=== PATIENT | female | born 1935 | race Two or more races ===

== ENCOUNTER 2016-08-13 14:51 | Inpatient (IN) | payer MEDICARE, MEDICAID ==
[~2016-08-13] VITALS: Ht 152.4 cm; Wt 45.4 kg
--- NOTE | 2016-08-13 14:35 | Emergency Room Report ---
History of Present Illness General Chief Complaint: General Complaint Source: Patient, EMS Present Illness HPI The patient is brought in for failure to thrive. She is from a SNF situation. Apparently she's not been eating. She complains about a mild headache. Diffuse in the top of her head. Chronic and constant (she denies pain to RN). She's not had a medication that she knows of for this. She denies any fevers, chills, cough, nausea, vomiting, diarrhea, dysuria or joint pain. She does have a history of schizophrenia and therefore the history is questionable. H/O non-thrombocytopenic purpura, chronic renal disease Allergies: Coded Allergies: No Known Allergies (Unverified , 08/13/16) Patient History Past Medical History: see triage record Social History: Denies: smoking Social History Narrative SNF Now: No Reviewed Nursing Documentation: PMH: Agreed, PSxH: Agreed Review of Systems All Other Systems: limited Physical Exam Vital Signs Date Time Temp Pulse Resp B/P Pulse Ox O2 Delivery O2 Flow Rate FiO2 08/13/16 14:26 98.1 78 16 100/60 98 Room Air Sp02 EP Interpretation: reviewed, normal General Appearance: no apparent distress, non-toxic, other - delusoinal, Chronically Ill Head: normocephalic Eyes: bilateral eye PERRL, bilateral eye normal inspection ENT: dry mucus membranes Neck: supple Respiratory: lungs clear, normal breath sounds Cardiovascular #1: bradycardia Cardiovascular #2: 2+ radial (R) Gastrointestinal: normal inspection, normal bowel sounds, non tender, no mass, non-distended Musculoskeletal: back normal, normal range of motion Neurologic: alert, motor strength/tone normal, DTRs symmetric, sensory intact, cerebellar normal, speech normal - pressured, oriented - X1 Psychiatric: no suicidal/homicidal ideation, other - delusoinal, confabulates and responds to internal stimuli Skin: normal inspection, warm/dry Medical Decision Making Diagnostic Impression: Primary Impression: Failure to thrive Qualified Codes: R62.7 - Adult failure to thrive Additional Impressions: Bradycardia Renal insufficiency Schizophrenia Qualified Codes: F20.9 - Schizophrenia, unspecified ER Course The patient presents not eating from a nursing home facility. She has a history of schizophrenia. Differential includes occult infection, to thrive, exacerbation of schizophrenia amongst others. Evaluation be undertaken with labs, EKG, chest x-ray and urinalysis. Patient will be given gentle IV hydration. The patient EKG shows bradycardia. The patient tolerating this well and is quite loquacious. TSH will be obtained. Labs remarkable for renal insufficiency. Patient ate here. Patient escalating here. Somewhat delusional. Ativan ordered. Improved with ativan an resting. Patient still needs observation. Admit telemetry Dr. Jain. Laboratory Tests Test 08/13/16 14:59 White Blood Count 6.3 K/UL (4.8-10.8) Red Blood Count 4.17 M/UL (4.20-5.40) L Hemoglobin 11.8 G/DL (12.0-16.0) L Hematocrit 37.8 % (37.0-47.0) Mean Corpuscular Volume 91 FL (80-99) Mean Corpuscular Hemoglobin 28.3 PG (27.0-31.0) Mean Corpuscular Hemoglobin Concent 31.2 G/DL (32.0-36.0) L Red Cell Distribution Width 13.5 % (11.6-14.8) Platelet Count 271 K/UL (150-450) Mean Platelet Volume 8.5 FL (6.5-10.1) Neutrophils (%) (Auto) 67.6 % (45.0-75.0) Lymphocytes (%) (Auto) 22.2 % (20.0-45.0) Monocytes (%) (Auto) 5.9 % (1.0-10.0) Eosinophils (%) (Auto) 3.6 % (0.0-3.0) H Basophils (%) (Auto) 0.7 % (0.0-2.0) Prothrombin Time 10.5 SEC (9.30-11.50) Prothrombin Time INR 1.0 (0.9-1.1) PTT 24 SEC (23-33) Sodium Level 141 mEQ/L (135-145) Potassium Level 3.7 mEQ/L (3.4-4.9) Chloride Level 95 mEQ/L (98-107) L Carbon Dioxide Level 31 mEQ/L (20-30) H Anion Gap 15 (5-15) Blood Urea Nitrogen 47 mg/dL (7-23) H Creatinine 2.7 mg/dL (0.5-0.9) H Estimate Glomerular Filtration Rate mL/min (>60) Glucose Level 80 mg/dL (74-106) Calcium Level 8.7 mg/dL (8.6-10.2) Total Bilirubin 0.2 mg/dL (0.0-1.2) Aspartate Amino Transferase (AST) 19 U/L (5-40) Alanine Aminotransferase (ALT) 5 U/L (3-33) Alkaline Phosphatase 82 U/L (35-104) Total Creatine Kinase 33 U/L (26-140) Troponin I < 0.30 ng/mL (<=0.30) Pro-B-Type Natriuretic Peptide 923 pg/mL (0-450) H Total Protein 6.7 g/dL (6.6-8.7) Albumin 3.6 g/dL (3.5-5.2) Globulin 3.1 g/dL Albumin/Globulin Ratio 1.1 (1.0-2.7) Lipase 93 U/L (< 60) H Thyroid Stimulating Hormone (TSH) 3.550 uIU/mL (0.300-4.500) EKG Diagnostic Results Rate: bradycardiac Rhythm: NSR ST Segments: no acute changes Rhythm Strip Diag. Results EP Interpretation: yes Rhythm: no PVC's, no ectopy Chest X-Ray Diagnostic Results EP Interpretation: Yes Findings: no consolidation, no effusion, no pneumothorax, no acute cardiopulmonary disease Number of Views: 1 Last Vital Signs Date Time Temp Pulse Resp B/P Pulse Ox O2 Delivery O2 Flow Rate FiO2 08/14/16 04:00 97.2 55 18 141/74 98 Room Air Status: improved Disposition: ADMITTED INPATIENT Condition: Serious Prudencio Delgado M.D. Aug 13, 2016 14:35
[~2016-08-13 14:51] MED LIST: ACETAMINOP160 MG/54 ORAL; AMLODIPINE BESY10 MG ORAL; ARICEPT10 MG ORAL; CATAPRES0.1 MG ORAL; DOCUSATE SODIU100 MG ORAL; METOPROLOL TART50 M1 ORAL; MILK OF MA2400 MG/10 ORAL; MULTIVITAMINS1 EAC2 ORAL; TYLENOL650 MG/20. ORAL
[2016-08-13 14:52] VITALS: BP 112/92
[2016-08-13 15:11] LABS: BASOPHILS % (AUTO) 0.7 % (0.0-2.0); EOSINOPHILS % (AUTO) 3.6 % (0.0-3.0); LYMPHOCYTES % (AUTO) 22.2 % (20.0-45.0); MEAN CORPUSCULAR HEMOGLOBIN 28.3 PG (27.0-31.0); MEAN CORPUSCULAR HGB CONC 31.2 G/DL (32.0-36.0); MEAN CORPUSCULAR VOLUME 91 FL (80-99); MEAN PLATELET VOLUME 8.5 FL (6.5-10.1); MONOCYTES % (AUTO) 5.9 % (1.0-10.0); NEUTROPHILS % (AUTO) 67.6 % (45.0-75.0); PLATELET COUNT 271 K/UL (150-450); RED BLOOD COUNT 4.17 M/UL (4.20-5.40); RED CELL DISTRIBUTION WIDTH 13.5 % (11.6-14.8); WHITE BLOOD COUNT 6.3 K/UL (4.8-10.8)
[2016-08-13 15:22] LABS: PROTHROMBIN TIME 10.5 SEC (9.30-11.50)
[2016-08-13 15:27] LABS: TROPONIN I < 0.30 ng/mL (<=0.30)
[2016-08-13 15:28] LABS: ALANINE AMINOTRANSFERASE 5 U/L (3-33); ASPARTATE AMINO TRANSFERASE 19 U/L (5-40); CALCIUM 8.7 mg/dL (8.6-10.2); CHLORIDE 95 mEQ/L (98-107); CREATININE 2.7 mg/dL (0.5-0.9); LIPASE 93 U/L (< 60); POTASSIUM 3.7 mEQ/L (3.4-4.9); SODIUM 141 mEQ/L (135-145)
[2016-08-13 15:42] LABS: ALBUMIN/GLOBULIN RATIO 1.1 (1.0-2.7); ANION GAP 15 (5-15); CARBON DIOXIDE 31 mEQ/L (20-30); HEMOLYSIS 10; TOTAL PROTEIN 6.7 g/dL (6.6-8.7)
--- NOTE | 2016-08-13 16:27 | Diagnostic Imaging Report ---
Indication: Chest pain Technique: Single portable AP view of the chest. Findings: Comparison: None. Aortic arch mildly calcified. The bones and extra pulmonary soft tissues, remainder of the cardiomediastinal silhouette, pulmonary vasculature and parenchyma, and pleural surfaces are unremarkable. IMPRESSION: Otosclerosis Otherwise negative portable AP chest.
[2016-08-13 16:44] VITALS: BP 116/82
[2016-08-13] MEDS ORDERED: Mylanta II UD 30ml ORAL PRN (17:45)
[2016-08-13] MEDS ORDERED: Morphine Sulfate 2mg/ml Inj IVP PRN (17:45)
[2016-08-13] MEDS ORDERED: Zolpidem 5mg tab ORAL PRN (17:45)
[2016-08-13] MEDS ORDERED: LORazepam Inj 2mg/ml 1ml IV PRN (17:45)
[2016-08-13] MEDS ORDERED: Miralax 17gm pkt ORAL PRN (17:45)
[2016-08-13] MEDS ORDERED: LORazepam Inj 2mg/ml 1ml IV ONE (18:15)
[2016-08-13] MEDS ORDERED: LORazepam 1mg tab ORAL ONE (18:15)
[2016-08-13 18:48] VITALS: BP 114/79
[2016-08-13] MEDS: Metoprolol 50mg tab ORAL SCH (21:00)
[2016-08-13 21:34] VITALS: BP 125/63
[2016-08-13 23:20] VITALS: BP 126/68
[2016-08-13] MEDS: Heparin 5000 units/ml inj SUBQ SCH (23:30)
[2016-08-14] VITALS (7 sets, daily range): BP systolic 98–160; BP diastolic 55–85
[2016-08-14] MEDS: Heparin 5000 units/ml inj SUBQ SCH ×2 (09:00→20:54)
[2016-08-14] MEDS: Metoprolol 50mg tab ORAL SCH ×2 (09:37→20:54)
[2016-08-14] MEDS: Donepezil 10mg tab ORAL SCH (09:37)
[2016-08-14 10:00] LABS: BASOPHILS % (AUTO) 0.6 % (0.0-2.0); EOSINOPHILS % (AUTO) 2.4 % (0.0-3.0); LYMPHOCYTES % (AUTO) 23.6 % (20.0-45.0); MEAN CORPUSCULAR HEMOGLOBIN 28.7 PG (27.0-31.0); MEAN CORPUSCULAR HGB CONC 31.6 G/DL (32.0-36.0); MEAN CORPUSCULAR VOLUME 91 FL (80-99); MEAN PLATELET VOLUME 7.9 FL (6.5-10.1); MONOCYTES % (AUTO) 5.8 % (1.0-10.0); NEUTROPHILS % (AUTO) 67.6 % (45.0-75.0); PLATELET COUNT 243 K/UL (150-450); RED BLOOD COUNT 4.77 M/UL (4.20-5.40); RED CELL DISTRIBUTION WIDTH 13.4 % (11.6-14.8); WHITE BLOOD COUNT 4.4 K/UL (4.8-10.8)
--- NOTE | 2016-08-14 10:08 | History and Physical Report ---
DATE OF ADMISSION: 08/13/2016 TIME SEEN: At 7 a.m. ATTENDING PHYSICIAN: Jong Jain D.O. CONSULTANTS: 1. Jong Jain D.O. 2. Milad Gavin M.D. 3. Paramjit Avery M.D. 4. Lolita Rey M.D. CHIEF COMPLAINT: Failure to thrive, weakness, and confusion. BRIEF HISTORY: This is a 80-year-old female from [facility] presented with above-mentioned diagnoses admitted to medical floor for further treatment and plan. The patient is bedside, confused, not talking much. REVIEW OF SYSTEMS: Unavailable. PAST MEDICAL HISTORY: Include failure to thrive, , severe bradycardia, hypertension, and schizophrenia. PAST SURGICAL HISTORY: None. MEDICATIONS: Include Norvasc, Aricept, Lopressor, Tylenol, Morphine, MiraLAX, Zofran, Ativan, Ambien, Mylanta, and Dextrose. ALLERGIES: Denies. SOCIAL HISTORY: No smoking. No alcohol. No intravenous drug abuse. FAMILY HISTORY: Noncontributory. PHYSICAL EXAMINATION: GENERAL: Calm in bed, oriented x4, in no acute distress. VITAL SIGNS: Showed a temperature 97, pulse 55, respirations 18, and blood pressure 141/74. CARDIOVASCULAR: No murmur. LUNGS: Poor air exchange. ABDOMEN: Bowel sounds positive. Nontender and nondistended. EXTREMITIES: No cyanosis, clubbing, or edema. NEUROLOGIC: The patient moves all extremities with slightly weak. LABORATORY DATA: Labs at this time show hemoglobin 11.8, otherwise CBC is normal. BMP shows chloride 95, bicarbonate 31, BUN and creatinine 47 and 2.7, BNP is 923 and INR is 11.0. PTT is 24. ASSESSMENT: 1. Failure to thrive. 2. Anemia. 3. . 4. Severe bradycardia. 5. Hypertension. 6. Schizophrenia. PLAN: Continue premedications. OT/PT and dietary evaluation, CBC and BNP with Dr. Avery, Dr. Gavin, Dr. Knight, Dr. Laughlin, and Dr. Gamboa to consult. Jong Jain D.O. DR: SU JOB#: [id number] CC:
[2016-08-14 10:15] LABS: ALANINE AMINOTRANSFERASE 6 U/L (3-33); AMYLASE 45 U/L (10-110); ANION GAP 13 (5-15); ASPARTATE AMINO TRANSFERASE 19 U/L (5-40); CARBON DIOXIDE 32 mEQ/L (20-30); CHLORIDE 99 mEQ/L (98-107); CHOLESTEROL 176 mg/dL (< 200); CHOLESTEROL/HDL RATIO 3.1 (3.3-4.4); CREATININE 1.6 mg/dL (0.5-0.9); HEMOLYSIS 7; LDL CHOLESTEROL (CALC.) 82 mg/dL (60-99); LIPASE 82 U/L (< 60); SODIUM 144 mEQ/L (135-145); TOTAL PROTEIN 7.1 g/dL (6.6-8.7)
--- NOTE | 2016-08-14 10:48 | Consultation ---
History of Present Illness General Date patient seen: Aug 14, 2016 Time patient seen: 10:00 Chief Complaint: General Complaint Referring physician: dr Jain Reason for Consultation: medical management Present Illness HPI 80 y/old female with hx of schizophrenia brought to ED from SNF for evaluation for failure to thrive. patient was not eating. She complained of mild diffuse constant headache in ED She denied any fevers, chills, cough, nausea, vomiting, diarrhea, dysuria, flank pain or joint pain. patient is not quite a reliable in providing info giving her history of schizophrenia Workup in ED revealed evidence of renal insufficiency -47/2.7 troponin negative ECG SB slightly elevated lipase -93 CXR no acute cardiopulmonary changes patient was admitted for further management Allergies: Coded Allergies: No Known Allergies (Unverified , 08/13/16) Medication History Scheduled Amlodipine Besylate* (Amlodipine Besylate*), 10 MG ORAL DAILY, (Reported) Clonidine Hcl* (Catapres*), 0.1 MG ORAL EVERY 4 HOURS, (Reported) Docusate Sodium* (Docusate Sodium*), 100 MG ORAL TWICE A DAY, (Reported) Donepezil Hcl* (Aricept*), 10 MG ORAL DAILY, (Reported) Magnesium Hydroxide* (Milk Of Magnesia*), 30 ML ORAL DAILY, (Reported) Metoprolol Tartrate* (Metoprolol Tartrate*), 50 MG ORAL EVERY 12 HOURS, ( Reported) Multivitamins* (Multivitamins*), 1 TAB ORAL DAILY, (Reported) Scheduled PRN Acetaminophen (Acetaminophen), 650 MG ORAL Q6H PRN for Prn Headache/Temp > 101, (Reported) Acetaminophen* (Acetaminophen*), 320 MG ORAL Q6H PRN for Mild Pain/Temp > 100.5, (Reported) Patient History Healthcare decision maker SHAHBAZ ARDON Resuscitation status Full Code Advanced Directive on File No Past Medical/Surgical History Past Medical/Surgical History: (1) HTN (hypertension) (2) Encephalopathy (3) Renal insufficiency (4) Schizophrenia Review of Systems Constitutional: Reports: weakness Eye: Reports: no symptoms ENT: Reports: no symptoms Respiratory: Reports: no symptoms Cardiovascular: Reports: no symptoms Gastrointestinal: Reports: no symptoms Genitourinary: Reports: see HPI Musculoskeletal: Reports: no symptoms Skin: Reports: no symptoms Psychiatric: Reports: other - schizophrenia Neurological: Reports: other - encephalopathy Endocrine: Reports: no symptoms Hematologic/Lymphatic: Reports: no symptoms ROS Narrative patient is not reliable in providing history giving her diagnosis of schizophrenia, limited ROS Physical Exam General Appearance: no apparent distress, alert, cachetic, other - slightly agitated, awake, alert, resposnive, no eye contact Lines, tubes and drains: peripheral HEENT: normocephalic, atraumatic, anicteric, mucous membranes moist Neck: non-tender, supple Respiratory/Chest: lungs clear, normal breath sounds, no respiratory distress, no accessory muscle use Cardiovascular/Chest: normal rate - occ nicanor in 50 th, regular rhythm, no JVD Abdomen: normal bowel sounds, non tender, soft, no organomegaly Extremities: normal range of motion, non-tender, normal inspection, no calf tenderness, normal capillary refill, non-pitting Neurologic: no motor/sensory deficits, alert, responsive Musculoskeletal: normal muscle bulk Last 24 Hour Vital Signs Date Time Temp Pulse Resp B/P Pulse Ox O2 Delivery O2 Flow Rate FiO2 08/14/16 09:38 73 133/70 08/14/16 09:37 73 133/70 08/14/16 04:00 97.2 55 18 141/74 98 Room Air 08/14/16 01:46 97.2 60 16 160/85 99 Room Air 08/14/16 01:30 68 16 128/70 100 Room Air 08/14/16 01:30 68 16 128/70 100 Room Air 08/13/16 23:20 65 17 126/68 100 Room Air 08/13/16 21:34 98.0 59 18 125/63 100 Room Air 08/13/16 21:00 65 126/68 08/13/16 18:48 98.0 62 15 114/79 100 Room Air 08/13/16 16:44 98.0 64 16 116/82 100 Room Air 08/13/16 14:52 98.0 63 16 112/92 97 Room Air 08/13/16 14:26 98.1 78 16 100/60 98 Room Air Intake and Output 08/13/16 08/14/16 19:00 07:00 Intake Total 0 ml 960 ml Balance 0 ml 960 ml Intake Oral 0 ml 360 ml IV Total 600 ml # Voids 1 Laboratory Tests Test 08/13/16 14:59 08/14/16 08:08 08/14/16 08:40 White Blood Count 6.3 K/UL (4.8-10.8) 4.4 K/UL (4.8-10.8) L Red Blood Count 4.17 M/UL (4.20-5.40) L 4.77 M/UL (4.20-5.40) Hemoglobin 11.8 G/DL (12.0-16.0) L 13.7 G/DL (12.0-16.0) Hematocrit 37.8 % (37.0-47.0) 43.2 % (37.0-47.0) Mean Corpuscular Volume 91 FL (80-99) 91 FL (80-99) Mean Corpuscular Hemoglobin 28.3 PG (27.0-31.0) 28.7 PG (27.0-31.0) Mean Corpuscular Hemoglobin Concent 31.2 G/DL (32.0-36.0) L 31.6 G/DL (32.0-36.0) L Red Cell Distribution Width 13.5 % (11.6-14.8) 13.4 % (11.6-14.8) Platelet Count 271 K/UL (150-450) 243 K/UL (150-450) Mean Platelet Volume 8.5 FL (6.5-10.1) 7.9 FL (6.5-10.1) Neutrophils (%) (Auto) 67.6 % (45.0-75.0) 67.6 % (45.0-75.0) Lymphocytes (%) (Auto) 22.2 % (20.0-45.0) 23.6 % (20.0-45.0) Monocytes (%) (Auto) 5.9 % (1.0-10.0) 5.8 % (1.0-10.0) Eosinophils (%) (Auto) 3.6 % (0.0-3.0) H 2.4 % (0.0-3.0) Basophils (%) (Auto) 0.7 % (0.0-2.0) 0.6 % (0.0-2.0) Prothrombin Time 10.5 SEC (9.30-11.50) Prothromb Time International Ratio 1.0 (0.9-1.1) Activated Partial Thromboplast Time 24 SEC (23-33) Sodium Level 141 mEQ/L (135-145) 144 mEQ/L (135-145) Potassium Level 3.7 mEQ/L (3.4-4.9) 3.0 mEQ/L (3.4-4.9) L Chloride Level 95 mEQ/L (98-107) L 99 mEQ/L (98-107) Carbon Dioxide Level 31 mEQ/L (20-30) H 32 mEQ/L (20-30) H Anion Gap 15 (5-15) 13 (5-15) Blood Urea Nitrogen 47 mg/dL (7-23) H 35 mg/dL (7-23) H Creatinine 2.7 mg/dL (0.5-0.9) H 1.6 mg/dL (0.5-0.9) H Estimat Glomerular Filtration Rate mL/min (>60) mL/min (>60) Glucose Level 80 mg/dL (74-106) 113 mg/dL (74-106) H Calcium Level 8.7 mg/dL (8.6-10.2) 9.0 mg/dL (8.6-10.2) Total Bilirubin 0.2 mg/dL (0.0-1.2) 0.2 mg/dL (0.0-1.2) Aspartate Amino Transf (AST/SGOT) 19 U/L (5-40) 19 U/L (5-40) Alanine Aminotransferase (ALT/SGPT) 5 U/L (3-33) 6 U/L (3-33) Alkaline Phosphatase 82 U/L (35-104) 85 U/L (35-104) Total Creatine Kinase 33 U/L (26-140) Troponin I < 0.30 ng/mL (<=0.30) Pro-B-Type Natriuretic Peptide 923 pg/mL (0-450) H Total Protein 6.7 g/dL (6.6-8.7) 7.1 g/dL (6.6-8.7) Albumin 3.6 g/dL (3.5-5.2) 3.6 g/dL (3.5-5.2) Globulin 3.1 g/dL 3.5 g/dL Albumin/Globulin Ratio 1.1 (1.0-2.7) 1.0 (1.0-2.7) Lipase 93 U/L (< 60) H 82 U/L (< 60) H Thyroid Stimulating Hormone (TSH) 3.550 uIU/mL (0.300-4.500) Urine Color Pending Urine Appearance Pending Urine pH Pending Urine Specific [place] Pending Urine Protein Pending Urine Glucose (UA) Pending Urine Ketones Pending Urine Occult Blood Pending Urine Nitrite Pending Urine Bilirubin Pending Urine Urobilinogen Pending Urine Leukocyte Esterase Pending Urine RBC Pending Urine WBC Pending Urine Squamous Epithelial Cells Pending Urine Bacteria Pending Urine Eosinophils Pending Urine Osmolality Pending Urine Random Sodium Pending Urine Random Chloride Pending Urine Potassium Timed Pending Plasma/Serum Osmolality Pending Cortisol Pending Hemoglobin A1c Pending Triglycerides Level 192 mg/dL (< 150) H Cholesterol Level 176 mg/dL (< 200) LDL Cholesterol 82 mg/dL (60-99) HDL Cholesterol 56 mg/dL (> 60) Cholesterol/HDL Ratio 3.1 (3.3-4.4) L Amylase Level 45 U/L (10-110) Height (Feet): 5 Height (Inches): 0.00 Weight (Pounds): 100 Medications Current Medications Medications (Trade) Dose Ordered Sig/Brenda Route PRN Reason Start Time Stop Time Status Last Admin Dose Admin Acetaminophen (Tylenol) 650 mg Q4H PRN ORAL T>100.5 08/13/16 17:45 09/12/16 17:44 Al Hydroxide/Mg Hydroxide (Mylanta II) 30 ml Q6H PRN ORAL dyspepsia 08/13/16 17:45 09/12/16 17:44 Amlodipine Besylate (Norvasc) 10 mg DAILY ORAL 08/14/16 09:00 09/13/16 08:59 08/14/16 09:38 Dextrose (Dextrose 50%) STAT PRN IV Hypoglycemia 08/13/16 17:45 09/12/16 17:44 Donepezil HCl (Aricept) 10 mg DAILY ORAL 08/14/16 09:00 09/13/16 08:59 08/14/16 09:37 Heparin Sodium (Porcine) (Heparin 5000 units/ml) 5,000 units EVERY 12 HOURS SUBQ 08/13/16 21:00 09/12/16 20:59 08/14/16 09:00 Lorazepam (Ativan 2mg/ml 1ml) 0.5 mg Q4H PRN IV For Anxiety 08/13/16 17:45 08/20/16 17:44 Metoprolol Tartrate (Lopressor) 50 mg EVERY 12 HOURS ORAL 08/13/16 21:00 09/12/16 20:59 08/14/16 09:37 Morphine Sulfate (Morphine Sulfate) 1 mg Q4H PRN IVP Severe Pain (Pain Scale 7-10) 08/13/16 17:45 08/20/16 17:44 Ondansetron HCl (Zofran) 4 mg Q6H PRN IVP Nausea & Vomiting 08/13/16 17:45 09/12/16 17:44 Polyethylene Glycol (Miralax) 17 gm HSPRN PRN ORAL Constipation 08/13/16 17:45 09/12/16 17:44 Sodium Chloride (Sodium Chloride 1000ml bag) 1,000 ml @ 150 mls/hr Q6H40M IV 08/13/16 14:30 09/12/16 14:29 08/14/16 09:45 Zolpidem Tartrate (Ambien) 5 mg HSPRN PRN ORAL Insomnia 08/13/16 17:45 09/12/16 17:44 Assessment/Plan Assessment/Plan ASSESSMENT ATN/ARF likely due to dehydration , possible on chronic RI dehydration HTN hypokalemia chronic encephalopathy possible protein calorie malnutrition failure to thrive elevated lipase PLAN OF CARE MS floor IVF, monitor renal parameters, improving renal US avoid nephrotoxic decrease rate to 125 replace K, cehck K and Mg in am BP management with BB and CCB, occasional nicanor likely due to BB PT/OT Dietary eval check prealbumin HH, TSH ,stable check UA LFT stable , lipase trending down, amylase WNL, no abdominal complaints DVT, GI prophylaxis bowel regimen case discussed and evaluated by supervising physician Stefan Gordon)Mandy NP Aug 14, 2016 10:48
[2016-08-14 11:02] LABS: APPEARANCE,URINE CLEAR; KETONES,URINE NEGATIVE (NEGATIVE); NITRITE,URINE NEGATIVE (NEGATIVE); PH,URINE 6 (4.5-8.0); PROTEIN,URINE 2+ (NEGATIVE); UROBILINOGEN,URINE NORMAL MG/DL (0.0-1.0)
[2016-08-14 11:03] LABS: LEUKOCYTE ESTERASE ,URINE 1+ (NEGATIVE); RBC,URINE 0-2 /HPF (0 - 2); SQUAMOUS EPITHELIAL CELL,UR FEW /LPF (NONE/OCC)
[2016-08-14 11:04] LABS: BACTERIA,URINE FEW /HPF
[2016-08-14] MEDS ORDERED: LORazepam 1mg tab ORAL PRN (13:15)
[2016-08-14] MEDS: RisperiDONE 0.25mg tab ORAL SCH ×2 (17:38→17:43)
[2016-08-15] VITALS: BP 188/69
--- NOTE | 2016-08-15 02:58 | Consultation ---
DATE OF CONSULTATION: 08/14/2016 NEPHROLOGY CONSULTATION REFERRING PHYSICIAN: Jong Jain D.O. REASON FOR CONSULTATION: Hypokalemia, acute renal failure, and failure to thrive. HISTORY OF PRESENT ILLNESS: The patient is an 80-year-old female with past medical history significant for history of schizophrenia, hypertension, and malnutrition, who [facility] for an evaluation of decreased oral intake and failure to thrive. Unfortunately, the patient is at this point is confused and unable to provide meaningful history for me. Upon admission in the ER, the patient was found to be hypotensive and also found to have an acute renal failure. Her potassium was also noticed to be low. The patient consequently was admitted in the hospital with diagnosis of acute renal failure, hypokalemia, and failure to thrive. I was called for management of renal disease and electrolyte imbalance. PAST MEDICAL HISTORY: Includin. Hypertension. 2. Dementia. 3. Schizophrenia. 4. History of acute and chronic kidney disease. Baseline creatinine is unknown. MEDICATIONS: Home medications are includin. Amlodipine 10 mg p.o. daily. 2. Catapres 0.1 mg p.r.n. blood pressure more than 160. 3. Colace 100 mg p.o. b.i.d. 4. Aricept 10 mg p.o. daily. 5. Magnesium oxide 30 mg p.o. daily. 6. Metoprolol 50 mg p.o. daily. 7. Ambien one tablet p.o. daily. FAMILY HISTORY: Noncontributory. ALLERGIES: No known drug allergies. REVIEW OF SYSTEMS: Limited since the patient is not able to provide any appropriate answers to my questions but generally she denies any fever, or chills. Weakness was reported. Pulmonary: There was no shortness of breath, cough, or sputum. Cardiovascular: No chest pain or palpitation. Gastrointestinal: There was decreased oral intake. Genitourinary: Denies any dysuria, frequency, or hematuria. Musculoskeletal: No weakness or numbness. PHYSICAL EXAMINATION: VITAL SIGNS: Blood pressure 130/70, pulse rate of 73, respiratory rate of 18, and temperature of 98 degrees. HEAD AND NECK: No JVP. No LAD. Bitemporal wasting. Extraocular movement intact. Pupils are reactive to light and accommodation. LUNGS: Decreased breathing sound on the both sides. CARDIAC: Regular rate and rhythm. S1 and S2. No murmur or rub. ABDOMEN: Soft, nontender, and nondistended. EXTREMITIES: Trace edema. No clubbing. No cyanosis. LABORATORY AND DIAGNOSTIC DATA: The patient has sodium 144, potassium 399, chloride 32, BUN of 35, creatinine of 1.6, glucose of 113, and calcium of 9. ALT of 19, AST of 6, and alkaline phosphorus of 85. The albumin of 3.6, triglycerides of 192, cholesterol of 176, LDL of 82, and HDL of 56. TSH is within normal limits. Urine revealed specific gravity of 1015 pH, protein 2+, leukocyte esterase 1+, no WBC, and no RBC. CBC revealed WBC count of 4, hemoglobin of 13, hematocrit of 43, and platelet count of 243,000. ASSESSMENT: 1. Acute renal failure. 2. Hypokalemia. 3. Failure to thrive. 4. Dehydration. PLAN: Plan for the patient is to start the patient on IV fluid if the patient agrees with IV. Apparently this morning, the patient pulled her IV line. Replace the potassium. Check ultrasound of the kidney to evaluate the kidney size. Check the random urine, protein, creatinine ratio to calculate the proteinuria. Check the urine, sodium, and creatinine to calculate fractional excretion of sodium. Replace the electrolytes as needed. Avoid any NSAIDs and nephrotoxic. At the end, I would like to thank, Dr. Jong Jain, for allowing me to participate in the care of this patient. Luanne Gastelum M.D. DR: SERAFIN JOB#: [id number] CC:
[2016-08-15 04:00] VITALS: BP 161/63
--- NOTE | 2016-08-15 07:03 | General Progress Note ---
Assessment/Plan Problem List: (1) Bradycardia ICD Codes: R00.1 - Bradycardia, unspecified SNOMED: 22584753 (2) Renal insufficiency ICD Codes: N28.9 - Disorder of kidney and ureter, unspecified SNOMED: 322123139 (3) Encephalopathy ICD Codes: G93.40 - Encephalopathy, unspecified SNOMED: 44167621, 220173410 (4) HTN (hypertension) ICD Codes: I10 - Essential (primary) hypertension SNOMED: 83153595 (5) Schizophrenia ICD Codes: F20.9 - Schizophrenia, unspecified SNOMED: 60413780 Qualifiers: Qualified Codes: F20.9 - Schizophrenia, unspecified Status: stable, progressing Assessment/Plan ot pt diet cardio neph psyc f/u cbc bmp am Subjective Constitutional: Reports: weakness Allergies: Coded Allergies: No Known Allergies (Unverified , 08/13/16) All Systems: reviewed and negative except above Subjective sleepy calm Objective Last 24 Hour Vital Signs Date Time Temp Pulse Resp B/P Pulse Ox O2 Delivery O2 Flow Rate FiO2 08/15/16 04:00 98.2 55 20 161/63 96 08/15/16 00:00 97.7 59 18 188/69 100 Room Air 08/14/16 20:54 58 144/82 08/14/16 20:00 97.7 58 20 144/82 97 Room Air 08/14/16 16:00 96.3 73 19 135/70 100 Room Air 08/14/16 12:00 97.8 98 18 98/55 97 Room Air 08/14/16 12:00 97.8 98 18 101/56 97 Room Air 08/14/16 09:38 73 133/70 08/14/16 09:37 73 133/70 08/14/16 08:00 97.3 73 18 133/70 100 Room Air Intake and Output 08/14/16 08/15/16 19:00 07:00 Intake Total 240 ml 600 ml Output Total 50 ml Balance 240 ml 550 ml Intake Oral 240 ml 600 ml Output Urine Total 50 ml # Voids 2 # Bowel Movements 1 1 Laboratory Tests 08/14/16 08:08: Urine Color Pale yellow, Urine Appearance Clear, Urine pH 6, Urine Specific [place] 1.015, Urine Protein 2+H, Urine Glucose (UA) Negative, Urine Ketones Negative, Urine Occult Blood Negative, Urine Nitrite Negative, Urine Bilirubin Negative, Urine Urobilinogen Normal, Urine Leukocyte Esterase 1+H, Urine RBC 0-2 , Urine WBC 2-4, Urine Squamous Epithelial Cells Few, Urine Bacteria Few, Urine Eosinophils None seen, Urine Osmolality [Pending], Urine Random Sodium 110, Urine Random Chloride 86, Urine Potassium Timed 12, Plasma/Serum Osmolality [ Pending], Prealbumin [Pending], Cortisol [Pending] 08/14/16 08:40: White Blood Count 4.4L, Red Blood Count 4.77, Hemoglobin 13.7, Hematocrit 43.2, Mean Corpuscular Volume 91, Mean Corpuscular Hemoglobin 28.7, Mean Corpuscular Hemoglobin Concent 31.6L, Red Cell Distribution Width 13.4, Platelet Count 243, Mean Platelet Volume 7.9, Neutrophils (%) (Auto) 67.6, Lymphocytes (%) (Auto) 23.6, Monocytes (%) (Auto) 5.8, Eosinophils (%) (Auto) 2.4, Basophils (%) (Auto ) 0.6, Sodium Level 144, Potassium Level 3.0L, Chloride Level 99, Carbon Dioxide Level 32H, Anion Gap 13, Blood Urea Nitrogen 35H, Creatinine 1.6H, Estimat Glomerular Filtration Rate , Glucose Level 113H, Hemoglobin A1c 6.0, Calcium Level 9.0, Total Bilirubin 0.2, Aspartate Amino Transf (AST/SGOT) 19, Alanine Aminotransferase (ALT/SGPT) 6, Alkaline Phosphatase 85, Total Protein 7.1, Albumin 3.6, Globulin 3.5, Albumin/Globulin Ratio 1.0, Triglycerides Level 192H, Cholesterol Level 176, LDL Cholesterol 82, HDL Cholesterol 56, Cholesterol /HDL Ratio 3.1L, Amylase Level 45, Lipase 82H Height (Feet): 5 Height (Inches): 0.00 Weight (Pounds): 100 General Appearance: lethargic EENT: normal ENT inspection Neck: normal alignment Cardiovascular: normal peripheral pulses, normal rate, regular rhythm Respiratory/Chest: chest wall non-tender, lungs clear, normal breath sounds Abdomen: normal bowel sounds, non tender, soft Extremities: normal inspection Edema: no edema noted Arm (L), no edema noted Arm (R), no edema noted Leg (L), no edema noted Leg (R), no edema noted Pedal (L), no edema noted Pedal (R), no edema noted Generalized Neurologic: motor weakness Skin: normal pigmentation, warm/dry RAIZA PATINO Aug 15, 2016 07:03
[2016-08-15 08:08] LABS: CORTISOL LC 14.1 ug/dL (.)
[2016-08-15] MEDS: Metoprolol 50mg tab ORAL SCH ×2 (08:25→21:17)
[2016-08-15] MEDS: Donepezil 10mg tab ORAL SCH (08:25)
[2016-08-15] MEDS: RisperiDONE 0.25mg tab ORAL SCH ×2 (08:25→19:01)
[2016-08-15] MEDS: Heparin 5000 units/ml inj SUBQ SCH ×2 (08:35→21:18)
[2016-08-15 08:36] VITALS: BP 118/67
[2016-08-15 10:31] LABS: BASOPHILS % (AUTO) 0.6 % (0.0-2.0); EOSINOPHILS % (AUTO) 1.8 % (0.0-3.0); LYMPHOCYTES % (AUTO) 21.5 % (20.0-45.0); MEAN CORPUSCULAR HEMOGLOBIN 28.1 PG (27.0-31.0); MEAN CORPUSCULAR HGB CONC 31.1 G/DL (32.0-36.0); MEAN CORPUSCULAR VOLUME 90 FL (80-99); MEAN PLATELET VOLUME 8.6 FL (6.5-10.1); MONOCYTES % (AUTO) 5.3 % (1.0-10.0); NEUTROPHILS % (AUTO) 70.8 % (45.0-75.0); PLATELET COUNT 216 K/UL (150-450); RED CELL DISTRIBUTION WIDTH 13.5 % (11.6-14.8)
[2016-08-15 10:44] LABS: ANION GAP 14 (5-15); CALCIUM 8.5 mg/dL (8.6-10.2); CARBON DIOXIDE 24 mEQ/L (20-30); CHLORIDE 100 mEQ/L (98-107); CREATININE 1.3 mg/dL (0.5-0.9); HEMOLYSIS 29; POTASSIUM 4.3 mEQ/L (3.4-4.9); SODIUM 138 mEQ/L (135-145)
--- NOTE | 2016-08-15 12:25 | Pulmonology Progress Note ---
Assessment/Plan Assessment/Plan ASSESSMENT ATN/ARF likely due to dehydration , possible on chronic RI -improving dehydration HTN hypokalemia -resolved chronic encephalopathy possible protein calorie malnutrition failure to thrive elevated lipase PLAN OF CARE MS floor IVF, monitor renal parameters, improving creat down to 1.3 nephro follows renal US avoid nephrotoxic decrease IVF rate K and Mg stable BP management with BB and CCB, occasional nicanor likely due to BB PT/OT Dietary eval prealbumin-WNL HH, TSH ,stable UA -negative LFT stable , lipase trending down, amylase WNL, no abdominal complaints DVT, GI prophylaxis bowel regimen case discussed and evaluated by supervising physician Subjective Allergies: Coded Allergies: No Known Allergies (Unverified , 08/13/16) Subjective afebrile, no leucocytosis, no signs of respiratory distress creat trending down with IV hydration sitter at the bedside Objective Last 24 Hour Vital Signs Date Time Temp Pulse Resp B/P Pulse Ox O2 Delivery O2 Flow Rate FiO2 08/15/16 08:36 97.5 64 19 118/67 97 Room Air 08/15/16 08:25 64 118/67 08/15/16 08:25 64 118/67 08/15/16 04:00 98.2 55 20 161/63 96 08/15/16 00:00 97.7 59 18 188/69 100 Room Air 08/14/16 20:54 58 144/82 08/14/16 20:00 97.7 58 20 144/82 97 Room Air 08/14/16 16:00 96.3 73 19 135/70 100 Room Air Intake and Output 08/14/16 08/15/16 19:00 07:00 Intake Total 240 ml 600 ml Output Total 50 ml Balance 240 ml 550 ml Intake Oral 240 ml 600 ml Output Urine Total 50 ml # Voids 2 # Bowel Movements 1 1 Objective General Appearance: no apparent distress, alert, cachetic, , awake, alert, responsive, slightly anxious, no eye contact Lines, tubes and drains: peripheral HEENT: normocephalic, atraumatic, anicteric, mucous membranes moist Neck: non-tender, supple Respiratory/Chest: lungs clear, normal breath sounds, no respiratory distress, no accessory muscle use Cardiovascular/Chest: normal rate - occ nicanor in 50 th, regular rhythm, no JVD Abdomen: normal bowel sounds, non tender, soft, no organomegaly Extremities: normal range of motion, non-tender, normal inspection, no calf tenderness, normal capillary refill, non-pitting Neurologic: no motor/sensory deficits, alert, responsive Musculoskeletal: normal muscle bulk Microbiology Date/Time Source Procedure Growth Status 08/13/16 15:40 Nasal Nares MRSA Culture - Final NO METHICILLIN RESISTANT STAPH AUREUS... Complete 08/13/16 15:40 Rectum VRE Culture - Final NO VANCOMYCIN RESISTANT ENTEROCOCCUS ... Complete Laboratory Tests 08/15/16 09:50: White Blood Count 6.0, Red Blood Count 4.30, Hemoglobin 12.1, Hematocrit 38.8, Mean Corpuscular Volume 90, Mean Corpuscular Hemoglobin 28.1, Mean Corpuscular Hemoglobin Concent 31.1L, Red Cell Distribution Width 13.5, Platelet Count 216, Mean Platelet Volume 8.6, Neutrophils (%) (Auto) 70.8, Lymphocytes (%) (Auto) 21.5, Monocytes (%) (Auto) 5.3, Eosinophils (%) (Auto) 1.8, Basophils (%) (Auto ) 0.6, Sodium Level 138, Potassium Level 4.3, Chloride Level 100, Carbon Dioxide Level 24, Anion Gap 14, Blood Urea Nitrogen 22, Creatinine 1.3H, Estimat Glomerular Filtration Rate , Glucose Level 178H, Calcium Level 8.5L, Magnesium Level 1.8 Current Medications Medications (Trade) Dose Ordered Sig/Brenda Route PRN Reason Start Time Stop Time Status Last Admin Dose Admin Acetaminophen (Tylenol) 650 mg Q4H PRN ORAL T>100.5 08/13/16 17:45 09/12/16 17:44 Al Hydroxide/Mg Hydroxide (Mylanta II) 30 ml Q6H PRN ORAL dyspepsia 08/13/16 17:45 09/12/16 17:44 Amlodipine Besylate (Norvasc) 10 mg DAILY ORAL 08/14/16 09:00 09/13/16 08:59 08/15/16 08:25 Dextrose (Dextrose 50%) STAT PRN IV Hypoglycemia 08/13/16 17:45 09/12/16 17:44 Donepezil HCl (Aricept) 10 mg DAILY ORAL 08/14/16 09:00 09/13/16 08:59 08/15/16 08:25 Heparin Sodium (Porcine) (Heparin 5000 units/ml) 5,000 units EVERY 12 HOURS SUBQ 08/13/16 21:00 09/12/16 20:59 08/15/16 08:35 Lorazepam (Ativan 2mg/ml 1ml) 0.5 mg Q4H PRN IV For Anxiety 08/14/16 13:33 08/20/16 17:44 Lorazepam (Ativan) 1 mg Q6H PRN ORAL For Anxiety 08/14/16 13:15 08/21/16 13:14 Metoprolol Tartrate (Lopressor) 50 mg EVERY 12 HOURS ORAL 08/13/16 21:00 09/12/16 20:59 08/15/16 08:25 Morphine Sulfate (Morphine Sulfate) 1 mg Q4H PRN IVP Severe Pain (Pain Scale 7-10) 08/13/16 17:45 08/20/16 17:44 Ondansetron HCl (Zofran) 4 mg Q6H PRN IVP Nausea & Vomiting 08/13/16 17:45 09/12/16 17:44 Polyethylene Glycol (Miralax) 17 gm HSPRN PRN ORAL Constipation 08/13/16 17:45 09/12/16 17:44 Risperidone (RisperDAL) 0.25 mg BID ORAL 08/14/16 18:00 09/13/16 17:59 08/15/16 08:25 Sodium Chloride (Sodium Chloride 1000ml bag) 1,000 ml @ 150 mls/hr Q6H40M IV 08/13/16 14:30 09/12/16 14:29 08/14/16 09:45 Zolpidem Tartrate (Ambien) 5 mg HSPRN PRN ORAL Insomnia 08/13/16 17:45 09/12/16 17:44 Mandy Aviles NP (Vanchtein) Aug 15, 2016 12:25
[2016-08-15 12:45] VITALS: BP 136/73
[2016-08-15 16:15] VITALS: BP 134/78
[2016-08-15 20:08] VITALS: BP 137/67
--- NOTE | 2016-08-15 21:38 | Consultation ---
DATE OF CONSULTATION: 08/15/2016 CHIEF COMPLAINT: Failure to thrive. HISTORY OF PRESENT ILLNESS: Most of the history is per chart. The patient lives in the long-term. The patient has a history of dementia, who currently is admitted to the hospital with failure to thrive. While I am talking to her, she is actually eating pretty well. PAST MEDICAL HISTORY: 1. Dementia. 2. Hypertension. 3. History of schizophrenia. 4. Constipation. 5. History of non-thrombocytopenic purpura. PAST SURGICAL HISTORY: None. MEDICATIONS: Please see medication reconciliation list. ALLERGIES: No known drug allergies. SOCIAL HISTORY: She currently lives in long-term. No recent history of tobacco, alcohol, or drug abuse. FAMILY HISTORY: Noncontributory. REVIEW OF SYSTEMS: Limited. PHYSICAL EXAMINATION: GENERAL: This is a well-developed female and mildly cachectic looking. VITAL SIGNS: Temperature is 98.2 degrees, pulse is 65, respirations 20, and blood pressure is 120/63. HEENT: Normocephalic and atraumatic. Sclerae anicteric. NECK: Supple. No evidence of lymphadenopathy. CARDIOVASCULAR: Bradycardic. Plus S1 and S2. No obvious murmur. LUNGS: Decreased breath sounds bilaterally based on supine exam. ABDOMEN: Soft and nontender. No rebound. No guarding. No peritoneal sign. EXTREMITIES: No cyanosis. No clubbing. No edema. LABORATORY DATA: White count 4.4, hemoglobin 13.7, hematocrit 43, and platelet count is 243,000. Chem-7, sodium 144, potassium 3.0, BUN is 35, and creatinine is 1.6. Glucose is 113. Liver function tests grossly normal. Amylase is 45. Lipase mildly elevated at 82. TSH normal. Albumin was 3.6. ASSESSMENT AND PLAN: This is an [id number] with admission to the hospital with failure to thrive, but at this time, the patient is actually eating pretty well. Her albumin is 3.6 and we are going to hold off on doing any plans for any artificial feeding including NG tube or G-tube feeding at this time. The patient has some renal insufficiency with elevated glucose, possibly new onset diabetes and chronic renal insufficiency. We will follow. Repeat laboratories for tomorrow. Repeat amylase and lipase for tomorrow. We will check iron, B12, folate, and vitamin D level tomorrow and consider doing GI procedures if needed. I want to thank, Dr. Jong Jain, for this kind referral. Milad Gavin M.D. DR: TANO JOB#: [id number] CC: Jong Jain D.O.
[2016-08-16 00:40] VITALS: BP 148/79
[2016-08-16 04:00] VITALS: BP 163/86
[2016-08-16] MEDS: LORazepam Inj 2mg/ml 1ml IV PRN (04:24)
[2016-08-16 07:14] LABS: BASOPHILS % (AUTO) 0.9 % (0.0-2.0); EOSINOPHILS % (AUTO) 4.5 % (0.0-3.0); LYMPHOCYTES % (AUTO) 38.9 % (20.0-45.0); MEAN CORPUSCULAR HEMOGLOBIN 28.3 PG (27.0-31.0); MEAN CORPUSCULAR HGB CONC 31.6 G/DL (32.0-36.0); MEAN CORPUSCULAR VOLUME 90 FL (80-99); MEAN PLATELET VOLUME 9.6 FL (6.5-10.1); MONOCYTES % (AUTO) 7.1 % (1.0-10.0); NEUTROPHILS % (AUTO) 48.5 % (45.0-75.0); PLATELET COUNT 180 K/UL (150-450); RED BLOOD COUNT 4.52 M/UL (4.20-5.40); RED CELL DISTRIBUTION WIDTH 13.8 % (11.6-14.8); WHITE BLOOD COUNT 5.2 K/UL (4.8-10.8)
[2016-08-16 07:25] LABS: ALANINE AMINOTRANSFERASE 6 U/L (3-33); ALBUMIN/GLOBULIN RATIO 0.8 (1.0-2.7); ANION GAP 10 (5-15); ASPARTATE AMINO TRANSFERASE 18 U/L (5-40); CALCIUM 8.8 mg/dL (8.6-10.2); CARBON DIOXIDE 30 mEQ/L (20-30); CHLORIDE 101 mEQ/L (98-107); CREATININE 1.4 mg/dL (0.5-0.9); HEMOLYSIS 4; SODIUM 141 mEQ/L (135-145); TOTAL PROTEIN 6.6 g/dL (6.6-8.7)
[2016-08-16 07:27] LABS: AMYLASE 48 U/L (10-110); HEMOLYSIS 9; IRON 82 ug/dL (37-145); LIPASE 73 U/L (< 60); TOTAL IRON BINDING CAPACITY 251 ug/dL (250-400)
--- NOTE | 2016-08-16 07:28 | Progress Note ---
DATE: 08/14/2016 SUBJECTIVE: The patient is an 80-year-old female . PLAN: Plan is to continue treatment Risperdal to reduce her agitation and stabilize her mood. Chart was reviewed and discussed with staff. Seen and assessed at the bedside. Paramjit vAery M.D. DR: Jillian JOB#: [id number] CC:
--- NOTE | 2016-08-16 07:48 | Progress Note ---
DATE: 08/15/2016 SUBJECTIVE: This is an 80-year-old female secondary to . PLAN: Plan for this patient is to treat with psychiatric medication regimen consisting of Risperdal to reduce her agitation and irritability. Continue to provide behavioral management and treatment with Risperdal to reduce agitation. Chart was reviewed and discussed with staff. The patient was seen and assessed at the bedside. Paramjit Avery M.D. DR: Jillian JOB#: [id number] CC:
--- NOTE | 2016-08-16 08:03 | Nephrology Progress Note ---
Assessment/Plan Assessment 1. Acute renal failure. 2. Hypokalemia.resolved 3. Failure to thrive now pt has good appetite 4. Dehydration. Plan plan to continue ivf monitoring electrolyte avoid NSAID Continuing calori count Subjective ROS Limited/Unobtainable: Yes Constitutional: Reports: no symptoms HEENT: Reports: no symptoms Genitourinary: Reports: no symptoms Neurologic/Psychiatric: Reports: no symptoms Subjective alert and wake confused Objective Objective Last 24 Hour Vital Signs Date Time Temp Pulse Resp B/P Pulse Ox O2 Delivery O2 Flow Rate FiO2 08/16/16 04:00 97.5 57 21 163/86 97 Room Air 08/16/16 00:40 97.2 69 16 148/79 96 Room Air 08/15/16 21:17 55 137/67 08/15/16 20:08 97.2 55 18 137/67 96 Room Air 08/15/16 16:15 97.3 64 18 134/78 96 Room Air 08/15/16 12:45 97.1 56 14 136/73 98 Room Air 08/15/16 08:36 97.5 64 19 118/67 97 Room Air 08/15/16 08:25 64 118/67 08/15/16 08:25 64 118/67 Intake and Output 08/15/16 08/16/16 19:00 07:00 Intake Total 1100 ml 1340 ml Balance 1100 ml 1340 ml Intake Oral 1100 ml 440 ml IV Total 900 ml # Voids 2 3 Laboratory Tests 08/15/16 09:50: White Blood Count 6.0, Red Blood Count 4.30, Hemoglobin 12.1, Hematocrit 38.8, Mean Corpuscular Volume 90, Mean Corpuscular Hemoglobin 28.1, Mean Corpuscular Hemoglobin Concent 31.1L, Red Cell Distribution Width 13.5, Platelet Count 216, Mean Platelet Volume 8.6, Neutrophils (%) (Auto) 70.8, Lymphocytes (%) (Auto) 21.5, Monocytes (%) (Auto) 5.3, Eosinophils (%) (Auto) 1.8, Basophils (%) (Auto ) 0.6, Sodium Level 138, Potassium Level 4.3, Chloride Level 100, Carbon Dioxide Level 24, Anion Gap 14, Blood Urea Nitrogen 22, Creatinine 1.3H, Estimat Glomerular Filtration Rate , Glucose Level 178H, Calcium Level 8.5L, Magnesium Level 1.8 08/16/16 05:10: White Blood Count 5.2, Red Blood Count 4.52, Hemoglobin 12.8, Hematocrit 40.5, Mean Corpuscular Volume 90, Mean Corpuscular Hemoglobin 28.3, Mean Corpuscular Hemoglobin Concent 31.6L, Red Cell Distribution Width 13.8, Platelet Count 180, Mean Platelet Volume 9.6, Neutrophils (%) (Auto) 48.5, Lymphocytes (%) (Auto) 38.9, Monocytes (%) (Auto) 7.1, Eosinophils (%) (Auto) 4.5H, Basophils (%) (Auto ) 0.9, Sodium Level 141, Potassium Level 4.0, Chloride Level 101, Carbon Dioxide Level 30, Anion Gap 10, Blood Urea Nitrogen 20, Creatinine 1.4H, Estimat Glomerular Filtration Rate , Glucose Level 85, Calcium Level 8.8, Iron Level 82, Total Iron Binding Capacity 251, Percent Iron Saturation 33, Unsaturated Iron Binding 169, Total Bilirubin 0.3, Aspartate Amino Transf (AST/ SGOT) 18, Alanine Aminotransferase (ALT/SGPT) 6, Alkaline Phosphatase 74, Total Protein 6.6, Albumin 3.1L, Globulin 3.5, Albumin/Globulin Ratio 0.8L, Amylase Level 48, Lipase 73H, Carcinoembryonic Antigen [Pending], Vitamin B12 Level 268 , Vitamin D 25-Hydroxy [Pending], 25-Hydroxy Vitamin D2 [Pending], 25-Hydroxy Vitamin D3 [Pending], Folate [Pending] Height (Feet): 5 Height (Inches): 0.00 Weight (Pounds): 100 Objective HEAD AND NECK: No JVP. No LAD. Bitemporal wasting. Extraocular movement intact. Pupils are reactive to light and accommodation. LUNGS: Decreased breathing sound on the both sides. CARDIAC: Regular rate and rhythm. S1 and S2. No murmur or rub. ABDOMEN: Soft, nontender, and nondistended. EXTREMITIES: Trace edema. No clubbing. No cyanosis. YULIYAJAIPatCARLTON Aug 16, 2016 08:03
[2016-08-16 08:06] VITALS: BP 131/65
--- NOTE | 2016-08-16 08:09 | Diagnostic Imaging Report ---
Indication: Elevated renal function tests Technique: Renal ultrasound Findings: The right kidney measures 9.6 cm in length. The left kidney measures 9.0 cm in length. Bilateral kidneys demonstrate normal echogenicity. Right renal cyst measures 3.9 cm. There is no hydronephrosis. No sonographically evident stones are seen. The visualized portions of the inferior vena cava are unremarkable. Bladder is collapsed by Sandoval catheter. Impression: No hydronephrosis. Right renal cyst. Sandoval catheter.
[2016-08-16] MEDS: Donepezil 10mg tab ORAL SCH (09:06)
[2016-08-16] MEDS: RisperiDONE 0.25mg tab ORAL SCH ×2 (09:06→18:06)
[2016-08-16] MEDS: Metoprolol 50mg tab ORAL SCH ×2 (09:07→21:22)
[2016-08-16] MEDS: Heparin 5000 units/ml inj SUBQ SCH ×2 (09:08→21:23)
--- NOTE | 2016-08-16 09:58 | Consultation ---
DATE OF CONSULTATION: 08/13/2016 NOTE: POOR AUDIO QUALITY CONSULTING PHYSICIAN: Paramjit Avery M.D. HISTORY OF PRESENT ILLNESS: This is an 80-year-old female patient, this patient was admitted to the hospital at [facility] for secondary to failure to thrive. She was admitted to [facility] on date of service 08/13/2016. The patient was seen at the bedside of [facility] transferred from halfway. She has been disorganized but then she is also ___ psychomotor agitation. PAST MEDICAL HISTORY: Failure to thrive, hypokalemia, hypertension, and ALLERGIES: No known drug allergies. PSYCHOTROPIC MEDICATIONS ON ADMISSION: The patient is on 2 mg daily, Ativan 1 mg q.6 h. p.r.n., but she does have some ___ agitation, poor cognition secondary to peripheral vascular . SOCIAL HISTORY: She lives at halfway. SUBSTANCE ABUSE HISTORY: No history of any drug or alcohol use. PSYCHIATRIC HISTORY: Paranoid schizophrenia, rule out dementia with psychosis. MENTAL STATUS EXAMINATION: This is an 80-year-old female, psychomotor agitation. Mood is depressed. Affect guarded and restricted. Thought process is disorganized and illogical. No suicidal ideations. Denies homicidal ideation. Insight and judgment are poor. DIAGNOSIS: Paranoid schizophrenia, rule out dementia with psychosis. PLAN: Continue to treat this patient and Risperdal 0.25 mg twice a day. Chart reviewed. Discussed with staff. Seen and assessed at bedside. I would like to thank Dr. Jong Jain, for this interesting consultation. Paramjit Avery M.D. DR: Jillian JOB#: [id number] CC:
--- NOTE | 2016-08-16 10:08 | Consultation ---
DATE OF CONSULTATION: 08/14/2016 NOTE: POOR AUDIO CONSULTING PHYSICIAN: Susy Montoya M.D. ATTENDING PHYSICIAN: Jong Jain M.D. REFERRING PHYSICIAN: Jong Jain M.D. HISTORY OF PRESENT ILLNESS: The patient is an 80-year-old female. The patient was admitted to the hospital for failure to thrive. The patient was found [facility]. The patient is very confused disorganized, altered . The patient also has a history of schizophrenia. mental status, lethargic, and tired. . PAST MEDICAL HISTORY: The patient's past medical history includes history of failure to thrive, hypertension, and bradycardia. ALLERGIES: The patient has no known drug allergies. SUBSTANCE ABUSE HISTORY: The patient alcohol use or illicit substance use. . 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 The patient has multiple inpatient psychiatric hospitalizations in the past. SOCIAL HISTORY: The patient is an 80-year-old single female [facility] . MENTAL STATUS EXAMINATION: The patient is oriented to person. Mood is depressed. Affect is blunted. Thought process is disorganized. The patient has poor attention and concentration. Fair insight. Poor judgment and poor impulse control. DIAGNOSES: AXIS I Paranoid schizophrenia. AXIS II Deferred. AXIS III Per History and Physical AXIS IV Psychosocial stressors. AXIS V PLAN: This clinician assessed the patient and provided the patient with supportive psychotherapy and reality orientation. Continue with medication management and behavioral management. This clinician has reviewed the patient's chart. Discussed the treatment with nursing staff. Susy Montoya PsyD. DR: Devin JOB#: [id number] CC:
[2016-08-16 12:14] VITALS: BP 126/74
--- NOTE | 2016-08-16 13:33 | General Progress Note ---
Assessment/Plan Problem List: (1) Bradycardia ICD Codes: R00.1 - Bradycardia, unspecified SNOMED: 86660552 (2) Renal insufficiency ICD Codes: N28.9 - Disorder of kidney and ureter, unspecified SNOMED: 504839008 (3) Encephalopathy ICD Codes: G93.40 - Encephalopathy, unspecified SNOMED: 72270600, 736194688 (4) HTN (hypertension) ICD Codes: I10 - Essential (primary) hypertension SNOMED: 04768817 (5) Schizophrenia ICD Codes: F20.9 - Schizophrenia, unspecified SNOMED: 93709011 Qualifiers: Qualified Codes: F20.9 - Schizophrenia, unspecified Status: stable, progressing, tolerating diet Assessment/Plan ot pt diet cardio neph psyc f/u psyc transfer Subjective Constitutional: Reports: weakness Allergies: Coded Allergies: No Known Allergies (Unverified , 08/13/16) All Systems: reviewed and negative except above Subjective sleepy anxious confused Objective Last 24 Hour Vital Signs Date Time Temp Pulse Resp B/P Pulse Ox O2 Delivery O2 Flow Rate FiO2 08/16/16 12:14 98.5 78 20 126/74 95 Room Air 08/16/16 09:07 63 131/65 08/16/16 09:07 63 131/65 08/16/16 08:06 98.0 63 20 131/65 93 Room Air 08/16/16 04:00 97.5 57 21 163/86 97 Room Air 08/16/16 00:40 97.2 69 16 148/79 96 Room Air 08/15/16 21:17 55 137/67 08/15/16 20:08 97.2 55 18 137/67 96 Room Air 08/15/16 16:15 97.3 64 18 134/78 96 Room Air Intake and Output 08/15/16 08/16/16 19:00 07:00 Intake Total 1100 ml 1490 ml Balance 1100 ml 1490 ml Intake Oral 1100 ml 440 ml IV Total 1050 ml # Voids 2 3 Laboratory Tests 08/16/16 05:10: White Blood Count 5.2, Red Blood Count 4.52, Hemoglobin 12.8, Hematocrit 40.5, Mean Corpuscular Volume 90, Mean Corpuscular Hemoglobin 28.3, Mean Corpuscular Hemoglobin Concent 31.6L, Red Cell Distribution Width 13.8, Platelet Count 180, Mean Platelet Volume 9.6, Neutrophils (%) (Auto) 48.5, Lymphocytes (%) (Auto) 38.9, Monocytes (%) (Auto) 7.1, Eosinophils (%) (Auto) 4.5H, Basophils (%) (Auto ) 0.9, Sodium Level 141, Potassium Level 4.0, Chloride Level 101, Carbon Dioxide Level 30, Anion Gap 10, Blood Urea Nitrogen 20, Creatinine 1.4H, Estimat Glomerular Filtration Rate , Glucose Level 85, Calcium Level 8.8, Iron Level 82, Total Iron Binding Capacity 251, Percent Iron Saturation 33, Unsaturated Iron Binding 169, Total Bilirubin 0.3, Aspartate Amino Transf (AST/ SGOT) 18, Alanine Aminotransferase (ALT/SGPT) 6, Alkaline Phosphatase 74, Total Protein 6.6, Albumin 3.1L, Globulin 3.5, Albumin/Globulin Ratio 0.8L, Amylase Level 48, Lipase 73H, Carcinoembryonic Antigen 1.8, Vitamin B12 Level 268, Vitamin D 25-Hydroxy [Pending], 25-Hydroxy Vitamin D2 [Pending], 25-Hydroxy Vitamin D3 [Pending], Folate [Pending] Height (Feet): 5 Height (Inches): 0.00 Weight (Pounds): 100 General Appearance: lethargic, confused EENT: normal ENT inspection Neck: normal alignment Cardiovascular: normal peripheral pulses, normal rate, regular rhythm Respiratory/Chest: chest wall non-tender, lungs clear, normal breath sounds Abdomen: normal bowel sounds, non tender, soft Extremities: normal inspection Edema: no edema noted Arm (L), no edema noted Arm (R), no edema noted Leg (L), no edema noted Leg (R), no edema noted Pedal (L), no edema noted Pedal (R), no edema noted Generalized Neurologic: motor weakness Skin: normal pigmentation, warm/dry RAIZA PATINO Aug 16, 2016 13:33
--- NOTE | 2016-08-16 15:50 | Pulmonology Progress Note ---
Assessment/Plan Problems: (1) ATN (acute tubular necrosis) (2) Encephalopathy (3) Failure to thrive (4) Schizophrenia Assessment/Plan improving f/u psych recommendation renal function improving dc planning Subjective ROS Limited/Unobtainable: No Interval Events: talkative, hallucinating Allergies: Coded Allergies: No Known Allergies (Unverified , 08/13/16) Objective Last 24 Hour Vital Signs Date Time Temp Pulse Resp B/P Pulse Ox O2 Delivery O2 Flow Rate FiO2 08/16/16 12:14 98.5 78 20 126/74 95 Room Air 08/16/16 09:07 63 131/65 08/16/16 09:07 63 131/65 08/16/16 08:06 98.0 63 20 131/65 93 Room Air 08/16/16 04:00 97.5 57 21 163/86 97 Room Air 08/16/16 00:40 97.2 69 16 148/79 96 Room Air 08/15/16 21:17 55 137/67 08/15/16 20:08 97.2 55 18 137/67 96 Room Air 08/15/16 16:15 97.3 64 18 134/78 96 Room Air Intake and Output 08/15/16 08/16/16 19:00 07:00 Intake Total 1100 ml 1490 ml Balance 1100 ml 1490 ml Intake Oral 1100 ml 440 ml IV Total 1050 ml # Voids 2 3 General Appearance: WD/WN HEENT: normocephalic Respiratory/Chest: chest wall non-tender, normal breath sounds Cardiovascular: normal peripheral pulses, regular rhythm Abdomen: normal bowel sounds, soft, non tender Extremities: no clubbing Skin: no rash, no lesions Laboratory Tests 08/16/16 05:10: White Blood Count 5.2, Red Blood Count 4.52, Hemoglobin 12.8, Hematocrit 40.5, Mean Corpuscular Volume 90, Mean Corpuscular Hemoglobin 28.3, Mean Corpuscular Hemoglobin Concent 31.6L, Red Cell Distribution Width 13.8, Platelet Count 180, Mean Platelet Volume 9.6, Neutrophils (%) (Auto) 48.5, Lymphocytes (%) (Auto) 38.9, Monocytes (%) (Auto) 7.1, Eosinophils (%) (Auto) 4.5H, Basophils (%) (Auto ) 0.9, Sodium Level 141, Potassium Level 4.0, Chloride Level 101, Carbon Dioxide Level 30, Anion Gap 10, Blood Urea Nitrogen 20, Creatinine 1.4H, Estimat Glomerular Filtration Rate , Glucose Level 85, Calcium Level 8.8, Iron Level 82, Total Iron Binding Capacity 251, Percent Iron Saturation 33, Unsaturated Iron Binding 169, Total Bilirubin 0.3, Aspartate Amino Transf (AST/ SGOT) 18, Alanine Aminotransferase (ALT/SGPT) 6, Alkaline Phosphatase 74, Total Protein 6.6, Albumin 3.1L, Globulin 3.5, Albumin/Globulin Ratio 0.8L, Amylase Level 48, Lipase 73H, Carcinoembryonic Antigen 1.8, Vitamin B12 Level 268, Vitamin D 25-Hydroxy [Pending], 25-Hydroxy Vitamin D2 [Pending], 25-Hydroxy Vitamin D3 [Pending], Folate [Pending] Current Medications Medications (Trade) Dose Ordered Sig/Brenda Route PRN Reason Start Time Stop Time Status Last Admin Dose Admin Acetaminophen (Tylenol) 650 mg Q4H PRN ORAL T>100.5 08/13/16 17:45 09/12/16 17:44 Al Hydroxide/Mg Hydroxide (Mylanta II) 30 ml Q6H PRN ORAL dyspepsia 08/13/16 17:45 09/12/16 17:44 Amlodipine Besylate (Norvasc) 10 mg DAILY ORAL 08/14/16 09:00 09/13/16 08:59 08/16/16 09:07 Dextrose (Dextrose 50%) STAT PRN IV Hypoglycemia 08/13/16 17:45 09/12/16 17:44 Donepezil HCl (Aricept) 10 mg DAILY ORAL 08/14/16 09:00 09/13/16 08:59 08/16/16 09:06 Heparin Sodium (Porcine) (Heparin 5000 units/ml) 5,000 units EVERY 12 HOURS SUBQ 08/13/16 21:00 09/12/16 20:59 08/16/16 09:08 Lorazepam (Ativan 2mg/ml 1ml) 0.5 mg Q4H PRN IV For Anxiety 08/14/16 13:33 08/20/16 17:44 08/16/16 04:24 Lorazepam (Ativan) 1 mg Q6H PRN ORAL For Anxiety 08/14/16 13:15 08/21/16 13:14 Metoprolol Tartrate (Lopressor) 50 mg EVERY 12 HOURS ORAL 08/13/16 21:00 09/12/16 20:59 08/16/16 09:07 Morphine Sulfate (Morphine Sulfate) 1 mg Q4H PRN IVP Severe Pain (Pain Scale 7-10) 08/13/16 17:45 08/20/16 17:44 Ondansetron HCl (Zofran) 4 mg Q6H PRN IVP Nausea & Vomiting 08/13/16 17:45 09/12/16 17:44 Polyethylene Glycol (Miralax) 17 gm HSPRN PRN ORAL Constipation 08/13/16 17:45 09/12/16 17:44 Risperidone (RisperDAL) 0.25 mg BID ORAL 08/14/16 18:00 09/13/16 17:59 08/16/16 09:06 Sodium Chloride (Sodium Chloride 1000ml bag) 1,000 ml @ 150 mls/hr Q6H40M IV 08/13/16 14:30 09/12/16 14:29 08/16/16 09:10 Zolpidem Tartrate (Ambien) 5 mg HSPRN PRN ORAL Insomnia 08/13/16 17:45 09/12/16 17:44 JUSTUS DE LA ROSA Aug 16, 2016 15:50
[2016-08-16 16:00] VITALS: BP 132/63
--- NOTE | 2016-08-16 16:44 | GI Progress Note ---
Assessment/Plan Problems: (1) Schizophrenia ICD Codes: F20.9 - Schizophrenia, unspecified SNOMED: 22579558 Qualifiers: Qualified Codes: F20.9 - Schizophrenia, unspecified (2) Failure to thrive SNOMED: 65073314 Qualifiers: Qualified Codes: R62.7 - Adult failure to thrive (3) Encephalopathy ICD Codes: G93.40 - Encephalopathy, unspecified SNOMED: 79566140, 733469167 (4) Bradycardia ICD Codes: R00.1 - Bradycardia, unspecified SNOMED: 29523920 (5) Severe malnutrition ICD Codes: E43 - Unspecified severe protein-calorie malnutrition SNOMED: 96901157 Status: stable, unchanged Status Narrative Discussed with Dr. Gavin. Assessment/Plan pt has pacemaker elevated lipase ok for DC per GI standpoint defer any GI procedures at this time tolerating diet fu labs Subjective Gastrointestinal/Abdominal: Reports: no symptoms Objective Last 24 Hour Vital Signs Date Time Temp Pulse Resp B/P Pulse Ox O2 Delivery O2 Flow Rate FiO2 08/16/16 12:14 98.5 78 20 126/74 95 Room Air 08/16/16 09:07 63 131/65 08/16/16 09:07 63 131/65 08/16/16 08:06 98.0 63 20 131/65 93 Room Air 08/16/16 04:00 97.5 57 21 163/86 97 Room Air 08/16/16 00:40 97.2 69 16 148/79 96 Room Air 08/15/16 21:17 55 137/67 08/15/16 20:08 97.2 55 18 137/67 96 Room Air Intake and Output 08/15/16 08/16/16 19:00 07:00 Intake Total 1100 ml 1490 ml Balance 1100 ml 1490 ml Intake Oral 1100 ml 440 ml IV Total 1050 ml # Voids 2 3 Laboratory Tests Test 08/16/16 05:10 White Blood Count 5.2 K/UL (4.8-10.8) Red Blood Count 4.52 M/UL (4.20-5.40) Hemoglobin 12.8 G/DL (12.0-16.0) Hematocrit 40.5 % (37.0-47.0) Mean Corpuscular Volume 90 FL (80-99) Mean Corpuscular Hemoglobin 28.3 PG (27.0-31.0) Mean Corpuscular Hemoglobin Concent 31.6 G/DL (32.0-36.0) L Red Cell Distribution Width 13.8 % (11.6-14.8) Platelet Count 180 K/UL (150-450) Mean Platelet Volume 9.6 FL (6.5-10.1) Neutrophils (%) (Auto) 48.5 % (45.0-75.0) Lymphocytes (%) (Auto) 38.9 % (20.0-45.0) Monocytes (%) (Auto) 7.1 % (1.0-10.0) Eosinophils (%) (Auto) 4.5 % (0.0-3.0) H Basophils (%) (Auto) 0.9 % (0.0-2.0) Sodium Level 141 mEQ/L (135-145) Potassium Level 4.0 mEQ/L (3.4-4.9) Chloride Level 101 mEQ/L (98-107) Carbon Dioxide Level 30 mEQ/L (20-30) Anion Gap 10 (5-15) Blood Urea Nitrogen 20 mg/dL (7-23) Creatinine 1.4 mg/dL (0.5-0.9) H Estimat Glomerular Filtration Rate mL/min (>60) Glucose Level 85 mg/dL (74-106) Calcium Level 8.8 mg/dL (8.6-10.2) Iron Level 82 ug/dL (37-145) Total Iron Binding Capacity 251 ug/dL (250-400) Percent Iron Saturation 33 % (15-50) Unsaturated Iron Binding 169 ug/dL (112-346) Total Bilirubin 0.3 mg/dL (0.0-1.2) Aspartate Amino Transf (AST/SGOT) 18 U/L (5-40) Alanine Aminotransferase (ALT/SGPT) 6 U/L (3-33) Alkaline Phosphatase 74 U/L (35-104) Total Protein 6.6 g/dL (6.6-8.7) Albumin 3.1 g/dL (3.5-5.2) L Globulin 3.5 g/dL Albumin/Globulin Ratio 0.8 (1.0-2.7) L Amylase Level 48 U/L (10-110) Lipase 73 U/L (< 60) H Carcinoembryonic Antigen 1.8 ng/mL Vitamin B12 Level 268 pg/mL (211-946) Vitamin D 25-Hydroxy Pending 25-Hydroxy Vitamin D2 Pending 25-Hydroxy Vitamin D3 Pending Folate Pending Height (Feet): 5 Height (Inches): 0.00 Weight (Pounds): 100 General Appearance: no apparent distress, alert, thin Cardiovascular: normal rate Respiratory/Chest: normal breath sounds, no respiratory distress Abdominal Exam: normal bowel sounds, non tender, soft Ashlyn Sauceda N.P. Aug 16, 2016 16:44
--- NOTE | 2016-08-16 19:58 | Cardiology Progress Note ---
Assessment/Plan Assessment/Plan The patient is seen and examined, full consult note is dictated. Objective Last 24 Hour Vital Signs Date Time Temp Pulse Resp B/P Pulse Ox O2 Delivery O2 Flow Rate FiO2 08/16/16 16:00 97.5 60 17 132/63 94 Room Air 08/16/16 12:14 98.5 78 20 126/74 95 Room Air 08/16/16 09:07 63 131/65 08/16/16 09:07 63 131/65 08/16/16 08:06 98.0 63 20 131/65 93 Room Air 08/16/16 04:00 97.5 57 21 163/86 97 Room Air 08/16/16 00:40 97.2 69 16 148/79 96 Room Air 08/15/16 21:17 55 137/67 08/15/16 20:08 97.2 55 18 137/67 96 Room Air Intake and Output 08/15/16 08/16/16 19:00 07:00 Intake Total 1100 ml 1490 ml Balance 1100 ml 1490 ml Intake Oral 1100 ml 440 ml IV Total 1050 ml # Voids 2 3 Laboratory Tests Test 08/16/16 05:10 White Blood Count 5.2 K/UL (4.8-10.8) Red Blood Count 4.52 M/UL (4.20-5.40) Hemoglobin 12.8 G/DL (12.0-16.0) Hematocrit 40.5 % (37.0-47.0) Mean Corpuscular Volume 90 FL (80-99) Mean Corpuscular Hemoglobin 28.3 PG (27.0-31.0) Mean Corpuscular Hemoglobin Concent 31.6 G/DL (32.0-36.0) L Red Cell Distribution Width 13.8 % (11.6-14.8) Platelet Count 180 K/UL (150-450) Mean Platelet Volume 9.6 FL (6.5-10.1) Neutrophils (%) (Auto) 48.5 % (45.0-75.0) Lymphocytes (%) (Auto) 38.9 % (20.0-45.0) Monocytes (%) (Auto) 7.1 % (1.0-10.0) Eosinophils (%) (Auto) 4.5 % (0.0-3.0) H Basophils (%) (Auto) 0.9 % (0.0-2.0) Sodium Level 141 mEQ/L (135-145) Potassium Level 4.0 mEQ/L (3.4-4.9) Chloride Level 101 mEQ/L (98-107) Carbon Dioxide Level 30 mEQ/L (20-30) Anion Gap 10 (5-15) Blood Urea Nitrogen 20 mg/dL (7-23) Creatinine 1.4 mg/dL (0.5-0.9) H Estimat Glomerular Filtration Rate mL/min (>60) Glucose Level 85 mg/dL (74-106) Calcium Level 8.8 mg/dL (8.6-10.2) Iron Level 82 ug/dL (37-145) Total Iron Binding Capacity 251 ug/dL (250-400) Percent Iron Saturation 33 % (15-50) Unsaturated Iron Binding 169 ug/dL (112-346) Total Bilirubin 0.3 mg/dL (0.0-1.2) Aspartate Amino Transf (AST/SGOT) 18 U/L (5-40) Alanine Aminotransferase (ALT/SGPT) 6 U/L (3-33) Alkaline Phosphatase 74 U/L (35-104) Total Protein 6.6 g/dL (6.6-8.7) Albumin 3.1 g/dL (3.5-5.2) L Globulin 3.5 g/dL Albumin/Globulin Ratio 0.8 (1.0-2.7) L Amylase Level 48 U/L (10-110) Lipase 73 U/L (< 60) H Carcinoembryonic Antigen 1.8 ng/mL Vitamin B12 Level 268 pg/mL (211-946) Vitamin D 25-Hydroxy Pending 25-Hydroxy Vitamin D2 Pending 25-Hydroxy Vitamin D3 Pending Folate Pending ERA CHEUNG Aug 16, 2016 19:58
[2016-08-16 20:00] VITALS: BP 141/88
--- NOTE | 2016-08-16 20:28 | Progress Note ---
DATE: 08/15/2016 NOTE: "POOR AUDIO QUALITY" PSYCHIATRIC CONSULTATION PROGRESS NOTE TREATING ATTENDING: Jong Jain D.O. SUBJECTIVE: The patient is an 80-year-old female who has been confused and altered in her mental status worsening of mood and affect. the patient's symptoms. The patient the patient provide the patient the patient's symptoms. . Continue with medication management and behavioral management. This clinician had reviewed the patient's chart and discussed the treatment with nursing staff. Susy Montoya PsyD. DR: AZRA JOB#: [id number] CC:
--- NOTE | 2016-08-16 23:38 | Consultation ---
DATE OF CONSULTATION: 08/16/2016 CARDIOLOGY CONSULTATION REFERRING PHYSICIAN: Jong Jain D.O. REASON FOR CONSULTATION: Management of bradycardia. HISTORY OF PRESENT ILLNESS: The patient is very unfortunate 80-year-old female who is brought from [facility] facility for evaluation of failure to thrive. Apparently, she has not been eating complaining of mild headache and developed renal failure and was brought in for further evaluation and management. On arrival to the hospital, blood pressure was 100/60 mmHg. A 12-lead electrocardiogram in the emergency department showed profound bradycardia with heart rate as low as 46. The patient was admitted to medical surgery unit for further evaluation and management. Cardiology consultation was made at request of Dr. Jain for assessment of management of the bradycardia. PAST MEDICAL HISTORY: Nonthrombocytopenic purpura and history of chronic kidney disease, history of schizophrenia, history of dementia, and history of hypertension. MEDICATIONS: In the nursing facility includes acetaminophen 600 mg q.6 hours p.r.n. for headache of temperature 101, amlodipine 10 mg p.o. daily, clonidine 0.1 mg q.4 hours, Colace 100 mg twice daily, Aricept 10 mg p.o. daily, milk of magnesia 30 mL p.o. daily, metoprolol 50 mg p.o. twice daily, and multivitamin p.o. daily. SOCIAL HISTORY: No history of tobacco, alcohol, or illicit drug use. PAST SURGICAL HISTORY: None. FAMILY HISTORY: No premature coronary artery disease in the first-degree relatives according to the records. ALLERGIES: No known drug allergies. REVIEW OF SYSTEMS: The patient is demented and 12-system review cannot be obtained in detail. She is currently complaining of not being able to sleep. She is demanding coffee as well as her white pill. It appears that she is in coherent and that does not make sense at times. PHYSICAL EXAMINATION: VITAL SIGNS: Currently, blood pressure is 132/63, heart rate was as low as 57 as well as 78, respiration of 17, and O2 saturation 94% on room air. GENERAL: The patient is a very unfortunate 80-year-old female appears to be frail, not quite making sense with her comments, appears to be incoherent. HEENT: Atraumatic and normocephalic. Anicteric. Pupils are equal, round, and accommodation. Extraocular muscles are intact. NECK: JVP is less than 5 cm. No carotid bruits. Carotid upstrokes 2+ bilaterally. CVS: Normal S1, S2. Regular rate and rhythm. Bradycardic. No murmurs, gallops, or rubs. LUNGS: Clear to auscultation bilaterally. ABDOMEN: Soft, nontender, and nondistended. No hepatosplenomegaly. Positive bowel sounds. EXTREMITIES: No evidence of edema, clubbing, or cyanosis. DIAGNOSTIC DATA: Chest x-ray shows no acute cardiopulmonary disease. A 12-lead electrocardiogram shows sinus bradycardia at rate of 49 with right bundle-branch block. LABORATORY FINDINGS: WBC 6.3, hemoglobin of 11.8, hematocrit 37.8, and platelet count is 271,000. Sodium was 141, potassium is 3.7, chloride is 95, bicarbonate 31, BUN of 47, creatinine 2.7, and glucose is 80. Calcium is 8.7. ProBNP was 929. Troponin I was less than 0.3. INR was 1.0. ASSESSMENT AND PLAN: The patient is a very unfortunate 80-year-old female who was seen in Cardiology consultation at request of Dr. Jain: 1. Profunda bradyarrhythmia. We will like to reduce the metoprolol dosage to 25 mg p.o. daily. We will obtain 12-lead electrocardiogram in the morning. It is extremely hard to obtain history from the patient and assessment of symptoms of bradycardia in this patient. We will like to obtain 2D echocardiography just about a systolic and diastolic function. 2. Acute kidney injury. The patient responded well to hydration. 3. History of hypertension. Currently, on amlodipine and metoprolol. 4. Dementia. I would like to thank, Dr. Jain for the courtesy of this consultation. Yariel Laughlin M.D. DR: KAROL JOB#: [id number] CC:
[2016-08-17] VITALS: BP 139/78
[2016-08-17 04:00] VITALS: BP 145/77
[2016-08-17 07:29] LABS: EOSINOPHILS % (AUTO) 4.3 % (0.0-3.0); LYMPHOCYTES % (AUTO) 33.2 % (20.0-45.0); MEAN CORPUSCULAR HEMOGLOBIN 28.5 PG (27.0-31.0); MEAN CORPUSCULAR HGB CONC 31.5 G/DL (32.0-36.0); MEAN CORPUSCULAR VOLUME 91 FL (80-99); MEAN PLATELET VOLUME 9.1 FL (6.5-10.1); MONOCYTES % (AUTO) 6.4 % (1.0-10.0); NEUTROPHILS % (AUTO) 55.2 % (45.0-75.0); PLATELET COUNT 182 K/UL (150-450); RED BLOOD COUNT 4.24 M/UL (4.20-5.40); RED CELL DISTRIBUTION WIDTH 13.6 % (11.6-14.8); WHITE BLOOD COUNT 4.9 K/UL (4.8-10.8)
[2016-08-17 07:33] LABS: ANION GAP 14 (5-15); CALCIUM 8.5 mg/dL (8.6-10.2); CARBON DIOXIDE 23 mEQ/L (20-30); CHLORIDE 105 mEQ/L (98-107); CREATININE 0.9 mg/dL (0.5-0.9); HEMOLYSIS 70; POTASSIUM 4.4 mEQ/L (3.4-4.9); SODIUM 142 mEQ/L (135-145)
[2016-08-17 08:00] VITALS: BP 132/80
[2016-08-17] MEDS: Metoprolol 50mg tab ORAL SCH ×3 (08:13→21:45)
[2016-08-17] MEDS: Donepezil 10mg tab ORAL SCH (08:13)
[2016-08-17] MEDS: RisperiDONE 0.25mg tab ORAL SCH ×2 (08:14→18:27)
[2016-08-17] MEDS: Heparin 5000 units/ml inj SUBQ SCH ×3 (08:18→21:45)
[2016-08-17 12:43] VITALS: BP 145/75
--- NOTE | 2016-08-17 12:58 | GI Progress Note ---
Assessment/Plan Problems: (1) Schizophrenia ICD Codes: F20.9 - Schizophrenia, unspecified SNOMED: 94325723 Qualifiers: Qualified Codes: F20.9 - Schizophrenia, unspecified (2) Failure to thrive SNOMED: 56518491 Qualifiers: Qualified Codes: R62.7 - Adult failure to thrive (3) Encephalopathy ICD Codes: G93.40 - Encephalopathy, unspecified SNOMED: 85201854, 826508691 (4) Bradycardia ICD Codes: R00.1 - Bradycardia, unspecified SNOMED: 23923786 (5) Severe malnutrition ICD Codes: E43 - Unspecified severe protein-calorie malnutrition SNOMED: 90440026 Status: stable Status Narrative Discussed with Dr. Gavin. Assessment/Plan pt has pacemaker elevated lipase ok for DC per GI standpoint defer any GI procedures at this time tolerating diet fu labs The patient was seen and examined at bedside and all new and available data was reviewed in the patients chart. I agree with the above findings, impression and plan. (Patient seen earlier today. Signature stamp does not reflect patient encounter time.). -Milad Gavin MD Subjective Gastrointestinal/Abdominal: Reports: no symptoms Subjective limited, confused. Objective Last 24 Hour Vital Signs Date Time Temp Pulse Resp B/P Pulse Ox O2 Delivery O2 Flow Rate FiO2 08/17/16 12:43 97.8 66 18 145/75 97 Room Air 08/17/16 08:13 67 132/80 08/17/16 08:13 67 132/80 08/17/16 08:00 97.5 67 18 132/80 98 Room Air 08/17/16 04:00 96.8 65 18 145/77 100 Room Air 08/17/16 00:00 96.8 70 18 139/78 97 Room Air 08/16/16 21:22 68 141/88 08/16/16 20:00 97.7 68 16 141/88 98 Room Air 08/16/16 16:00 97.5 60 17 132/63 94 Room Air Intake and Output 08/16/16 08/17/16 18:59 06:59 Intake Total 1500 ml 240 ml Balance 1500 ml 240 ml Intake Oral 600 ml 240 ml IV Total 900 ml # Voids 1 3 Laboratory Tests Test 08/17/16 05:20 White Blood Count 4.9 K/UL (4.8-10.8) Red Blood Count 4.24 M/UL (4.20-5.40) Hemoglobin 12.1 G/DL (12.0-16.0) Hematocrit 38.4 % (37.0-47.0) Mean Corpuscular Volume 91 FL (80-99) Mean Corpuscular Hemoglobin 28.5 PG (27.0-31.0) Mean Corpuscular Hemoglobin Concent 31.5 G/DL (32.0-36.0) L Red Cell Distribution Width 13.6 % (11.6-14.8) Platelet Count 182 K/UL (150-450) Mean Platelet Volume 9.1 FL (6.5-10.1) Neutrophils (%) (Auto) 55.2 % (45.0-75.0) Lymphocytes (%) (Auto) 33.2 % (20.0-45.0) Monocytes (%) (Auto) 6.4 % (1.0-10.0) Eosinophils (%) (Auto) 4.3 % (0.0-3.0) H Basophils (%) (Auto) 1.0 % (0.0-2.0) Sodium Level 142 mEQ/L (135-145) Potassium Level 4.4 mEQ/L (3.4-4.9) Chloride Level 105 mEQ/L (98-107) Carbon Dioxide Level 23 mEQ/L (20-30) Anion Gap 14 (5-15) Blood Urea Nitrogen 12 mg/dL (7-23) Creatinine 0.9 mg/dL (0.5-0.9) Estimat Glomerular Filtration Rate mL/min (>60) Glucose Level 95 mg/dL (74-106) Calcium Level 8.5 mg/dL (8.6-10.2) L Height (Feet): 5 Height (Inches): 0.00 Weight (Pounds): 100 General Appearance: no apparent distress, alert, thin Cardiovascular: normal rate Respiratory/Chest: normal breath sounds, no accessory muscle use Abdominal Exam: normal bowel sounds, non tender, soft Ashlyn Sauceda N.P. Aug 17, 2016 12:58 MILAD GAVIN Aug 20, 2016 08:01
--- NOTE | 2016-08-17 12:59 | Nephrology Progress Note ---
Assessment/Plan Assessment 1. Acute renal failure.resolved 2. Hypokalemia.resolved 3. Failure to thrive now pt has good appetite 4. Dehydration. Plan plan to continue ivf monitoring electrolyte avoid NSAID Continuing calori count Subjective ROS Limited/Unobtainable: Yes Constitutional: Reports: no symptoms HEENT: Reports: no symptoms Genitourinary: Reports: no symptoms Neurologic/Psychiatric: Reports: no symptoms Subjective alert and wake confused Objective Objective Last 24 Hour Vital Signs Date Time Temp Pulse Resp B/P Pulse Ox O2 Delivery O2 Flow Rate FiO2 08/17/16 12:43 97.8 66 18 145/75 97 Room Air 08/17/16 08:13 67 132/80 08/17/16 08:13 67 132/80 08/17/16 08:00 97.5 67 18 132/80 98 Room Air 08/17/16 04:00 96.8 65 18 145/77 100 Room Air 08/17/16 00:00 96.8 70 18 139/78 97 Room Air 08/16/16 21:22 68 141/88 08/16/16 20:00 97.7 68 16 141/88 98 Room Air 08/16/16 16:00 97.5 60 17 132/63 94 Room Air Intake and Output 08/16/16 08/17/16 18:59 06:59 Intake Total 1500 ml 240 ml Balance 1500 ml 240 ml Intake Oral 600 ml 240 ml IV Total 900 ml # Voids 1 3 Laboratory Tests 08/17/16 05:20: White Blood Count 4.9, Red Blood Count 4.24, Hemoglobin 12.1, Hematocrit 38.4, Mean Corpuscular Volume 91, Mean Corpuscular Hemoglobin 28.5, Mean Corpuscular Hemoglobin Concent 31.5L, Red Cell Distribution Width 13.6, Platelet Count 182, Mean Platelet Volume 9.1, Neutrophils (%) (Auto) 55.2, Lymphocytes (%) (Auto) 33.2, Monocytes (%) (Auto) 6.4, Eosinophils (%) (Auto) 4.3H, Basophils (%) (Auto ) 1.0, Sodium Level 142, Potassium Level 4.4, Chloride Level 105, Carbon Dioxide Level 23, Anion Gap 14, Blood Urea Nitrogen 12, Creatinine 0.9, Estimat Glomerular Filtration Rate , Glucose Level 95, Calcium Level 8.5L Height (Feet): 5 Height (Inches): 0.00 Weight (Pounds): 100 Objective HEAD AND NECK: No JVP. No LAD. Bitemporal wasting. Extraocular movement intact. Pupils are reactive to light and accommodation. LUNGS: Decreased breathing sound on the both sides. CARDIAC: Regular rate and rhythm. S1 and S2. No murmur or rub. ABDOMEN: Soft, nontender, and nondistended. EXTREMITIES: Trace edema. No clubbing. No cyanosis. CARLTON MAYO Aug 17, 2016 12:59
[2016-08-17] MEDS ORDERED: 1/2 NS 1000ml IV ONE (14:52)
--- NOTE | 2016-08-17 14:59 | General Progress Note ---
Assessment/Plan Problem List: (1) Bradycardia ICD Codes: R00.1 - Bradycardia, unspecified SNOMED: 23646674 (2) Renal insufficiency ICD Codes: N28.9 - Disorder of kidney and ureter, unspecified SNOMED: 040257555 (3) Encephalopathy ICD Codes: G93.40 - Encephalopathy, unspecified SNOMED: 70204823, 046028134 (4) HTN (hypertension) ICD Codes: I10 - Essential (primary) hypertension SNOMED: 59959395 (5) Schizophrenia ICD Codes: F20.9 - Schizophrenia, unspecified SNOMED: 82066052 Qualifiers: Qualified Codes: F20.9 - Schizophrenia, unspecified Assessment/Plan ot pt diet cardio neph psyc f/u psyc transfer Subjective Constitutional: Reports: weakness Allergies: Coded Allergies: No Known Allergies (Unverified , 08/13/16) All Systems: reviewed and negative except above Subjective sleepy anxious confused Objective Last 24 Hour Vital Signs Date Time Temp Pulse Resp B/P Pulse Ox O2 Delivery O2 Flow Rate FiO2 08/17/16 12:43 97.8 66 18 145/75 97 Room Air 08/17/16 08:13 67 132/80 08/17/16 08:13 67 132/80 08/17/16 08:00 97.5 67 18 132/80 98 Room Air 08/17/16 04:00 96.8 65 18 145/77 100 Room Air 08/17/16 00:00 96.8 70 18 139/78 97 Room Air 08/16/16 21:22 68 141/88 08/16/16 20:00 97.7 68 16 141/88 98 Room Air 08/16/16 16:00 97.5 60 17 132/63 94 Room Air Intake and Output 08/16/16 08/17/16 19:00 07:00 Intake Total 1350 ml 240 ml Balance 1350 ml 240 ml Intake Oral 600 ml 240 ml IV Total 750 ml # Voids 1 3 Laboratory Tests 08/17/16 05:20: White Blood Count 4.9, Red Blood Count 4.24, Hemoglobin 12.1, Hematocrit 38.4, Mean Corpuscular Volume 91, Mean Corpuscular Hemoglobin 28.5, Mean Corpuscular Hemoglobin Concent 31.5L, Red Cell Distribution Width 13.6, Platelet Count 182, Mean Platelet Volume 9.1, Neutrophils (%) (Auto) 55.2, Lymphocytes (%) (Auto) 33.2, Monocytes (%) (Auto) 6.4, Eosinophils (%) (Auto) 4.3H, Basophils (%) (Auto ) 1.0, Sodium Level 142, Potassium Level 4.4, Chloride Level 105, Carbon Dioxide Level 23, Anion Gap 14, Blood Urea Nitrogen 12, Creatinine 0.9, Estimat Glomerular Filtration Rate , Glucose Level 95, Calcium Level 8.5L Height (Feet): 5 Height (Inches): 0.00 Weight (Pounds): 100 General Appearance: lethargic EENT: normal ENT inspection Neck: normal alignment Cardiovascular: normal peripheral pulses, normal rate, regular rhythm Respiratory/Chest: chest wall non-tender, lungs clear, normal breath sounds Abdomen: normal bowel sounds, non tender, soft Extremities: normal inspection Edema: no edema noted Arm (L), no edema noted Arm (R), no edema noted Leg (L), no edema noted Leg (R), no edema noted Pedal (L), no edema noted Pedal (R), no edema noted Generalized Neurologic: motor weakness Skin: normal pigmentation, warm/dry RAIZA PATINO Aug 17, 2016 14:59
[2016-08-17 16:12] VITALS: BP 139/71
--- NOTE | 2016-08-17 22:08 | Progress Note ---
DATE: 08/16/2016 PSYCHOTHERAPY CONSULTATION PROGRESS NOTE TREATING ATTENDING PHYSICIAN: Jong Jain D.O. SUBJECTIVE: The patient is an 80-year-old female. The patient is confused, disorganized, and altered in her mental status. She has been making nonsensical statements, talking to herself, slightly anxious and irritable, believed that her are her family members. The patient has poor insight, poor judgment, and poor impulse control and at this time requires further hospitalization for stabilization of her symptoms. PLAN: This clinician assessed the patient, provided the patient with supportive psychotherapy, reality orientation, and coping skills, encouraging the patient to participate in treatment and milieu. Continue with medication management and behavioral management. This clinician had reviewed the patient's chart and discussed the treatment with nursing staff. Susy Montoya PsyD. DR: Tristan JOB#: [id number] CC:
--- NOTE | 2016-08-17 22:59 | Pulmonology Progress Note ---
Assessment/Plan Problems: (1) ATN (acute tubular necrosis) (2) Encephalopathy (3) Failure to thrive (4) Schizophrenia Assessment/Plan improving f/u psych recommendation renal function improving dc planning Subjective ROS Limited/Unobtainable: Yes Constitutional: Reports: anorexia, fatigue Neurologic: Reports: confusion, weakness Psychiatric: Reports: anxiety, depression Allergies: Coded Allergies: No Known Allergies (Unverified , 08/13/16) Objective Last 24 Hour Vital Signs Date Time Temp Pulse Resp B/P Pulse Ox O2 Delivery O2 Flow Rate FiO2 08/17/16 16:12 96.8 66 18 139/71 97 Room Air 08/17/16 12:43 97.8 66 18 145/75 97 Room Air 08/17/16 08:13 67 132/80 08/17/16 08:13 67 132/80 08/17/16 08:00 97.5 67 18 132/80 98 Room Air 08/17/16 04:00 96.8 65 18 145/77 100 Room Air 08/17/16 00:00 96.8 70 18 139/78 97 Room Air Intake and Output 08/16/16 08/17/16 19:00 07:00 Intake Total 1350 ml 240 ml Balance 1350 ml 240 ml Intake Oral 600 ml 240 ml IV Total 750 ml # Voids 1 3 General Appearance: no acute distress HEENT: normocephalic, atraumatic, PERRL Respiratory/Chest: chest wall non-tender, decreased breath sounds, accessory muscle use Breasts: no masses Cardiovascular: normal peripheral pulses, normal rate, regular rhythm, no JVD Abdomen: normal bowel sounds, soft, non tender, no organomegaly Genitourinary: normal external genitalia Extremities: no cyanosis Skin: no rash, no lesions Neurologic/Psychiatric: packer denture II-XII grossly normal, responsive, disoriented Laboratory Tests 08/17/16 05:20: White Blood Count 4.9, Red Blood Count 4.24, Hemoglobin 12.1, Hematocrit 38.4, Mean Corpuscular Volume 91, Mean Corpuscular Hemoglobin 28.5, Mean Corpuscular Hemoglobin Concent 31.5L, Red Cell Distribution Width 13.6, Platelet Count 182, Mean Platelet Volume 9.1, Neutrophils (%) (Auto) 55.2, Lymphocytes (%) (Auto) 33.2, Monocytes (%) (Auto) 6.4, Eosinophils (%) (Auto) 4.3H, Basophils (%) (Auto ) 1.0, Sodium Level 142, Potassium Level 4.4, Chloride Level 105, Carbon Dioxide Level 23, Anion Gap 14, Blood Urea Nitrogen 12, Creatinine 0.9, Estimat Glomerular Filtration Rate , Glucose Level 95, Calcium Level 8.5L Current Medications Medications (Trade) Dose Ordered Sig/Brenda Route PRN Reason Start Time Stop Time Status Last Admin Dose Admin Acetaminophen (Tylenol) 650 mg Q4H PRN ORAL T>100.5 08/13/16 17:45 09/12/16 17:44 Al Hydroxide/Mg Hydroxide (Mylanta II) 30 ml Q6H PRN ORAL dyspepsia 08/13/16 17:45 09/12/16 17:44 Amlodipine Besylate (Norvasc) 10 mg DAILY ORAL 08/14/16 09:00 09/13/16 08:59 08/17/16 08:13 Dextrose (Dextrose 50%) STAT PRN IV Hypoglycemia 08/13/16 17:45 09/12/16 17:44 Donepezil HCl (Aricept) 10 mg DAILY ORAL 08/14/16 09:00 09/13/16 08:59 08/17/16 08:13 Heparin Sodium (Porcine) (Heparin 5000 units/ml) 5,000 units EVERY 12 HOURS SUBQ 08/13/16 21:00 09/12/16 20:59 08/17/16 08:18 Lorazepam (Ativan 2mg/ml 1ml) 0.5 mg Q4H PRN IV For Anxiety 08/14/16 13:33 08/20/16 17:44 08/16/16 04:24 Lorazepam (Ativan) 1 mg Q6H PRN ORAL For Anxiety 08/14/16 13:15 08/21/16 13:14 Metoprolol Tartrate (Lopressor) 25 mg EVERY 12 HOURS ORAL 08/16/16 21:00 09/15/16 20:59 08/17/16 08:13 Morphine Sulfate (Morphine Sulfate) 1 mg Q4H PRN IVP Severe Pain (Pain Scale 7-10) 08/13/16 17:45 08/20/16 17:44 Ondansetron HCl (Zofran) 4 mg Q6H PRN IVP Nausea & Vomiting 08/13/16 17:45 09/12/16 17:44 Polyethylene Glycol (Miralax) 17 gm HSPRN PRN ORAL Constipation 08/13/16 17:45 09/12/16 17:44 Risperidone (RisperDAL) 0.25 mg BID ORAL 08/14/16 18:00 09/13/16 17:59 08/17/16 18:27 Sodium Chloride (Sodium Chloride 1000ml bag) 1,000 ml @ 150 mls/hr Q6H40M IV 08/13/16 14:30 09/12/16 14:29 08/17/16 18:28 Zolpidem Tartrate (Ambien) 5 mg HSPRN PRN ORAL Insomnia 08/13/16 17:45 09/12/16 17:44 JUSTUS DE LA ROSA Aug 17, 2016 22:59
[2016-08-18 04:00] VITALS: BP 142/82
[2016-08-18 07:32] LABS: BASOPHILS % (AUTO) 0.3 % (0.0-2.0); EOSINOPHILS % (AUTO) 1.8 % (0.0-3.0); LYMPHOCYTES % (AUTO) 31.6 % (20.0-45.0); MEAN CORPUSCULAR HEMOGLOBIN 29.1 PG (27.0-31.0); MEAN CORPUSCULAR HGB CONC 32.3 G/DL (32.0-36.0); MEAN CORPUSCULAR VOLUME 90 FL (80-99); MEAN PLATELET VOLUME 7.6 FL (6.5-10.1); MONOCYTES % (AUTO) 4.7 % (1.0-10.0); NEUTROPHILS % (AUTO) 61.7 % (45.0-75.0); PLATELET COUNT 175 K/UL (150-450); RED BLOOD COUNT 3.95 M/UL (4.20-5.40); WHITE BLOOD COUNT 5.7 K/UL (4.8-10.8)
[2016-08-18 08:00] VITALS: BP 118/72
[2016-08-18 08:00] LABS: ANION GAP 10 (5-15); CALCIUM 8.8 mg/dL (8.6-10.2); CARBON DIOXIDE 28 mEQ/L (20-30); CHLORIDE 104 mEQ/L (98-107); CREATININE 1.1 mg/dL (0.5-0.9); HEMOLYSIS 5; MAGNESIUM 1.6 mg/dL (1.7-2.5); POTASSIUM 4.4 mEQ/L (3.4-4.9); SODIUM 142 mEQ/L (135-145)
[2016-08-18] MEDS: Heparin 5000 units/ml inj SUBQ SCH (09:00)
[2016-08-18] MEDS: Metoprolol 50mg tab ORAL SCH (09:09)
[2016-08-18] MEDS: Donepezil 10mg tab ORAL SCH (09:09)
[2016-08-18] MEDS: RisperiDONE 0.25mg tab ORAL SCH (09:09)
[2016-08-18] MEDS: LORazepam Inj 2mg/ml 1ml IV PRN (10:46)
--- NOTE | 2016-08-18 11:14 | GI Progress Note ---
Assessment/Plan Problems: (1) Schizophrenia ICD Codes: F20.9 - Schizophrenia, unspecified SNOMED: 87422570 Qualifiers: Qualified Codes: F20.9 - Schizophrenia, unspecified (2) Failure to thrive SNOMED: 76462460 Qualifiers: Qualified Codes: R62.7 - Adult failure to thrive (3) Encephalopathy ICD Codes: G93.40 - Encephalopathy, unspecified SNOMED: 55083587, 709072849 (4) Bradycardia ICD Codes: R00.1 - Bradycardia, unspecified SNOMED: 20548838 (5) Severe malnutrition ICD Codes: E43 - Unspecified severe protein-calorie malnutrition SNOMED: 73704232 Status: stable Status Narrative Discussed with Dr. Gavin. Assessment/Plan pt has pacemaker elevated lipase ok for DC per GI standpoint defer any GI procedures at this time tolerating diet fu labs Subjective Subjective limited, confused. Objective Last 24 Hour Vital Signs Date Time Temp Pulse Resp B/P Pulse Ox O2 Delivery O2 Flow Rate FiO2 08/18/16 09:10 66 118/72 08/18/16 09:09 66 118/72 08/18/16 08:00 97.9 66 18 118/72 98 Room Air 08/18/16 04:00 97.7 77 18 142/82 98 Room Air 08/17/16 16:12 96.8 66 18 139/71 97 Room Air 08/17/16 12:43 97.8 66 18 145/75 97 Room Air Intake and Output 08/17/16 08/18/16 19:00 07:00 Intake Total 240 ml 1760 ml Balance 240 ml 1760 ml Intake Oral 240 ml 560 ml IV Total 1200 ml # Voids 3 Laboratory Tests Test 08/18/16 07:13 White Blood Count 5.7 K/UL (4.8-10.8) Red Blood Count 3.95 M/UL (4.20-5.40) L Hemoglobin 11.5 G/DL (12.0-16.0) L Hematocrit 35.5 % (37.0-47.0) L Mean Corpuscular Volume 90 FL (80-99) Mean Corpuscular Hemoglobin 29.1 PG (27.0-31.0) Mean Corpuscular Hemoglobin Concent 32.3 G/DL (32.0-36.0) Red Cell Distribution Width 14.0 % (11.6-14.8) Platelet Count 175 K/UL (150-450) Mean Platelet Volume 7.6 FL (6.5-10.1) Neutrophils (%) (Auto) 61.7 % (45.0-75.0) Lymphocytes (%) (Auto) 31.6 % (20.0-45.0) Monocytes (%) (Auto) 4.7 % (1.0-10.0) Eosinophils (%) (Auto) 1.8 % (0.0-3.0) Basophils (%) (Auto) 0.3 % (0.0-2.0) Sodium Level 142 mEQ/L (135-145) Potassium Level 4.4 mEQ/L (3.4-4.9) Chloride Level 104 mEQ/L (98-107) Carbon Dioxide Level 28 mEQ/L (20-30) Anion Gap 10 (5-15) Blood Urea Nitrogen 14 mg/dL (7-23) Creatinine 1.1 mg/dL (0.5-0.9) H Estimat Glomerular Filtration Rate mL/min (>60) Glucose Level 99 mg/dL (74-106) Calcium Level 8.8 mg/dL (8.6-10.2) Phosphorus Level 3.0 mg/dL (2.5-4.8) Magnesium Level 1.6 mg/dL (1.7-2.5) L Height (Feet): 5 Height (Inches): 0.00 Weight (Pounds): 100 General Appearance: no apparent distress, alert Cardiovascular: normal rate Respiratory/Chest: normal breath sounds, no respiratory distress Abdominal Exam: normal bowel sounds, non tender, soft Ashlyn Sauceda N.PEdna Aug 18, 2016 11:14
[2016-08-18 12:00] VITALS: BP 112/64
--- NOTE | 2016-08-18 12:44 | General Progress Note ---
Assessment/Plan Problem List: (1) Bradycardia ICD Codes: R00.1 - Bradycardia, unspecified SNOMED: 76551034 (2) Renal insufficiency ICD Codes: N28.9 - Disorder of kidney and ureter, unspecified SNOMED: 302965562 (3) Encephalopathy ICD Codes: G93.40 - Encephalopathy, unspecified SNOMED: 35747933, 178115171 (4) HTN (hypertension) ICD Codes: I10 - Essential (primary) hypertension SNOMED: 03875551 (5) Schizophrenia ICD Codes: F20.9 - Schizophrenia, unspecified SNOMED: 69089292 Qualifiers: Qualified Codes: F20.9 - Schizophrenia, unspecified Status: stable, progressing, tolerating diet Assessment/Plan ot pt diet cardio neph psyc f/u psyc transfer vs dc to snf Subjective Constitutional: Reports: weakness Allergies: Coded Allergies: No Known Allergies (Unverified , 08/13/16) All Systems: reviewed and negative except above Subjective sleepy anxious confused Objective Last 24 Hour Vital Signs Date Time Temp Pulse Resp B/P Pulse Ox O2 Delivery O2 Flow Rate FiO2 08/18/16 09:10 66 118/72 08/18/16 09:09 66 118/72 08/18/16 08:00 97.9 66 18 118/72 98 Room Air 08/18/16 04:00 97.7 77 18 142/82 98 Room Air 08/17/16 16:12 96.8 66 18 139/71 97 Room Air Intake and Output 08/17/16 08/18/16 19:00 07:00 Intake Total 240 ml 1760 ml Balance 240 ml 1760 ml Intake Oral 240 ml 560 ml IV Total 1200 ml # Voids 3 Laboratory Tests 08/18/16 07:13: White Blood Count 5.7, Red Blood Count 3.95L, Hemoglobin 11.5L, Hematocrit 35.5L , Mean Corpuscular Volume 90, Mean Corpuscular Hemoglobin 29.1, Mean Corpuscular Hemoglobin Concent 32.3, Red Cell Distribution Width 14.0, Platelet Count 175, Mean Platelet Volume 7.6, Neutrophils (%) (Auto) 61.7, Lymphocytes (% ) (Auto) 31.6, Monocytes (%) (Auto) 4.7, Eosinophils (%) (Auto) 1.8, Basophils ( %) (Auto) 0.3, Sodium Level 142, Potassium Level 4.4, Chloride Level 104, Carbon Dioxide Level 28, Anion Gap 10, Blood Urea Nitrogen 14, Creatinine 1.1H, Estimat Glomerular Filtration Rate , Glucose Level 99, Calcium Level 8.8, Phosphorus Level 3.0, Magnesium Level 1.6L Height (Feet): 5 Height (Inches): 0.00 Weight (Pounds): 100 General Appearance: lethargic EENT: normal ENT inspection Neck: normal alignment Cardiovascular: normal peripheral pulses, normal rate, regular rhythm Respiratory/Chest: chest wall non-tender, lungs clear, normal breath sounds Abdomen: normal bowel sounds, non tender, soft Extremities: normal inspection Edema: no edema noted Arm (L), no edema noted Arm (R), no edema noted Leg (L), no edema noted Leg (R), no edema noted Pedal (L), no edema noted Pedal (R), no edema noted Generalized Neurologic: motor weakness Skin: normal pigmentation, warm/dry RAIZA PATINO Aug 18, 2016 12:44
--- NOTE | 2016-08-18 15:28 | Cardiology Report ---
APPROVED REPORT EXAM: Two-dimensional and M-mode echocardiogram with Doppler and color Doppler. INDICATION Bradycardia M-Mode DIMENSIONS IVSd0.5 (0.7-1.1cm)Left Atrium (MM)3.0 (1.6-4.0cm) LVDd4.4 (3.5-5.6cm)Aortic Root2.6 (2.0-3.7cm) PWd0.7 (0.7-1.1cm)Aortic Cusp Exc.1.5 (1.5-2.0cm) IVSs0.7 cm LVDs2.7 (2.5-4.0cm) PWs0.9 cm Normal left ventricular chamber size, systolic function and wall motion. Left ventricular ejection fraction estimated to be 60-65%. No evidence of left ventricular hypertrophy. No evidence of pericardial fat or effusion. Right cardiac chamber sizes are within normal limits. Mild left atrial enlargement by 2D. Focal aortic valve sclerosis with adequate cusp excursion Thickened mitral valve leaflets with normal excursion. Mild mitral annulus and aortic root calcification. Pulmonic valve not well visualized. Normal tricuspid valve structure. IVC is normal in size with physiologic collapse. A color flow and spectral Doppler study was performed and revealed: No aortic regurgitation. Trace mitral regurgitation. Left ventricular diastolic dysfunction grade 1. Mild tricuspid regurgitation. Tricuspid systolic velocities suggests peak right ventricular systolic pressure of 30 mmHg
--- NOTE | 2016-08-18 15:51 | Cardiology Report ---
APPROVED REPORT EKG Measurement Heart [id number] DC 152P65 [id number] Normal sinus rhythm Incomplete right bundle branch block Borderline ECG
[2016-08-18 16:00] VITALS: BP 130/61
[2016-08-18] MEDS ORDERED: RISPERDAL1 MG/1 ML PO (16:49)
[2016-08-18] MEDS ORDERED: RISPERDAL0.25 MG ORAL ×2 (16:50→16:51)
[2016-08-18] MEDS ORDERED: RISPERIDONE0.25 MG PO (16:51)
[2016-08-18] MEDS ORDERED: LORAZEPAM1 MG ORAL (16:56)
--- NOTE | 2016-08-18 18:36 | Nephrology Progress Note ---
Assessment/Plan Assessment 1. Acute renal failure.resolved 2. Hypokalemia.resolved 3. Failure to thrive now pt has good appetite 4. Dehydration. 5.hypomagnesemia Plan plan to continue ivf monitoring electrolyte avoid NSAID replace mg Subjective Constitutional: Reports: no symptoms HEENT: Reports: no symptoms Genitourinary: Reports: no symptoms Neurologic/Psychiatric: Reports: no symptoms Subjective alert and wake confused Objective Objective Last 24 Hour Vital Signs Date Time Temp Pulse Resp B/P Pulse Ox O2 Delivery O2 Flow Rate FiO2 08/18/16 16:00 97.5 68 17 130/61 98 Room Air 08/18/16 12:00 97.9 72 18 112/64 98 Room Air 08/18/16 09:10 66 118/72 08/18/16 09:09 66 118/72 08/18/16 08:00 97.9 66 18 118/72 98 Room Air 08/18/16 04:00 97.7 77 18 142/82 98 Room Air Intake and Output 08/17/16 08/18/16 19:00 07:00 Intake Total 240 ml 1760 ml Balance 240 ml 1760 ml Intake Oral 240 ml 560 ml IV Total 1200 ml # Voids 3 Laboratory Tests 08/18/16 07:13: White Blood Count 5.7, Red Blood Count 3.95L, Hemoglobin 11.5L, Hematocrit 35.5L , Mean Corpuscular Volume 90, Mean Corpuscular Hemoglobin 29.1, Mean Corpuscular Hemoglobin Concent 32.3, Red Cell Distribution Width 14.0, Platelet Count 175, Mean Platelet Volume 7.6, Neutrophils (%) (Auto) 61.7, Lymphocytes (% ) (Auto) 31.6, Monocytes (%) (Auto) 4.7, Eosinophils (%) (Auto) 1.8, Basophils ( %) (Auto) 0.3, Sodium Level 142, Potassium Level 4.4, Chloride Level 104, Carbon Dioxide Level 28, Anion Gap 10, Blood Urea Nitrogen 14, Creatinine 1.1H, Estimat Glomerular Filtration Rate , Glucose Level 99, Calcium Level 8.8, Phosphorus Level 3.0, Magnesium Level 1.6L Height (Feet): 5 Height (Inches): 0.00 Weight (Pounds): 100 Objective HEAD AND NECK: No JVP. No LAD. Bitemporal wasting. Extraocular movement intact. Pupils are reactive to light and accommodation. LUNGS: Decreased breathing sound on the both sides. CARDIAC: Regular rate and rhythm. S1 and S2. No murmur or rub. ABDOMEN: Soft, nontender, and nondistended. EXTREMITIES: Trace edema. No clubbing. No cyanosis. CARLTON MAYO Aug 18, 2016 18:36
--- NOTE | 2016-08-18 22:08 | Progress Note ---
DATE: 08/17/2016 PSYCHOTHERAPY CONSULTATION PROGRESS NOTE TREATING ATTENDING PHYSICIAN: Jong aJin D.O. SUBJECTIVE: The patient is an 80-year-old female. The patient has anxiety disorder, confused, and altered in her mental status. She has ongoing diagnosis of paranoid schizophrenia. The patient denies suicidal or homicidal thoughts or ideation. She is very tangential and disorganized. This clinician assessed this patient, provided the patient with supportive psychotherapy, reality orientation, and coping skills to manage the patient's disorganized thought process. Continue with medication management and behavioral management. This clinician has reviewed the patient's chart. Discussed the treatment with nursing staff. Susy Montoya PsyD. DR: AZRA JOB#: [id number] CC:
[2016-08-19 12:15] LABS: VITAMIN D 25-OH TOTAL 11 ng/mL (.)
--- NOTE | 2016-08-19 20:23 | Discharge Summary ---
Discharge Summary Hospital Course Date of Admission Aug 13, 2016 at 15:30 Date of Discharge Aug 18, 2016 at 17:15 Admitting Diagnosis FAILURE TO THRIVE AZAM Hoff is a 80 year old female who was admitted on Aug 13, 2016 at 15:30 for Failure To Thrive Hospital Course [id number] Discharge Discharge Disposition Patient was discharged to SNF/Subacute Facility(03) Discharge Diagnoses: Jane Zhang NP Aug 19, 2016 20:23
--- NOTE | 2016-08-20 01:48 | Discharge Summary 2 SIG ---
DATE OF ADMISSION: 08/13/2016 DATE OF DISCHARGE: 08/18/2016 CONSULTANTS: 1. Susy Montoya M.D. 2. Luanne Gastelum M.D. 3. Milad Gavin M.D. 4. Yariel Laughlin M.D. 5. Paramjit Avery M.D. 6. Lolita Knight M.D. BRIEF HOSPITAL COURSE: The patient is an 80-year-old female was brought to ED for failure to thrive at the [facility]. She was not eating at the SNF. On evaluation at ED, EKG showed bradycardia and labs showed evidence of acute renal failure and dehydration. Dr. Gastelum was consulted. The patient was given potassium supplements and IV hydration. Acute renal failure resolved. Dr. Gavin was consulted for evaluation of failure to thrive. Albumin was 3.6, and has been tolerating diet well. Deferred any GI procedures. Dr. Laughlin was consulted for evaluation of bradycardia. Metoprolol dosage was reduced. Echocardiogram done showed ejection fraction of 60% to 65% with normal left ventricular size, function, and wall motion. She was seen by Psychiatry and was diagnosed with paranoid schizophrenia and was given Risperdal. Renal ultrasound showed no hydronephrosis. Renal function improved. The patient was eventually discharged back to [facility]. FINAL DIAGNOSES: 1. Bradycardia. 2. Acute kidney injury. 3. Paranoid schizophrenia. 4. Hypertension. 5. Acute metabolic encephalopathy. 6. Hypokalemia. 7. Dehydration. 8. Hypomagnesemia. 9. Severe protein-calorie malnutrition. Jong Jain D.O. I have been assigned to dictate discharge summary on this account and I was not involved in the patient's management. Jane Zhang N.P. DR: PRIYA JOB#: [id number] CC: SOFI
--- NOTE | 2016-08-26 20:28 | Progress Note ---
DATE: 08/17/2016 The patient is an 80-year-old female patient with failure to thrive. I will continue treatment with psychotropic medications to prevent any further decline in her cognition. Chart reviewed and discussed with staff. Seen and assessed at bedside. Paramjit Avery M.D. DR: PHUONG JOB#: [id number] CC:
--- NOTE | 2016-08-26 20:48 | Progress Note ---
DATE: 08/18/2016 SUBJECTIVE: The patient is an 80-year-old female patient with failure to thrive. PLAN: I am going to continue treatment with psychotropic medications to prevent any further decline in her cognition. Chart reviewed. Discussed with staff. Seen and assessed at bedside. Paramjit Avery M.D. DR: RONA JOB#: [id number] CC:
--- NOTE | 2016-08-26 21:18 | Consultation ---
DATE OF CONSULTATION: HISTORY OF PRESENT ILLNESS: The patient is an 80-year-old female with failure to thrive. She is confused and disorganized. Poor cognition secondary to to the progression of her symptoms. I will continue treatment with psychotropic medications to stabilize her mood. Chart reviewed and discussed with staff. Seen and assessed at the bedside at [facility]. Paramjit Avery M.D. DR: Mendy JOB#: [id number] CC:
--- NOTE | 2016-08-31 14:12 | Cardiology Report ---
APPROVED REPORT EKG Measurement Heart [id number] NM 152P47 [id number] Sinus bradycardia Incomplete right bundle branch block Borderline ECG
== END 2016-08-18 17:15 | DRG 682 ==
LOC: EDBD 14:51 → EMR 15:15 → 4W 15:30 → EDBEDREQ 08-14 00:21 → 4W 08-14 10:30 → 3E 08-15 14:00
DX: N17.0 Acute kidney failure with tubular necrosis (principal); E43 Unspecified severe protein-calorie malnutrition; R00.1 Bradycardia, unspecified; D64.9 Anemia, unspecified; E86.0 Dehydration; F20.0 Paranoid schizophrenia; Z68.1 Body mass index [BMI] 19.9 or less, adult; I10 Essential (primary) hypertension; E87.6 Hypokalemia; R62.7 Adult failure to thrive; E83.42 Hypomagnesemia
CPT/HCPCS: 36415; 71010; 76775; 80048; 80053; 80061; 81003; 82150; 82306; 82378; 82436; 82533; 82550; 82607; 82746; 83036; 83540; 83550; 83690; 83735; 83880; 83930; 83935; 84100; 84133; 84134; 84300; 84439; 84443; 84481; 84484; 84550; 85025; 85610; 85730; 87081; 89050; 93005; 93306; 97803; J8499

== ENCOUNTER 2017-03-01 10:50 | Inpatient (IN) | payer MEDICARE, MEDICAID ==
[~2017-03-01] VITALS: Ht 152.4 cm; Wt 45.4 kg
[~2017-03-01 10:50] MED LIST changes: +LORAZEPAM1 MG ORAL; +RISPERDAL0.25 MG ORAL; +RISPERDAL1 MG/1 ML PO; +RISPERIDONE0.25 MG PO
[2017-03-01] MEDS ORDERED: ATIVAN0.5 MG ORAL (10:57)
[2017-03-01] MEDS ORDERED: FERROUS SULFAT325 MG ORAL (10:59)
[2017-03-01] MEDS ORDERED: METOPROLOL TART25 MG ORAL (10:59)
[2017-03-01] MEDS ORDERED: MILK OF MA400 MG/51 ORAL (10:59)
[2017-03-01] MEDS ORDERED: ACETAMINOPHEN325 M1 ORAL (11:01)
[2017-03-01] MEDS ORDERED: VITAMIN C500 M1 ORAL (11:01)
[2017-03-01] MEDS ORDERED: ZINC SULFATE220 M1 ORAL (11:01)
[2017-03-01 11:12] VITALS: BP 151/79
[2017-03-01] MEDS ORDERED: Morphine Sulfate 2mg/ml Inj IVP ONE (11:15)
[2017-03-01 11:31] LABS: MEAN CORPUSCULAR HEMOGLOBIN 28.8 PG (27.0-31.0); MEAN CORPUSCULAR HGB CONC 31.1 G/DL (32.0-36.0); MEAN CORPUSCULAR VOLUME 93 FL (80-99); MEAN PLATELET VOLUME 6.6 FL (6.5-10.1); PLATELET COUNT 272 K/UL (150-450); RED BLOOD COUNT 4.12 M/UL (4.20-5.40); RED CELL DISTRIBUTION WIDTH 12.8 % (11.6-14.8); WHITE BLOOD COUNT 14.3 K/UL (4.8-10.8)
[2017-03-01 11:39] LABS: PROTHROMBIN TIME 10.4 SEC (9.30-11.50)
[2017-03-01 11:44] LABS: ALANINE AMINOTRANSFERASE 6 U/L (3-33); ALBUMIN/GLOBULIN RATIO 1.1 (1.0-2.7); ANION GAP 15 (5-15); ASPARTATE AMINO TRANSFERASE 20 U/L (5-40); CALCIUM 8.7 mg/dL (8.6-10.2); CARBON DIOXIDE 27 mEQ/L (20-30); CHLORIDE 97 mEQ/L (98-107); CREATININE 1.1 mg/dL (0.5-0.9); HEMOLYSIS 2; POTASSIUM 4.3 mEQ/L (3.4-4.9); SODIUM 139 mEQ/L (135-145)
[2017-03-01 12:04] LABS: BAND NEUTROPHILS % (MANUAL) 2 % (0-8); BASOPHILS % (MANUAL) 0 % (0-2); EOSINOPHILS % (MANUAL) 0 % (0-3); LYMPHOCYTES % (MANUAL) 4 % (20-45); NEUTROPHILS % (MANUAL) 91 % (45-75); PLATELET ESTIMATE ADEQUATE; PLATELET MORPHOLOGY NORMAL; TOTAL CELLS COUNTED 100
[2017-03-01 12:06] LABS: HYPOCHROMASIA 2+
--- NOTE | 2017-03-01 12:10 | Diagnostic Imaging Report ---
Indication: PAIN Technique: Noncontrast spiral acquisitions obtained through the pelvis. Multiplanar reconstructions generated. Total dose length product 271 mGycm. CTDIvol(s) 10 mGy. Dose reduction achieved using automated exposure control Comparison: Plain radiograph of 15 minutes earlier Findings: There is a comminuted intertrochanteric fracture of the left it. The main fragments are displaced by about 1 cm. There is no evidence of right hip fracture. No acute pelvic fracture demonstrated. The sacrum is intact. There is thickening of adductor musculature, without discrete hematoma. There is a small superficial hematoma within the subcutaneous fat overlying the fracture. There are degenerative changes of the pubic symphysis. Hip joint spaces are preserved. There are are some ossific densities adjacent to the ischia bilaterally, likely reflecting degenerative proliferative changes. Similar ossific densities are seen anterior to the left femoral head. The included pelvic viscera are remarkable for colonic diverticulosis. The uterus is surgically absent. Impression: Positive for left hip intertrochanteric fracture. Overlying small hematoma the subcutaneous fat Generalized thickening of the adductor musculature, probably indicates contusion and possibly subtle hematoma Other findings as noted, including evidence of prior hysterectomy, colonic diverticulosis, degenerative changes as described The CT scanner at [facility] is accredited by the [employer] and the scans are performed using protocols designed to limit radiation exposure to as low as reasonably achievable to attain images of sufficient resolution adequate for diagnostic evaluation.
--- NOTE | 2017-03-01 12:11 | Diagnostic Imaging Report ---
Indications: PAIN Technique: Two views of the femur Comparison: None Findings: Bones are osteoporotic. There is an intertrochanteric comminuted fracture. No distal shaft fracture demonstrated. The visualized pelvic bones are unremarkable. Impression: Positive for left hip intertrochanteric fracture
[2017-03-01 13:30] VITALS: BP 123/60
--- NOTE | 2017-03-01 13:37 | Consultation ---
Consult Note Consult Note 81 yo female with fall and left hip pain. hx provided by ER MD as pt did not provide much history other than the fall. Apparently she lives in a facility and does ambulate. Hip CT shows left hip IT fracture Assessment/Plan Left hip IT fracture plan for ORIF with short gamma nail on AM. Med clearance. 2D echo NPO p MN Thurs for sx at 7am KM SMITH Mar 01, 2017 13:37
[2017-03-01] MEDS ORDERED: LORazepam Inj 2mg/ml 1ml IV PRN (14:00)
[2017-03-01] MEDS ORDERED: Zolpidem 5mg tab ORAL PRN (14:00)
[2017-03-01] MEDS ORDERED: Mylanta II UD 30ml ORAL PRN (14:00)
[2017-03-01] MEDS ORDERED: Miralax 17gm pkt ORAL PRN (14:00)
[2017-03-01] MEDS ORDERED: Morphine Sulfate 4mg/ml Inj IVP PRN (14:00)
--- NOTE | 2017-03-01 14:10 | Diagnostic Imaging Report ---
Indication: Pain, trauma Technique: One view of the pelvis Comparison: CT scan and femur radiograph of earlier the same day Findings: There is a comminuted intertrochanteric fracture of the left hip no associated pelvic fracture. The joint spaces are preserved. Impression: Positive for left hip intertrochanteric fracture
--- NOTE | 2017-03-01 14:20 | Emergency Room Report ---
History of Present Illness General Chief Complaint: Multiple Trauma/Fall Source: Medical Record Present Illness HPI 81-year-old female presents to ED for any left hip pain status post fall. [facility] resides in [facility]. Fall witnessed by nurse. No reported head injury or LOC. Patient presents with left-sided hip pain. Pain is a 6/10, throbbing, nonradiating. Patient is unable to bear weight. Denies any other injuries. No other aggravating or leading factors. Denies any other associated symptoms Allergies: Coded Allergies: No Known Allergies (Unverified , 08/13/16) Patient History Past Medical History: HTN, dementia, psych hx Past Surgical History: none Pertinent Family History: none Social History: Denies: smoking, alcohol use, drug use Now: No Immunizations: UTD Reviewed Nursing Documentation: PMH: Agreed, PSxH: Agreed Nursing Documentation-PMH Past Medical History: No History, Except For Hx Cardiac Problems: No - Anemia, Bradycardia Hx Hypertension: Yes Hx Pacemaker: No Hx Asthma: No Hx COPD: No Hx Diabetes: No Hx Cancer: No Hx Dialysis: No History Of Psychiatric Problem: Yes - Anxiety, Schizophrenia, Major Depression Hx Neurological Problems: Yes - ENCEPHALOPATHY, muscle weakness Hx Cerebrovascular Accident: No Hx Dementia: Yes Hx Seizures: No Review of Systems All Other Systems: negative except mentioned in HPI Physical Exam Vital Signs Date Time Temp Pulse Resp B/P (MAP) Pulse Ox O2 Delivery O2 Flow Rate FiO2 03/01/17 10:50 97.5 93 18 151/79 95 Room Air Sp02 EP Interpretation: reviewed, normal General Appearance: no apparent distress, alert, GCS 15, non-toxic Head: normocephalic, atraumatic Eyes: bilateral eye normal inspection, bilateral eye PERRL ENT: hearing grossly normal, normal pharynx, no angioedema, normal voice Neck: full range of motion, supple/symm/no masses Respiratory: chest non-tender, lungs clear, normal breath sounds, speaking full sentences Cardiovascular #1: regular rate, rhythm, no edema Cardiovascular #2: 2+ carotid (R), 2+ carotid (L), 2+ radial (R), 2+ radial (L) , 2+ dorsalis pedis (R), 2+ dorsalis pedis (L) Gastrointestinal: normal bowel sounds, non tender, soft, non-distended, no guarding, no rebound Rectal: deferred Genitourinary: normal inspection, no CVA tenderness Musculoskeletal: back normal, gait/station normal, normal range of motion, tender - L hip Neurologic: alert, oriented x3, responsive, motor strength/tone normal, sensory intact, speech normal Psychiatric: judgement/insight normal, memory normal, mood/affect normal, no suicidal/homicidal ideation Reflexes: 3+ bicep (R), 3+ bicep (L), 3+ tricep (R), 3+ tricep (L), 3+ knee (R) , 3+ knee (L) Skin: normal color, no rash, warm/dry, well hydrated Lymphatic: no adenopathy Medical Decision Making Diagnostic Impression: Primary Impression: Fracture, intertrochanteric, left femur Qualified Codes: S72.145A - Nondisplaced intertrochanteric fracture of left femur, initial encounter for closed fracture Additional Impressions: Fall Qualified Codes: W19.XXXA - Unspecified fall, initial encounter Encephalopathy ER Course Hospital Course 81-year-old female presents to ED with L hip pain s/p fall Differential diagnoses include: fracture, dislocation, contusion Clinical course Patient placed on stretcher. After initial history and physical I ordered labs , pain medication and imaging studies Labs reviewed-mild leukocytosis noted, electrolytes okay, hemoglobin/hematocrit okay Femur x-ray shows L intertrochanteric fx CT Pelvis shows L intertrochanteric fx Case discussed with Dr. Ramos who agreed to consult on this case. Case discussed with Dr. Patino who agreed to accept the patient to his service for further care and support i. I feel this is a highly complex case requiring extensive working including EKG/Rhythm strip, Xray/CT/US, Blood/urine lab work, repeat exams while in ED, and administration of strong opiates/narcotics for pain control, admission to hospital or close patient follow up. Diagnosis - left intertrochanteric fracture, fall, encephalopathy Admitted to floor in serious condition Labs Test 03/01/17 11:15 White Blood Count 14.3 K/UL (4.8-10.8) Red Blood Count 4.12 M/UL (4.20-5.40) Hemoglobin 11.9 G/DL (12.0-16.0) Hematocrit 38.2 % (37.0-47.0) Mean Corpuscular Volume 93 FL (80-99) Mean Corpuscular Hemoglobin 28.8 PG (27.0-31.0) Mean Corpuscular Hemoglobin Concent 31.1 G/DL (32.0-36.0) Red Cell Distribution Width 12.8 % (11.6-14.8) Platelet Count 272 K/UL (150-450) Mean Platelet Volume 6.6 FL (6.5-10.1) Neutrophils (%) (Auto) % (45.0-75.0) Lymphocytes (%) (Auto) % (20.0-45.0) Monocytes (%) (Auto) % (1.0-10.0) Eosinophils (%) (Auto) % (0.0-3.0) Basophils (%) (Auto) % (0.0-2.0) Differential Total Cells Counted 100 Neutrophils % (Manual) 91 % (45-75) Lymphocytes % (Manual) 4 % (20-45) Monocytes % (Manual) 3 % (1-10) Eosinophils % (Manual) 0 % (0-3) Basophils % (Manual) 0 % (0-2) Band Neutrophils 2 % (0-8) Platelet Estimate Adequate Platelet Morphology Normal Hypochromasia 2+ Prothrombin Time 10.4 SEC (9.30-11.50) Prothromb Time International Ratio 1.0 (0.9-1.1) Activated Partial Thromboplast Time 23 SEC (23-33) Sodium Level 139 mEQ/L (135-145) Potassium Level 4.3 mEQ/L (3.4-4.9) Chloride Level 97 mEQ/L (98-107) Carbon Dioxide Level 27 mEQ/L (20-30) Anion Gap 15 (5-15) Blood Urea Nitrogen 16 mg/dL (7-23) Creatinine 1.1 mg/dL (0.5-0.9) Estimat Glomerular Filtration Rate mL/min (>60) Glucose Level 164 mg/dL (74-106) Calcium Level 8.7 mg/dL (8.6-10.2) Total Bilirubin 0.5 mg/dL (0.0-1.2) Aspartate Amino Transf (AST/SGOT) 20 U/L (5-40) Alanine Aminotransferase (ALT/SGPT) 6 U/L (3-33) Alkaline Phosphatase 64 U/L (35-104) Total Protein 7.0 g/dL (6.6-8.7) Albumin 3.7 g/dL (3.5-5.2) Globulin 3.3 g/dL Albumin/Globulin Ratio 1.1 (1.0-2.7) Other X-Ray Diagnostic Results Other X-Ray Diagnostic Results : X-Ray ordered: left femur # of Views/Limited Vs Complete: 2 View Indication: Pain EP Interpretation: Yes Interpretation: no dislocation, no soft tissue swelling Impression: Other - left intertrochanteric fracture Electronically Signed by: Electronically signed by Brayan Delatorre MD CT/MRI/US Diagnostic Results CT/MRI/US Diagnostic Results : Imaging Test Ordered: CT pelvis Impression left intertrochanteric fracture Last Vital Signs Date Time Temp Pulse Resp B/P (MAP) Pulse Ox O2 Delivery O2 Flow Rate FiO2 03/01/17 13:44 97.8 92 16 123/60 96 Room Air Status: improved Disposition: ADMITTED INPATIENT Condition: Serious Referrals: RAIZA PATINO (PCP) BRAYAN DELATORRE M.D. Mar 01, 2017 14:20
[2017-03-01 15:15] VITALS: BP_SYST 154; BP_DIAS 84; BP_DIAS 87
[2017-03-01] MEDS: D5 1/2NS 1,000 ML IV SCH (15:38)
--- NOTE | 2017-03-01 15:47 | Consultation ---
History of Present Illness General Date patient seen: Mar 01, 2017 Chief Complaint: Multiple Trauma/Fall Reason for Consultation: inpatient management Present Illness HPI 81-year-old female with hx of dementia, detention resident presented to ED for left hip pain status post fall. Pain is a 6/10, throbbing, nonradiating. Patient is unable to bear weight. Denies any other injuries. she was diagnosed to have his fracture and admitted for surgical treatment. Allergies: Coded Allergies: No Known Allergies (Unverified , 08/13/16) Medication History Scheduled Amlodipine Besylate* (Amlodipine Besylate*), 10 MG ORAL DAILY, (Reported) Ascorbic Acid* (Vitamin C*), 500 MG ORAL DAILY, (Reported) Docusate Sodium* (Docusate Sodium*), 100 MG ORAL TWICE A DAY, (Reported) Donepezil Hcl* (Aricept*), 10 MG ORAL DAILY, (Reported) Ferrous Sulfate* (Ferrous Sulfate*), 325 MG ORAL DAILY, (Reported) Lorazepam* (Lorazepam*), 1 MG ORAL Q6HR, (Reported) Magnesium Hydroxide* (Milk Of Magnesia*), 30 ML ORAL DAILY, (Reported) Metoprolol Tartrate* (Metoprolol Tartrate*), 50 MG ORAL EVERY 12 HOURS, ( Reported) Metoprolol Tartrate* (Metoprolol Tartrate*), 25 MG ORAL EVERY 12 HOURS, ( Reported) Multivitamins* (Multivitamins*), 1 TAB ORAL DAILY, (Reported) Risperidone (Risperidone), 1 MG PO BID, (Reported) Zinc Sulfate (Zinc Sulfate*), 220 MG ORAL DAILY, (Reported) Scheduled PRN Acetaminophen (Acetaminophen), 650 MG ORAL Q6H PRN for Prn Headache/Temp > 101, (Reported) Acetaminophen* (Acetaminophen 325MG Tablet*), 650 MG ORAL Q4H PRN for For Pain, (Reported) Lorazepam* (Ativan*), 0.5 MG ORAL BID PRN for For Anxiety, (Reported) Magnesium Hydroxide* (Milk Of Magnesia*), 30 ML ORAL DAILY PRN for Constipation, (Reported) Patient History Healthcare decision maker Resuscitation status Advanced Directive on File Past Medical/Surgical History Past Medical/Surgical History: (1) Severe malnutrition (2) HTN (hypertension) Review of Systems All Other Systems: negative except mentioned in HPI Physical Exam General Appearance: cachetic Lines, tubes and drains: peripheral HEENT: normocephalic Neck: non-tender, normal alignment Respiratory/Chest: chest wall non-tender, lungs clear Breasts: no masses Cardiovascular/Chest: normal peripheral pulses, normal rate Abdomen: normal bowel sounds, non tender Genitourinary/Rectal: normal genital exam, normal rectal exam Extremities: normal range of motion, non-tender Skin Exam: normal pigmentation Neurologic: die filer II-XII grossly normal Last 24 Hour Vital Signs Date Time Temp Pulse Resp B/P (MAP) Pulse Ox O2 Delivery O2 Flow Rate FiO2 03/01/17 15:00 94 154/87 03/01/17 13:44 97.8 92 16 123/60 96 Room Air 03/01/17 13:30 97.8 92 16 123/60 96 Room Air 03/01/17 12:41 97.5 03/01/17 11:12 97.5 18 151/79 95 Room Air 03/01/17 10:50 97.5 93 18 151/79 95 Room Air Laboratory Tests Test 03/01/17 11:15 White Blood Count 14.3 K/UL (4.8-10.8) H Red Blood Count 4.12 M/UL (4.20-5.40) L Hemoglobin 11.9 G/DL (12.0-16.0) L Hematocrit 38.2 % (37.0-47.0) Mean Corpuscular Volume 93 FL (80-99) Mean Corpuscular Hemoglobin 28.8 PG (27.0-31.0) Mean Corpuscular Hemoglobin Concent 31.1 G/DL (32.0-36.0) L Red Cell Distribution Width 12.8 % (11.6-14.8) Platelet Count 272 K/UL (150-450) Mean Platelet Volume 6.6 FL (6.5-10.1) Neutrophils (%) (Auto) % (45.0-75.0) Lymphocytes (%) (Auto) % (20.0-45.0) Monocytes (%) (Auto) % (1.0-10.0) Eosinophils (%) (Auto) % (0.0-3.0) Basophils (%) (Auto) % (0.0-2.0) Differential Total Cells Counted 100 Neutrophils % (Manual) 91 % (45-75) H Lymphocytes % (Manual) 4 % (20-45) L Monocytes % (Manual) 3 % (1-10) Eosinophils % (Manual) 0 % (0-3) Basophils % (Manual) 0 % (0-2) Band Neutrophils 2 % (0-8) Platelet Estimate Adequate Platelet Morphology Normal Hypochromasia 2+ Prothrombin Time 10.4 SEC (9.30-11.50) Prothromb Time International Ratio 1.0 (0.9-1.1) Activated Partial Thromboplast Time 23 SEC (23-33) Sodium Level 139 mEQ/L (135-145) Potassium Level 4.3 mEQ/L (3.4-4.9) Chloride Level 97 mEQ/L (98-107) L Carbon Dioxide Level 27 mEQ/L (20-30) Anion Gap 15 (5-15) Blood Urea Nitrogen 16 mg/dL (7-23) Creatinine 1.1 mg/dL (0.5-0.9) H Estimat Glomerular Filtration Rate mL/min (>60) Glucose Level 164 mg/dL (74-106) H Calcium Level 8.7 mg/dL (8.6-10.2) Total Bilirubin 0.5 mg/dL (0.0-1.2) Aspartate Amino Transf (AST/SGOT) 20 U/L (5-40) Alanine Aminotransferase (ALT/SGPT) 6 U/L (3-33) Alkaline Phosphatase 64 U/L (35-104) Total Protein 7.0 g/dL (6.6-8.7) Albumin 3.7 g/dL (3.5-5.2) Globulin 3.3 g/dL Albumin/Globulin Ratio 1.1 (1.0-2.7) Height (Feet): 5 Height (Inches): 2.00 Weight (Pounds): 125 Medications Current Medications Medications (Trade) Dose Ordered Sig/Brenda Route PRN Reason Start Time Stop Time Status Last Admin Dose Admin Acetaminophen (Tylenol) 650 mg Q4H PRN ORAL fever 03/01/17 14:00 03/31/17 13:59 Al Hydroxide/Mg Hydroxide (Mylanta II) 30 ml Q6H PRN ORAL dyspepsia 03/01/17 14:00 03/31/17 13:59 Amlodipine Besylate (Norvasc) 10 mg DAILY ORAL 03/01/17 15:00 03/31/17 14:59 Dextrose (Dextrose 50%) STAT PRN IV Hypoglycemia 03/01/17 14:00 03/31/17 13:59 Dextrose/Sodium Chloride 1,000 ml @ 50 mls/hr Q20H IV 03/01/17 13:53 03/31/17 13:52 03/01/17 15:38 Donepezil HCl (Aricept) 10 mg DAILY ORAL 03/02/17 09:00 04/01/17 08:59 Heparin Sodium (Porcine) (Heparin 5000 units/ml) 5,000 units EVERY 12 HOURS SUBQ 03/01/17 21:00 03/31/17 20:59 Lorazepam (Ativan 2mg/ml 1ml) 0.5 mg Q4H PRN IV For Anxiety 03/01/17 14:00 03/08/17 13:59 Metoprolol Tartrate (Lopressor) 25 mg EVERY 12 HOURS ORAL 03/01/17 21:00 03/31/17 20:59 Morphine Sulfate (Morphine Sulfate) 2 mg EVERY 4 HOURS PRN IVP For Pain 4-6 03/01/17 14:00 03/08/17 13:59 Morphine Sulfate (Morphine Sulfate) 4 mg Q4H PRN IVP For Pain 7-10 03/01/17 14:00 03/08/17 13:59 Ondansetron HCl (Zofran) 4 mg Q6H PRN IVP Nausea & Vomiting 03/01/17 14:00 03/31/17 13:59 Polyethylene Glycol (Miralax) 17 gm HSPRN PRN ORAL Constipation 03/01/17 14:00 03/31/17 13:59 Risperidone (RisperDAL) 1 mg BID ORAL 03/01/17 18:00 03/31/17 17:59 Zolpidem Tartrate (Ambien) 5 mg HSPRN PRN ORAL Insomnia 03/01/17 14:00 03/08/17 13:59 Assessment/Plan Problem List: (1) Fracture, intertrochanteric, left femur ICD Codes: S72.142A - Displaced intertrochanteric fracture of left femur, initial encounter for closed fracture SNOMED: 095027299, 073009013 Qualifiers: Qualified Codes: S72.145A - Nondisplaced intertrochanteric fracture of left femur, initial encounter for closed fracture (2) Leukocytosis ICD Codes: D72.829 - Elevated white blood cell count, unspecified SNOMED: 333529536, 929978757 (3) HTN (hypertension) ICD Codes: I10 - Essential (primary) hypertension SNOMED: 28943171 (4) Severe malnutrition ICD Codes: E43 - Unspecified severe protein-calorie malnutrition SNOMED: 03483177 Assessment/Plan NPO IV fluids check cultures check wbc symptomatic treatment JUSTUS DE LA ROSA Mar 01, 2017 15:47
--- NOTE | 2017-03-01 16:05 | General Progress Note ---
Progress Note Progress Note full consult will be dictated CARLTON MAYO Mar 01, 2017 16:05
--- NOTE | 2017-03-01 17:03 | Infectious Diseases Prog Note ---
Assessment/Plan Problems: (1) Leukocytosis Assessment & Plan: rule out sepsis, will send blood culture , monitor WBC. (2) Fracture of left hip Assessment & Plan: needs surgical repair , ortho is following (3) Hematoma of left hip Assessment & Plan: due to left hip fracture, ortho is following, monitor H/H , transfuse blood as needed Subjective Allergies: Coded Allergies: No Known Allergies (Unverified , 08/13/16) Objective Vital Signs Last 24 Hour Vital Signs Date Time Temp Pulse Resp B/P (MAP) Pulse Ox O2 Delivery O2 Flow Rate FiO2 03/01/17 15:15 97.4 94 17 154/84 95 Room Air 03/01/17 15:00 94 154/87 03/01/17 13:44 97.8 92 16 123/60 96 Room Air 03/01/17 13:30 97.8 92 16 123/60 96 Room Air 03/01/17 12:41 97.5 03/01/17 11:12 97.5 18 151/79 95 Room Air 03/01/17 10:50 97.5 93 18 151/79 95 Room Air Height (Feet): 5 Height (Inches): 2.00 Weight (Pounds): 100 Laboratory Tests Test 03/01/17 11:15 White Blood Count 14.3 K/UL (4.8-10.8) H Red Blood Count 4.12 M/UL (4.20-5.40) L Hemoglobin 11.9 G/DL (12.0-16.0) L Hematocrit 38.2 % (37.0-47.0) Mean Corpuscular Volume 93 FL (80-99) Mean Corpuscular Hemoglobin 28.8 PG (27.0-31.0) Mean Corpuscular Hemoglobin Concent 31.1 G/DL (32.0-36.0) L Red Cell Distribution Width 12.8 % (11.6-14.8) Platelet Count 272 K/UL (150-450) Mean Platelet Volume 6.6 FL (6.5-10.1) Neutrophils (%) (Auto) % (45.0-75.0) Lymphocytes (%) (Auto) % (20.0-45.0) Monocytes (%) (Auto) % (1.0-10.0) Eosinophils (%) (Auto) % (0.0-3.0) Basophils (%) (Auto) % (0.0-2.0) Differential Total Cells Counted 100 Neutrophils % (Manual) 91 % (45-75) H Lymphocytes % (Manual) 4 % (20-45) L Monocytes % (Manual) 3 % (1-10) Eosinophils % (Manual) 0 % (0-3) Basophils % (Manual) 0 % (0-2) Band Neutrophils 2 % (0-8) Platelet Estimate Adequate Platelet Morphology Normal Hypochromasia 2+ Prothrombin Time 10.4 SEC (9.30-11.50) Prothromb Time International Ratio 1.0 (0.9-1.1) Activated Partial Thromboplast Time 23 SEC (23-33) Sodium Level 139 mEQ/L (135-145) Potassium Level 4.3 mEQ/L (3.4-4.9) Chloride Level 97 mEQ/L (98-107) L Carbon Dioxide Level 27 mEQ/L (20-30) Anion Gap 15 (5-15) Blood Urea Nitrogen 16 mg/dL (7-23) Creatinine 1.1 mg/dL (0.5-0.9) H Estimat Glomerular Filtration Rate mL/min (>60) Glucose Level 164 mg/dL (74-106) H Calcium Level 8.7 mg/dL (8.6-10.2) Total Bilirubin 0.5 mg/dL (0.0-1.2) Aspartate Amino Transf (AST/SGOT) 20 U/L (5-40) Alanine Aminotransferase (ALT/SGPT) 6 U/L (3-33) Alkaline Phosphatase 64 U/L (35-104) Total Protein 7.0 g/dL (6.6-8.7) Albumin 3.7 g/dL (3.5-5.2) Globulin 3.3 g/dL Albumin/Globulin Ratio 1.1 (1.0-2.7) Current Medications Medications (Trade) Dose Ordered Sig/Brenda Route PRN Reason Start Time Stop Time Status Last Admin Dose Admin Acetaminophen (Tylenol) 650 mg Q4H PRN ORAL fever 03/01/17 14:00 03/31/17 13:59 Al Hydroxide/Mg Hydroxide (Mylanta II) 30 ml Q6H PRN ORAL dyspepsia 03/01/17 14:00 03/31/17 13:59 Amlodipine Besylate (Norvasc) 10 mg DAILY ORAL 03/01/17 15:00 03/31/17 14:59 Dextrose (Dextrose 50%) STAT PRN IV Hypoglycemia 03/01/17 14:00 03/31/17 13:59 Dextrose/Sodium Chloride 1,000 ml @ 50 mls/hr Q20H IV 03/01/17 13:53 03/31/17 13:52 03/01/17 15:38 Donepezil HCl (Aricept) 10 mg DAILY ORAL 03/02/17 09:00 04/01/17 08:59 Heparin Sodium (Porcine) (Heparin 5000 units/ml) 5,000 units EVERY 12 HOURS SUBQ 03/01/17 21:00 03/31/17 20:59 Lorazepam (Ativan 2mg/ml 1ml) 0.5 mg Q4H PRN IV For Anxiety 03/01/17 14:00 03/08/17 13:59 Metoprolol Tartrate (Lopressor) 25 mg EVERY 12 HOURS ORAL 03/01/17 21:00 03/31/17 20:59 Morphine Sulfate (Morphine Sulfate) 2 mg EVERY 4 HOURS PRN IVP For Pain 4-6 03/01/17 14:00 03/08/17 13:59 Morphine Sulfate (Morphine Sulfate) 4 mg Q4H PRN IVP For Pain 7-10 03/01/17 14:00 03/08/17 13:59 Ondansetron HCl (Zofran) 4 mg Q6H PRN IVP Nausea & Vomiting 03/01/17 14:00 03/31/17 13:59 Polyethylene Glycol (Miralax) 17 gm HSPRN PRN ORAL Constipation 03/01/17 14:00 03/31/17 13:59 Risperidone (RisperDAL) 1 mg BID ORAL 03/01/17 18:00 03/31/17 17:59 Zolpidem Tartrate (Ambien) 5 mg HSPRN PRN ORAL Insomnia 03/01/17 14:00 03/08/17 13:59 Charis Dominguez M.D. Mar 01, 2017 17:03
--- NOTE | 2017-03-01 17:30 | Cardiology Report ---
APPROVED REPORT EXAM: Two-dimensional and M-mode echocardiogram with Doppler and color Doppler. INDICATION Pre-Op M-Mode DIMENSIONS Left Atrium (MM)4.2 (1.6-4.0cm) Aortic Root2.8 (2.0-3.7cm) Aortic Cusp Exc.1.6 (1.5-2.0cm) Technically limited and difficult study due to poor acoustical windows. M-mode measurements not obtainable due to cardiac structure. Normal left ventricular chamber size, HYPERDYNAMIC systolic function and wall motion. Left ventricular ejection fraction estimated to be 70-75%. Significant concentric left ventricular hypertrophy. No evidence of pericardial or pleural effusion. Right cardiac chamber sizes are within normal limits. Mild left atrial enlargement by 2D. Focal aortic valve sclerosis with adequate cusp excursion. Thickened mitral valve leaflets with normal excursion. Mild mitral annulus and aortic root calcification. Pulmonic valve not well visualized. Normal tricuspid valve structure. IVC not obtainable. ALL VALVE ARE POORLY VISUALIZED A color flow and spectral Doppler study was performed and revealed: No aortic regurgitation. No mitral regurgitation. Mitral diastolic velocities suggest reduced left ventricular relaxation c/w diastolic dysfunction grade 1. No tricuspid regurgitation.
[2017-03-01 18:17] LABS: APPEARANCE,URINE CLEAR; KETONES,URINE NEGATIVE (NEGATIVE); LEUKOCYTE ESTERASE ,URINE NEGATIVE (NEGATIVE); NITRITE,URINE NEGATIVE (NEGATIVE); PH,URINE 8 (4.5-8.0); PROTEIN,URINE 2+ (NEGATIVE); UROBILINOGEN,URINE NORMAL MG/DL (0.0-1.0)
[2017-03-01 18:32] LABS: BACTERIA,URINE FEW /HPF; RBC,URINE 0-2 /HPF (0 - 2); SQUAMOUS EPITHELIAL CELL,UR FEW /LPF (NONE/OCC); WBC,URINE 0-2 /HPF (0 - 2)
[2017-03-01] MEDS: Morphine Sulfate 2mg/ml Inj IVP PRN (18:58)
[2017-03-01 20:00] VITALS: BP 134/69
[2017-03-01] MEDS: Metoprolol 25mg tab ORAL SCH (20:50)
[2017-03-01] MEDS: Heparin 5000 units/ml inj SUBQ SCH (20:54)
[2017-03-02] VITALS: BP 118/74
--- NOTE | 2017-03-02 00:30 | Consultation ---
DATE OF CONSULTATION: ORTHOPEDIC CONSULT HISTORY: The patient is an 81-year-old female, who apparently had a fall in her nursing facility. She was transferred to [facility] ER for evaluation. Not much history was able to be obtained from the patient. She was awake and she was speaking, although she was not answering questions. She did indicate that she fell and was holding her left hip in discomfort. PAST MEDICAL HISTORY: Dementia. PAST SURGICAL HISTORY: None known. CURRENT MEDICATIONS: Please see chart. ALLERGIES: None documented. SOCIAL HISTORY: Patient is a long-term resident. REVIEW OF SYSTEMS: Difficult to obtain. The patient does complain of left hip pain and points to the left hip in discomfort. Per the history gathered, it does not appear that this was a syncopal episode. It does appear she has a mechanical fall at her facility. PHYSICAL EXAMINATION: She is alert. She is awake. She is answering questions. She does not appear to be in any acute distress, although she does not answer all questions appropriately. She is a bit confused presently. She grimaces to palpation of the left hip. She has a shortened and rotated left lower extremity. She is neurovascularly intact. There is no sign of skin breakdown in this area. X-RAYS: X-rays of the femur and CT of the pelvis are reviewed. There is a left hip intertrochanteric fracture. IMPRESSION: Left hip intertrochanteric fracture. DISCUSSION: At this time, I recommend proceeding with left hip open reduction and internal fixation, and we will look to Dr. Jain for medical clearance preoperatively. A 2D echo will be ordered and all necessary medical workup will be done now by Dr. Jain in preparation for surgery, which we will go forward with on . This was discussed with the patient, who did nod in understanding, although a consent will certainly need to be obtained. Risks of surgery include nerve injury, vessel injury, risk of infection, bleeding, risk of neurovascular complications, hardware failure, fracture, need for revision surgery down the line, possible painful hardware, and continued pain after surgery. Thank you for allowing me to participate in the care of this patient. If there are any questions or concerns, please do not hesitate to contact me. Josiah Barney M.D. Rui Wang DR: DION JOB#: [id number] CC:
[2017-03-02] MEDS: Morphine Sulfate 2mg/ml Inj IVP PRN ×2 (00:36→14:18)
[2017-03-02 04:00] VITALS: BP 149/84
[2017-03-02 06:18] LABS: BASOPHILS % (AUTO) 0.2 % (0.0-2.0); LYMPHOCYTES % (AUTO) 11.8 % (20.0-45.0); MEAN CORPUSCULAR HEMOGLOBIN 30.3 PG (27.0-31.0); MEAN CORPUSCULAR HGB CONC 32.5 G/DL (32.0-36.0); MEAN CORPUSCULAR VOLUME 93 FL (80-99); MEAN PLATELET VOLUME 6.8 FL (6.5-10.1); MONOCYTES % (AUTO) 6.9 % (1.0-10.0); PLATELET COUNT 218 K/UL (150-450); RED CELL DISTRIBUTION WIDTH 12.9 % (11.6-14.8)
[2017-03-02 06:38] LABS: ALANINE AMINOTRANSFERASE 7 U/L (3-33); ANION GAP 10 (5-15); ASPARTATE AMINO TRANSFERASE 16 U/L (5-40); CALCIUM 8.6 mg/dL (8.6-10.2); CARBON DIOXIDE 30 mEQ/L (20-30); CHLORIDE 100 mEQ/L (98-107); CREATININE 1.4 mg/dL (0.5-0.9); HEMOLYSIS 3; POTASSIUM 4.3 mEQ/L (3.4-4.9); SODIUM 140 mEQ/L (135-145); TOTAL PROTEIN 6.5 g/dL (6.6-8.7)
--- NOTE | 2017-03-02 07:34 | Cardiology Progress Note ---
Assessment/Plan Assessment/Plan The patient is seen and examined, full consult note will be dictated. Objective Last 24 Hour Vital Signs Date Time Temp Pulse Resp B/P (MAP) Pulse Ox O2 Delivery O2 Flow Rate FiO2 03/02/17 04:00 97.3 71 19 149/84 95 Room Air 03/02/17 00:00 98.1 72 19 118/74 98 Room Air 03/01/17 20:50 84 134/69 03/01/17 20:00 97.8 84 18 134/69 97 Room Air 03/01/17 19:28 97.4 03/01/17 15:15 97.4 94 17 154/84 95 Room Air 03/01/17 15:15 97.4 94 17 154/87 95 Room Air 03/01/17 15:00 94 154/87 03/01/17 13:44 97.8 92 16 123/60 96 Room Air 03/01/17 13:30 97.8 92 16 123/60 96 Room Air 03/01/17 12:41 97.5 03/01/17 11:12 97.5 18 151/79 95 Room Air 03/01/17 10:50 97.5 93 18 151/79 95 Room Air Laboratory Tests Test 03/01/17 11:15 03/01/17 17:15 03/02/17 05:25 White Blood Count 14.3 K/UL (4.8-10.8) H 8.0 K/UL (4.8-10.8) Red Blood Count 4.12 M/UL (4.20-5.40) L 3.20 M/UL (4.20-5.40) L Hemoglobin 11.9 G/DL (12.0-16.0) L 9.7 G/DL (12.0-16.0) L Hematocrit 38.2 % (37.0-47.0) 29.8 % (37.0-47.0) L Mean Corpuscular Volume 93 FL (80-99) 93 FL (80-99) Mean Corpuscular Hemoglobin 28.8 PG (27.0-31.0) 30.3 PG (27.0-31.0) Mean Corpuscular Hemoglobin Concent 31.1 G/DL (32.0-36.0) L 32.5 G/DL (32.0-36.0) Red Cell Distribution Width 12.8 % (11.6-14.8) 12.9 % (11.6-14.8) Platelet Count 272 K/UL (150-450) 218 K/UL (150-450) Mean Platelet Volume 6.6 FL (6.5-10.1) 6.8 FL (6.5-10.1) Neutrophils (%) (Auto) % (45.0-75.0) 81.0 % (45.0-75.0) H Lymphocytes (%) (Auto) % (20.0-45.0) 11.8 % (20.0-45.0) L Monocytes (%) (Auto) % (1.0-10.0) 6.9 % (1.0-10.0) Eosinophils (%) (Auto) % (0.0-3.0) 0.0 % (0.0-3.0) Basophils (%) (Auto) % (0.0-2.0) 0.2 % (0.0-2.0) Differential Total Cells Counted 100 Neutrophils % (Manual) 91 % (45-75) H Lymphocytes % (Manual) 4 % (20-45) L Monocytes % (Manual) 3 % (1-10) Eosinophils % (Manual) 0 % (0-3) Basophils % (Manual) 0 % (0-2) Band Neutrophils 2 % (0-8) Platelet Estimate Adequate Platelet Morphology Normal Hypochromasia 2+ Prothrombin Time 10.4 SEC (9.30-11.50) Prothromb Time International Ratio 1.0 (0.9-1.1) Activated Partial Thromboplast Time 23 SEC (23-33) Sodium Level 139 mEQ/L (135-145) 140 mEQ/L (135-145) Potassium Level 4.3 mEQ/L (3.4-4.9) 4.3 mEQ/L (3.4-4.9) Chloride Level 97 mEQ/L (98-107) L 100 mEQ/L (98-107) Carbon Dioxide Level 27 mEQ/L (20-30) 30 mEQ/L (20-30) Anion Gap 15 (5-15) 10 (5-15) Blood Urea Nitrogen 16 mg/dL (7-23) 24 mg/dL (7-23) H Creatinine 1.1 mg/dL (0.5-0.9) H 1.4 mg/dL (0.5-0.9) H Estimat Glomerular Filtration Rate mL/min (>60) mL/min (>60) Glucose Level 164 mg/dL (74-106) H 144 mg/dL (74-106) H Calcium Level 8.7 mg/dL (8.6-10.2) 8.6 mg/dL (8.6-10.2) Total Bilirubin 0.5 mg/dL (0.0-1.2) 0.5 mg/dL (0.0-1.2) Aspartate Amino Transf (AST/SGOT) 20 U/L (5-40) 16 U/L (5-40) Alanine Aminotransferase (ALT/SGPT) 6 U/L (3-33) 7 U/L (3-33) Alkaline Phosphatase 64 U/L (35-104) 57 U/L (35-104) Total Protein 7.0 g/dL (6.6-8.7) 6.5 g/dL (6.6-8.7) L Albumin 3.7 g/dL (3.5-5.2) 3.4 g/dL (3.5-5.2) L Globulin 3.3 g/dL 3.1 g/dL Albumin/Globulin Ratio 1.1 (1.0-2.7) 1.0 (1.0-2.7) Urine Color Pale yellow Urine Appearance Clear Urine pH 8 (4.5-8.0) Urine Specific [place] 1.010 (1.005-1.035) Urine Protein 2+ (NEGATIVE) H Urine Glucose (UA) Negative (NEGATIVE) Urine Ketones Negative (NEGATIVE) Urine Occult Blood Negative (NEGATIVE) Urine Nitrite Negative (NEGATIVE) Urine Bilirubin Negative (NEGATIVE) Urine Urobilinogen Normal MG/DL (0.0-1.0) Urine Leukocyte Esterase Negative (NEGATIVE) Urine RBC 0-2 /HPF (0 - 2) Urine WBC 0-2 /HPF (0 - 2) Urine Squamous Epithelial Cells Few /LPF (NONE/OCC) Urine Bacteria Few /HPF (NONE) Urine Random Creatinine Pending Urine Random Microalbumin Pending Urine Random Total Protein 56 mg/dL Urine Random Sodium 170 mmol/L Urine Creatinine 56.0 mg/dL Urine Microalbumin/Creatinine Ratio Pending Thyroid Stimulating Hormone (TSH) 6.610 uIU/mL (0.300-4.500) ERA CHEUNG Mar 02, 2017 07:34
--- NOTE | 2017-03-02 08:09 | Nephrology Progress Note ---
Assessment/Plan Assessment 1. Acute renal failure.resolved 2. left hip fracture 3. Failure to thrive now pt has good appetite 4. Dehydration. 5.HTN Plan Plan continue iv check CPK monitoring electrolyte avoid NSAID Subjective ROS Limited/Unobtainable: Yes Constitutional: Reports: no symptoms HEENT: Reports: no symptoms Genitourinary: Reports: no symptoms Neurologic/Psychiatric: Reports: no symptoms Subjective no acute events over night Objective Objective Last 24 Hour Vital Signs Date Time Temp Pulse Resp B/P (MAP) Pulse Ox O2 Delivery O2 Flow Rate FiO2 03/02/17 04:00 97.3 71 19 149/84 95 Room Air 03/02/17 00:00 98.1 72 19 118/74 98 Room Air 03/01/17 20:50 84 134/69 03/01/17 20:00 97.8 84 18 134/69 97 Room Air 03/01/17 19:28 97.4 03/01/17 15:15 97.4 94 17 154/84 95 Room Air 03/01/17 15:15 97.4 94 17 154/87 95 Room Air 03/01/17 15:00 94 154/87 03/01/17 13:44 97.8 92 16 123/60 96 Room Air 03/01/17 13:30 97.8 92 16 123/60 96 Room Air 03/01/17 12:41 97.5 03/01/17 11:12 97.5 18 151/79 95 Room Air 03/01/17 10:50 97.5 93 18 151/79 95 Room Air Laboratory Tests 03/01/17 11:15: White Blood Count 14.3H, Red Blood Count 4.12L, Hemoglobin 11.9L, Hematocrit 38.2, Mean Corpuscular Volume 93, Mean Corpuscular Hemoglobin 28.8, Mean Corpuscular Hemoglobin Concent 31.1L, Red Cell Distribution Width 12.8, Platelet Count 272, Mean Platelet Volume 6.6, Neutrophils (%) (Auto) , Lymphocytes (%) (Auto) , Monocytes (%) (Auto) , Eosinophils (%) (Auto) , Basophils (%) (Auto) , Differential Total Cells Counted 100, Neutrophils % ( Manual) 91H, Lymphocytes % (Manual) 4L, Monocytes % (Manual) 3, Eosinophils % ( Manual) 0, Basophils % (Manual) 0, Band Neutrophils 2, Platelet Estimate Adequate, Platelet Morphology Normal, Hypochromasia 2+, Prothrombin Time 10.4, Prothromb Time International Ratio 1.0, Activated Partial Thromboplast Time 23, Sodium Level 139, Potassium Level 4.3, Chloride Level 97L, Carbon Dioxide Level 27, Anion Gap 15, Blood Urea Nitrogen 16, Creatinine 1.1H, Estimat Glomerular Filtration Rate , Glucose Level 164H, Calcium Level 8.7, Total Bilirubin 0.5, Aspartate Amino Transf (AST/SGOT) 20, Alanine Aminotransferase (ALT/SGPT) 6, Alkaline Phosphatase 64, Total Protein 7.0, Albumin 3.7, Globulin 3.3, Albumin/ Globulin Ratio 1.1 03/01/17 17:15: Urine Color Pale yellow, Urine Appearance Clear, Urine pH 8, Urine Specific [place] 1.010, Urine Protein 2+H, Urine Glucose (UA) Negative, Urine Ketones Negative, Urine Occult Blood Negative, Urine Nitrite Negative, Urine Bilirubin Negative, Urine Urobilinogen Normal, Urine Leukocyte Esterase Negative, Urine RBC 0-2, Urine WBC 0-2, Urine Squamous Epithelial Cells Few, Urine Bacteria Few , Urine Random Creatinine [Pending], Urine Random Microalbumin [Pending], Urine Random Total Protein 56, Urine Random Sodium 170, Urine Creatinine 56.0, Urine Microalbumin/Creatinine Ratio [Pending] 03/02/17 05:25: White Blood Count 8.0, Red Blood Count 3.20L, Hemoglobin 9.7L, Hematocrit 29.8L , Mean Corpuscular Volume 93, Mean Corpuscular Hemoglobin 30.3, Mean Corpuscular Hemoglobin Concent 32.5, Red Cell Distribution Width 12.9, Platelet Count 218, Mean Platelet Volume 6.8, Neutrophils (%) (Auto) 81.0H, Lymphocytes ( %) (Auto) 11.8L, Monocytes (%) (Auto) 6.9, Eosinophils (%) (Auto) 0.0, Basophils (%) (Auto) 0.2, Sodium Level 140, Potassium Level 4.3, Chloride Level 100, Carbon Dioxide Level 30, Anion Gap 10, Blood Urea Nitrogen 24H, Creatinine 1.4H, Estimat Glomerular Filtration Rate , Glucose Level 144H, Calcium Level 8.6 , Total Bilirubin 0.5, Aspartate Amino Transf (AST/SGOT) 16, Alanine Aminotransferase (ALT/SGPT) 7, Alkaline Phosphatase 57, Total Protein 6.5L, Albumin 3.4L, Globulin 3.1, Albumin/Globulin Ratio 1.0, Thyroid Stimulating Hormone (TSH) 6.610H Height (Feet): 5 Height (Inches): 2.00 Weight (Pounds): 100 Objective HEAD AND NECK: No JVP. No LAD. Bitemporal wasting. Extraocular movement intact. Pupils are reactive to light and accommodation. LUNGS: Decreased breathing sound on the both sides. CARDIAC: Regular rate and rhythm. S1 and S2. No murmur or rub. ABDOMEN: Soft, nontender, and nondistended. EXTREMITIES: Trace edema. No clubbing. No cyanosis. CARLTON MAYO Mar 02, 2017 08:09
[2017-03-02 09:00] VITALS: BP 111/67
[2017-03-02] MEDS ORDERED: Memantine 10mg tab ORAL SCH (09:00)
[2017-03-02] MEDS: Memantine 5 MG TAB ORAL SCH ×2 (09:20→17:42)
[2017-03-02] MEDS: Metoprolol 25mg tab ORAL SCH ×2 (09:20→21:29)
[2017-03-02] MEDS: Donepezil 10mg tab ORAL SCH (09:20)
[2017-03-02] MEDS: Heparin 5000 units/ml inj SUBQ SCH ×2 (09:22→21:30)
--- NOTE | 2017-03-02 09:30 | History and Physical Report ---
DATE OF ADMISSION: 03/01/2017 TIME SEEN: 3 p.m. ATTENDING PHYSICIAN: Jong Jain D.O. CONSULTANTS: 1. Josiah Barney M.D. 2. Yariel Laughlin M.D. 3. Lolita Knight M.D. 4. Paramjit Avery M.D. CHIEF COMPLAINT: Fall, left hip fracture. Brief History: This is an 81-year-old female from [facility], presents with above-mentioned diagnosis of having sustained a fall and left hip pain, diagnosed with left hip fracture. Currently, calm in bed, slight left hip pain. Past Medical History: Include hypertension, encephalopathy, and insomnia. PAST SURGICAL HISTORY: Unknown. Medications: Include Aricept, Lopressor, heparin, Risperdal, Norvasc, morphine, Ambien, Zofran, and Tylenol. ALLERGIES: Denies. Social History: No smoking, no alcohol, and no intravenous drug abuse. FAMILY HISTORY: Noncontributory. Review Of Systems: Unable to obtain secondary to patient's confusion. PHYSICAL EXAMINATION: GENERAL: Calm in bed, oriented x3, slightly weak, verbal. Vital Signs: Temperature 97 degrees, pulse 92, respirations 16, blood pressure 123/60. CARDIOVASCULAR: No murmurs. LUNGS: Distant and clear. Abdomen: Bowel sounds are positive. Soft, nontender, and nondistended. Extremities: No cyanosis, clubbing, or edema. Left hip is slightly bruised, slightly sore, externally rotated. NEUROLOGICAL: The patient moves all extremities, slightly weak. Laboratory Data: Shows white count of 14, hemoglobin and hematocrit is 11.9 and 38, platelets 272,000. BMP shows chloride 97, glucose 164, creatinine 1.1. INR is 1.0. PTT is 22. ASSESSMENT: 1. Left hip fracture. 2. Renal insufficiency. 3. Diabetes. 4. Hypertension. 5. Leukocytosis. 6. Anemia. 7. Encephalopathy. 8. Insomnia. PLAN: 1. OT, PT, and dietary evaluation. 2. Pain control. 3. Blood pressure and blood sugar control. 4. Dietary followup. 5. IV fluids. 6. Resume home medications. 7. Possible surgery shortly. 8. Dr. Barney, Dr. Laughlin, Dr. Knight, Dr. Avery, and Dr. Gastelum to consult. We will continue to follow this patient medically. Jong Jain D.O. DR: PEBBLES JOB#: [id number] CC:
--- NOTE | 2017-03-02 09:46 | Consultation ---
History of Present Illness General Date patient seen: Mar 02, 2017 Chief Complaint: Present Illness Allergies: Coded Allergies: No Known Allergies (Unverified , 08/13/16) Medication History Scheduled Amlodipine Besylate* (Amlodipine Besylate*), 10 MG ORAL DAILY, (Reported) Ascorbic Acid* (Vitamin C*), 500 MG ORAL DAILY, (Reported) Docusate Sodium* (Docusate Sodium*), 100 MG ORAL TWICE A DAY, (Reported) Donepezil Hcl* (Aricept*), 10 MG ORAL DAILY, (Reported) Ferrous Sulfate* (Ferrous Sulfate*), 325 MG ORAL DAILY, (Reported) Lorazepam* (Lorazepam*), 1 MG ORAL Q6HR, (Reported) Magnesium Hydroxide* (Milk Of Magnesia*), 30 ML ORAL DAILY, (Reported) Metoprolol Tartrate* (Metoprolol Tartrate*), 50 MG ORAL EVERY 12 HOURS, ( Reported) Metoprolol Tartrate* (Metoprolol Tartrate*), 25 MG ORAL EVERY 12 HOURS, ( Reported) Multivitamins* (Multivitamins*), 1 TAB ORAL DAILY, (Reported) Risperidone (Risperidone), 1 MG PO BID, (Reported) Zinc Sulfate (Zinc Sulfate*), 220 MG ORAL DAILY, (Reported) Scheduled PRN Acetaminophen (Acetaminophen), 650 MG ORAL Q6H PRN for Prn Headache/Temp > 101, (Reported) Acetaminophen* (Acetaminophen 325MG Tablet*), 650 MG ORAL Q4H PRN for For Pain, (Reported) Lorazepam* (Ativan*), 0.5 MG ORAL BID PRN for For Anxiety, (Reported) Magnesium Hydroxide* (Milk Of Magnesia*), 30 ML ORAL DAILY PRN for Constipation, (Reported) Patient History Healthcare decision maker UNKNOWN Resuscitation status Full Code Advanced Directive on File No Physical Exam Last 24 Hour Vital Signs Date Time Temp Pulse Resp B/P (MAP) Pulse Ox O2 Delivery O2 Flow Rate FiO2 03/02/17 09:20 71 149/84 03/02/17 09:20 71 149/84 03/02/17 09:00 97.3 86 15 111/67 95 Room Air 03/02/17 04:00 97.3 71 19 149/84 95 Room Air 03/02/17 00:00 98.1 72 19 118/74 98 Room Air 03/01/17 20:50 84 134/69 03/01/17 20:00 97.8 84 18 134/69 97 Room Air 03/01/17 19:28 97.4 03/01/17 15:15 97.4 94 17 154/84 95 Room Air 03/01/17 15:15 97.4 94 17 154/87 95 Room Air 03/01/17 15:00 94 154/87 03/01/17 13:44 97.8 92 16 123/60 96 Room Air 03/01/17 13:30 97.8 92 16 123/60 96 Room Air 03/01/17 12:41 97.5 03/01/17 11:12 97.5 18 151/79 95 Room Air 03/01/17 10:50 97.5 93 18 151/79 95 Room Air Intake and Output 03/02/17 03/03/17 19:00 07:00 # Bowel Movements 1 Laboratory Tests Test 03/01/17 11:15 03/01/17 17:15 03/02/17 05:25 White Blood Count 14.3 K/UL (4.8-10.8) H 8.0 K/UL (4.8-10.8) Red Blood Count 4.12 M/UL (4.20-5.40) L 3.20 M/UL (4.20-5.40) L Hemoglobin 11.9 G/DL (12.0-16.0) L 9.7 G/DL (12.0-16.0) L Hematocrit 38.2 % (37.0-47.0) 29.8 % (37.0-47.0) L Mean Corpuscular Volume 93 FL (80-99) 93 FL (80-99) Mean Corpuscular Hemoglobin 28.8 PG (27.0-31.0) 30.3 PG (27.0-31.0) Mean Corpuscular Hemoglobin Concent 31.1 G/DL (32.0-36.0) L 32.5 G/DL (32.0-36.0) Red Cell Distribution Width 12.8 % (11.6-14.8) 12.9 % (11.6-14.8) Platelet Count 272 K/UL (150-450) 218 K/UL (150-450) Mean Platelet Volume 6.6 FL (6.5-10.1) 6.8 FL (6.5-10.1) Neutrophils (%) (Auto) % (45.0-75.0) 81.0 % (45.0-75.0) H Lymphocytes (%) (Auto) % (20.0-45.0) 11.8 % (20.0-45.0) L Monocytes (%) (Auto) % (1.0-10.0) 6.9 % (1.0-10.0) Eosinophils (%) (Auto) % (0.0-3.0) 0.0 % (0.0-3.0) Basophils (%) (Auto) % (0.0-2.0) 0.2 % (0.0-2.0) Differential Total Cells Counted 100 Neutrophils % (Manual) 91 % (45-75) H Lymphocytes % (Manual) 4 % (20-45) L Monocytes % (Manual) 3 % (1-10) Eosinophils % (Manual) 0 % (0-3) Basophils % (Manual) 0 % (0-2) Band Neutrophils 2 % (0-8) Platelet Estimate Adequate Platelet Morphology Normal Hypochromasia 2+ Prothrombin Time 10.4 SEC (9.30-11.50) Prothromb Time International Ratio 1.0 (0.9-1.1) Activated Partial Thromboplast Time 23 SEC (23-33) Sodium Level 139 mEQ/L (135-145) 140 mEQ/L (135-145) Potassium Level 4.3 mEQ/L (3.4-4.9) 4.3 mEQ/L (3.4-4.9) Chloride Level 97 mEQ/L (98-107) L 100 mEQ/L (98-107) Carbon Dioxide Level 27 mEQ/L (20-30) 30 mEQ/L (20-30) Anion Gap 15 (5-15) 10 (5-15) Blood Urea Nitrogen 16 mg/dL (7-23) 24 mg/dL (7-23) H Creatinine 1.1 mg/dL (0.5-0.9) H 1.4 mg/dL (0.5-0.9) H Estimat Glomerular Filtration Rate mL/min (>60) mL/min (>60) Glucose Level 164 mg/dL (74-106) H 144 mg/dL (74-106) H Calcium Level 8.7 mg/dL (8.6-10.2) 8.6 mg/dL (8.6-10.2) Total Bilirubin 0.5 mg/dL (0.0-1.2) 0.5 mg/dL (0.0-1.2) Aspartate Amino Transf (AST/SGOT) 20 U/L (5-40) 16 U/L (5-40) Alanine Aminotransferase (ALT/SGPT) 6 U/L (3-33) 7 U/L (3-33) Alkaline Phosphatase 64 U/L (35-104) 57 U/L (35-104) Total Protein 7.0 g/dL (6.6-8.7) 6.5 g/dL (6.6-8.7) L Albumin 3.7 g/dL (3.5-5.2) 3.4 g/dL (3.5-5.2) L Globulin 3.3 g/dL 3.1 g/dL Albumin/Globulin Ratio 1.1 (1.0-2.7) 1.0 (1.0-2.7) Urine Color Pale yellow Urine Appearance Clear Urine pH 8 (4.5-8.0) Urine Specific [place] 1.010 (1.005-1.035) Urine Protein 2+ (NEGATIVE) H Urine Glucose (UA) Negative (NEGATIVE) Urine Ketones Negative (NEGATIVE) Urine Occult Blood Negative (NEGATIVE) Urine Nitrite Negative (NEGATIVE) Urine Bilirubin Negative (NEGATIVE) Urine Urobilinogen Normal MG/DL (0.0-1.0) Urine Leukocyte Esterase Negative (NEGATIVE) Urine RBC 0-2 /HPF (0 - 2) Urine WBC 0-2 /HPF (0 - 2) Urine Squamous Epithelial Cells Few /LPF (NONE/OCC) Urine Bacteria Few /HPF (NONE) Urine Random Creatinine Pending Urine Random Microalbumin Pending Urine Random Total Protein 56 mg/dL Urine Random Sodium 170 mmol/L Urine Creatinine 56.0 mg/dL Urine Microalbumin/Creatinine Ratio Pending Thyroid Stimulating Hormone (TSH) 6.610 uIU/mL (0.300-4.500) Height (Feet): 5 Height (Inches): 2.00 Weight (Pounds): 100 Medications Current Medications Medications (Trade) Dose Ordered Sig/Brenda Route PRN Reason Start Time Stop Time Status Last Admin Dose Admin Acetaminophen (Tylenol) 650 mg Q4H PRN ORAL fever 03/01/17 14:00 03/31/17 13:59 Al Hydroxide/Mg Hydroxide (Mylanta II) 30 ml Q6H PRN ORAL dyspepsia 03/01/17 14:00 03/31/17 13:59 Amlodipine Besylate (Norvasc) 10 mg DAILY ORAL 03/01/17 15:00 03/31/17 14:59 03/02/17 09:20 Dextrose (Dextrose 50%) STAT PRN IV Hypoglycemia 03/01/17 14:00 03/31/17 13:59 Dextrose/Sodium Chloride 1,000 ml @ 50 mls/hr Q20H IV 03/01/17 13:53 03/31/17 13:52 03/01/17 15:38 Donepezil HCl (Aricept) 10 mg DAILY ORAL 03/02/17 09:00 04/01/17 08:59 03/02/17 09:20 Heparin Sodium (Porcine) (Heparin 5000 units/ml) 5,000 units EVERY 12 HOURS SUBQ 03/01/17 21:00 03/31/17 20:59 03/02/17 09:22 Lorazepam (Ativan 2mg/ml 1ml) 0.5 mg Q4H PRN IV For Anxiety 03/01/17 14:00 03/08/17 13:59 Memantine (Namenda) 5 mg BID ORAL 03/02/17 09:00 04/01/17 08:59 03/02/17 09:20 Metoprolol Tartrate (Lopressor) 25 mg EVERY 12 HOURS ORAL 03/01/17 21:00 03/31/17 20:59 03/02/17 09:20 Morphine Sulfate (Morphine Sulfate) 2 mg EVERY 4 HOURS PRN IVP For Pain 4-6 03/01/17 14:00 03/08/17 13:59 03/02/17 00:36 Morphine Sulfate (Morphine Sulfate) 4 mg Q4H PRN IVP For Pain 7-10 03/01/17 14:00 03/08/17 13:59 Ondansetron HCl (Zofran) 4 mg Q6H PRN IVP Nausea & Vomiting 03/01/17 14:00 03/31/17 13:59 Polyethylene Glycol (Miralax) 17 gm HSPRN PRN ORAL Constipation 03/01/17 14:00 03/31/17 13:59 Risperidone (RisperDAL) 1 mg BID ORAL 03/01/17 18:00 03/31/17 17:59 03/02/17 09:20 Zolpidem Tartrate (Ambien) 5 mg HSPRN PRN ORAL Insomnia 03/01/17 14:00 03/08/17 13:59 Assessment/Plan Assessment/Plan (1) Left hip pain (2) Left hip fracture (3) Dementia Seen dictated. GABRIELA GALVAN Mar 02, 2017 09:46
[2017-03-02] MEDS: D5 1/2NS 1,000 ML IV SCH (10:26)
[2017-03-02] MEDS ORDERED: D5 1/2NS 1000ml IV ONE (11:29)
[2017-03-02 12:00] VITALS: BP 137/61
--- NOTE | 2017-03-02 12:34 | Pulmonology Progress Note ---
Assessment/Plan Problems: (1) Fracture, intertrochanteric, left femur (2) Leukocytosis (3) HTN (hypertension) (4) Severe malnutrition Assessment/Plan anemia w/u ordered wbc normal now monitor BP symptomatic treatment dvt prophylaxis Subjective ROS Limited/Unobtainable: No Interval Events: surgery scheduled for tomorrow Constitutional: Reports: no symptoms HEENT: Repors: no symptoms Allergies: Coded Allergies: No Known Allergies (Unverified , 08/13/16) Objective Last 24 Hour Vital Signs Date Time Temp Pulse Resp B/P (MAP) Pulse Ox O2 Delivery O2 Flow Rate FiO2 03/02/17 09:20 71 149/84 03/02/17 09:20 71 149/84 03/02/17 09:00 97.3 86 15 111/67 95 Room Air 03/02/17 04:00 97.3 71 19 149/84 95 Room Air 03/02/17 00:00 98.1 72 19 118/74 98 Room Air 03/01/17 20:50 84 134/69 03/01/17 20:00 97.8 84 18 134/69 97 Room Air 03/01/17 19:28 97.4 03/01/17 15:15 97.4 94 17 154/84 95 Room Air 03/01/17 15:15 97.4 94 17 154/87 95 Room Air 03/01/17 15:00 94 154/87 03/01/17 13:44 97.8 92 16 123/60 96 Room Air 03/01/17 13:30 97.8 92 16 123/60 96 Room Air 03/01/17 12:41 97.5 Intake and Output 03/02/17 03/03/17 19:00 07:00 # Bowel Movements 1 General Appearance: WD/WN HEENT: normocephalic, atraumatic Respiratory/Chest: chest wall non-tender, lungs clear Cardiovascular: normal peripheral pulses, normal rate Abdomen: normal bowel sounds, soft, non tender Genitourinary: normal external genitalia Extremities: no cyanosis Skin: no rash 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/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 grossly normal Lymphatic: no neck adenopathy Laboratory Tests 03/01/17 17:15: Urine Color Pale yellow, Urine Appearance Clear, Urine pH 8, Urine Specific [place] 1.010, Urine Protein 2+H, Urine Glucose (UA) Negative, Urine Ketones Negative, Urine Occult Blood Negative, Urine Nitrite Negative, Urine Bilirubin Negative, Urine Urobilinogen Normal, Urine Leukocyte Esterase Negative, Urine RBC 0-2, Urine WBC 0-2, Urine Squamous Epithelial Cells Few, Urine Bacteria Few , Urine Random Creatinine [Pending], Urine Random Microalbumin [Pending], Urine Random Total Protein 56, Urine Random Sodium 170, Urine Creatinine 56.0, Urine Microalbumin/Creatinine Ratio [Pending] 03/02/17 05:25: White Blood Count 8.0, Red Blood Count 3.20L, Hemoglobin 9.7L, Hematocrit 29.8L , Mean Corpuscular Volume 93, Mean Corpuscular Hemoglobin 30.3, Mean Corpuscular Hemoglobin Concent 32.5, Red Cell Distribution Width 12.9, Platelet Count 218, Mean Platelet Volume 6.8, Neutrophils (%) (Auto) 81.0H, Lymphocytes ( %) (Auto) 11.8L, Monocytes (%) (Auto) 6.9, Eosinophils (%) (Auto) 0.0, Basophils (%) (Auto) 0.2, Sodium Level 140, Potassium Level 4.3, Chloride Level 100, Carbon Dioxide Level 30, Anion Gap 10, Blood Urea Nitrogen 24H, Creatinine 1.4H, Estimat Glomerular Filtration Rate , Glucose Level 144H, Calcium Level 8.6 , Total Bilirubin 0.5, Aspartate Amino Transf (AST/SGOT) 16, Alanine Aminotransferase (ALT/SGPT) 7, Alkaline Phosphatase 57, Total Protein 6.5L, Albumin 3.4L, Globulin 3.1, Albumin/Globulin Ratio 1.0, Thyroid Stimulating Hormone (TSH) 6.610H Current Medications Medications (Trade) Dose Ordered Sig/Brenda Route PRN Reason Start Time Stop Time Status Last Admin Dose Admin Acetaminophen (Tylenol) 650 mg Q4H PRN ORAL fever 03/01/17 14:00 03/31/17 13:59 Al Hydroxide/Mg Hydroxide (Mylanta II) 30 ml Q6H PRN ORAL dyspepsia 03/01/17 14:00 03/31/17 13:59 Amlodipine Besylate (Norvasc) 10 mg DAILY ORAL 03/01/17 15:00 03/31/17 14:59 03/02/17 09:20 Dextrose (Dextrose 50%) STAT PRN IV Hypoglycemia 03/01/17 14:00 03/31/17 13:59 Dextrose/Sodium Chloride 1,000 ml @ 50 mls/hr Q20H IV 03/01/17 13:53 03/31/17 13:52 03/02/17 10:26 Donepezil HCl (Aricept) 10 mg DAILY ORAL 03/02/17 09:00 04/01/17 08:59 03/02/17 09:20 Heparin Sodium (Porcine) (Heparin 5000 units/ml) 5,000 units EVERY 12 HOURS SUBQ 03/01/17 21:00 03/31/17 20:59 03/02/17 09:22 Lidocaine (Lidoderm 5% PATCH) 1 patch DAILY TDERMAL 03/02/17 11:00 04/01/17 10:59 Lorazepam (Ativan 2mg/ml 1ml) 0.5 mg Q4H PRN IV For Anxiety 03/01/17 14:00 03/08/17 13:59 Memantine (Namenda) 5 mg BID ORAL 03/02/17 09:00 04/01/17 08:59 03/02/17 09:20 Metoprolol Tartrate (Lopressor) 25 mg EVERY 12 HOURS ORAL 03/01/17 21:00 03/31/17 20:59 03/02/17 09:20 Morphine Sulfate (Morphine Sulfate) 2 mg EVERY 4 HOURS PRN IVP For Pain 4-6 03/01/17 14:00 03/08/17 13:59 03/02/17 00:36 Morphine Sulfate (Morphine Sulfate) 4 mg Q4H PRN IVP For Pain 7-10 03/01/17 14:00 03/08/17 13:59 Ondansetron HCl (Zofran) 4 mg Q6H PRN IVP Nausea & Vomiting 03/01/17 14:00 03/31/17 13:59 Polyethylene Glycol (Miralax) 17 gm HSPRN PRN ORAL Constipation 03/01/17 14:00 03/31/17 13:59 Risperidone (RisperDAL) 1 mg BID ORAL 03/01/17 18:00 03/31/17 17:59 03/02/17 09:20 Zolpidem Tartrate (Ambien) 5 mg HSPRN PRN ORAL Insomnia 03/01/17 14:00 03/08/17 13:59 JUSTUS DE LA ROSA Mar 02, 2017 12:34
[2017-03-02 13:12] LABS: CREATININE RANDOM URINE 47.6 mg/dL (Not Estab.); MICROALBUMIN/CREATININE RATIO 486.1 mg/g creat (0.0-30.0)
--- NOTE | 2017-03-02 15:03 | General Progress Note ---
Assessment/Plan Problem List: (1) ATN (acute tubular necrosis) ICD Codes: N17.0 - Acute kidney failure with tubular necrosis SNOMED: 70265143 (2) Fall ICD Codes: W19.XXXA - Unspecified fall, initial encounter SNOMED: 5037901, 433532592 Qualifiers: Qualified Codes: W19.XXXA - Unspecified fall, initial encounter (3) Fracture, intertrochanteric, left femur ICD Codes: S72.142A - Displaced intertrochanteric fracture of left femur, initial encounter for closed fracture SNOMED: 543410412, 863405411 Qualifiers: Qualified Codes: S72.145A - Nondisplaced intertrochanteric fracture of left femur, initial encounter for closed fracture (4) Encephalopathy ICD Codes: G93.40 - Encephalopathy, unspecified SNOMED: 50861699, 183314354 Status: stable, progressing, tolerating diet Assessment/Plan ot pt diet sx am endo eval Subjective Constitutional: Reports: weakness Allergies: Coded Allergies: No Known Allergies (Unverified , 08/13/16) All Systems: reviewed and negative except above Subjective sleepy calm Objective Last 24 Hour Vital Signs Date Time Temp Pulse Resp B/P (MAP) Pulse Ox O2 Delivery O2 Flow Rate FiO2 03/02/17 12:00 97.4 70 14 137/61 95 Room Air 03/02/17 09:20 71 149/84 03/02/17 09:20 71 149/84 03/02/17 09:00 97.3 86 15 111/67 95 Room Air 03/02/17 04:00 97.3 71 19 149/84 95 Room Air 03/02/17 00:00 98.1 72 19 118/74 98 Room Air 03/01/17 20:50 84 134/69 03/01/17 20:00 97.8 84 18 134/69 97 Room Air 03/01/17 19:28 97.4 03/01/17 15:15 97.4 94 17 154/84 95 Room Air 03/01/17 15:15 97.4 94 17 154/87 95 Room Air Intake and Output 03/02/17 03/03/17 19:00 07:00 Intake Total 300 ml Balance 300 ml Intake IV Total 300 ml # Bowel Movements 1 Laboratory Tests 03/01/17 17:15: Urine Color Pale yellow, Urine Appearance Clear, Urine pH 8, Urine Specific [place] 1.010, Urine Protein 2+H, Urine Glucose (UA) Negative, Urine Ketones Negative, Urine Occult Blood Negative, Urine Nitrite Negative, Urine Bilirubin Negative, Urine Urobilinogen Normal, Urine Leukocyte Esterase Negative, Urine RBC 0-2, Urine WBC 0-2, Urine Squamous Epithelial Cells Few, Urine Bacteria Few , Urine Random Creatinine 47.6, Urine Random Microalbumin 231.4, Urine Random Total Protein 56, Urine Random Sodium 170, Urine Creatinine 56.0, Urine Microalbumin/Creatinine Ratio 486.1H 03/02/17 05:25: White Blood Count 8.0, Red Blood Count 3.20L, Hemoglobin 9.7L, Hematocrit 29.8L , Mean Corpuscular Volume 93, Mean Corpuscular Hemoglobin 30.3, Mean Corpuscular Hemoglobin Concent 32.5, Red Cell Distribution Width 12.9, Platelet Count 218, Mean Platelet Volume 6.8, Neutrophils (%) (Auto) 81.0H, Lymphocytes ( %) (Auto) 11.8L, Monocytes (%) (Auto) 6.9, Eosinophils (%) (Auto) 0.0, Basophils (%) (Auto) 0.2, Sodium Level 140, Potassium Level 4.3, Chloride Level 100, Carbon Dioxide Level 30, Anion Gap 10, Blood Urea Nitrogen 24H, Creatinine 1.4H, Estimat Glomerular Filtration Rate , Glucose Level 144H, Calcium Level 8.6 , Total Bilirubin 0.5, Aspartate Amino Transf (AST/SGOT) 16, Alanine Aminotransferase (ALT/SGPT) 7, Alkaline Phosphatase 57, Total Protein 6.5L, Albumin 3.4L, Globulin 3.1, Albumin/Globulin Ratio 1.0, Thyroid Stimulating Hormone (TSH) 6.610H Height (Feet): 5 Height (Inches): 2.00 Weight (Pounds): 100 General Appearance: lethargic EENT: normal ENT inspection Neck: normal alignment Cardiovascular: normal peripheral pulses, normal rate, regular rhythm Respiratory/Chest: chest wall non-tender, lungs clear, normal breath sounds Abdomen: normal bowel sounds, non tender, soft Extremities: normal inspection Edema: no edema noted Arm (L), no edema noted Arm (R), no edema noted Leg (L), no edema noted Leg (R), no edema noted Pedal (L), no edema noted Pedal (R), no edema noted Generalized Neurologic: motor weakness Skin: normal pigmentation, warm/dry RAIZA PATINO Mar 02, 2017 15:03
[2017-03-02 20:00] VITALS: BP 142/72
--- NOTE | 2017-03-02 20:17 | Consultation ---
DATE OF CONSULTATION: 03/02/2017 CARDIOLOGY CONSULTATION REFERRING PHYSICIAN: Jong Jain D.O. Reason For Consultation: Preoperative cardiac assessment for upcoming surgery. History Of Present Illness: The patient is a very unfortunate 81-year-old female with background dementia and psychiatric disorder, who is transferred from a nursing facility for evaluation of left hip pain. Apparently, the patient had a witnessed fall at the nursing facility. There was no loss of consciousness reported. The patient had been complaining of left-sided hip pain, 6/10, throbbing and nonradiating. She was unstable to bear weight. She had an initial workup in the emergency department, which confirmed nondisplaced intertrochanteric fracture of left femur. She is being prepared to have open reduction and internal fixation of left hip. She has underlying dementia and psychiatric disorder and she is not capable of providing any history. This report is provided by using the old records. PAST MEDICAL HISTORY: 1. History of nonthrombocytopenic purpura. 2. History of chronic kidney disease. 3. History of schizophrenia. 4. History of dementia. 5. History of hypertension. PAST SURGICAL HISTORY: None. Medications: From the nursing facility includes acetaminophen 650 mg p.o. q.6 h. for temperature above 101 degrees and headaches, amlodipine 10 mg p.o. daily, vitamin C 500 mg p.o. daily, Colace 100 mg p.o. twice daily, Aricept 10 mg p.o. daily, ferrous sulfate 325 mg p.o. daily, lorazepam 1 mg p.o. q.6 h. and 0.5 mg p.r.n. for insomnia, magnesium hydroxide 30 mL p.o. daily, metoprolol 50 mg p.o. q.12 h., multivitamin one tablet p.o. daily, risperidone 1 mg p.o. twice daily, and zinc sulfate 220 mg p.o. daily. ALLERGIES: No known drug allergies. SOCIAL HISTORY: No history of tobacco, alcohol, or illicit drug use. Family History: No premature coronary artery disease in first-degree relatives according to the records. Review of Systems: Unable to obtain as the patient is demented and not coherent. PHYSICAL EXAMINATION: General: The patient is a very unfortunate 82-year-old female, who is awake, but not coherent, appears to be demented. Vital Signs: Blood pressure 151/79, respirations 18, pulse of 93, temperature 97.5 degrees Fahrenheit, and O2 saturation of 95% on room air. HEENT: Atraumatic and normocephalic. Anicteric. Pupils are equal, round, and reactive to light and accommodation. Extraocular muscles intact. Neck: JVP is less than 5 centimeter. No carotid bruit. Carotid upstrokes 2+ bilaterally. Cardiovascular: Normal S1 and S2. Regular rate and rhythm. No murmurs, gallops, or rubs. PMI is in the fourth intercostal space in the midclavicular line. LUNGS: Clear to auscultation bilaterally. Abdomen: Soft, nontender, and nondistended. No hepatosplenomegaly. Positive bowel sounds. Extremities: No evidence of edema, clubbing, or cyanosis. There is a tenderness over the left hip. Laboratory And Diagnostic Data: WBC is 14.3, hemoglobin 11.9, hematocrit 38.2, and platelet count of 272,000. Sodium is 139, potassium is 4.3, chloride 97, bicarbonate 27, BUN 16, creatinine 1.1, and glucose 164. Calcium is 8.7. INR is 1.0. A 2D echocardiography done in 03/01/2017 showed a normal LV systolic function with LVEF of about 70% to 75% considering left ventricular hypertrophy, which is measured as severe, mild left atrial enlargement, and grade 1 LV diastolic dysfunction. Assessment And Plan: The patient is a very unfortunate 81-year-old female with no background history of coronary artery disease. She is scheduled for intermediate risk surgery, which is open reduction and internal fixation of the left hip. She is not currently capable of providing any symptoms due to her underlying dementia, however, physical examination and 2D echocardiography are well within normal limits. The 2D echocardiography does not show any wall motion abnormalities suggestive of prior myocardial infarction, left ventricular ejection fraction is 70% to 75%. Given the above data, I would believe that the risk of coronary artery events preoperatively for the above surgery would be estimated to be less than 1%. The patient is considered to be cleared for the above surgery. In the meantime, we will control the patient's blood pressure with metoprolol. I would like to stress on the DVT prophylaxis following surgery with the Eliquis 2.5 mg p.o. twice daily for 35 days. I would like to thank, Dr. Jain, for allowing me to participate in care of this patient. Yariel Laughlin M.D. DR: NOA JOB#: [id number] CC:
--- NOTE | 2017-03-02 21:45 | Consultation ---
DATE OF CONSULTATION: 03/02/2017 History Of Present Illness: This is an 81-year-old female patient, who was admitted to [facility]. This patient came in secondary to left hip fracture, but she also has a history of paranoid schizophrenia with acute exacerbation, rule out dementia with psychosis. That is why, psychiatric consultation was requested. When I saw her in the room, she was very confused, disorganized, and had mood lability. She has no logical plan for her own self-care and she has feelings of helplessness, hopelessness, and low energy. She had difficulty with following commands as well. Medical History: She has a history of hypertension, severe malnutrition, left femur fracture, leukocytosis, and hematoma of the left hip. The patient does have confusion and disorganized thought process as well. Medications: Psychotropic medications currently Aricept 10 mg daily and Risperdal 1 mg twice a day, but she continues to have confusion and disorganized thought process. ALLERGIES: No known drug allergies. Social History: She lives in [facility]. She is financially supported by [facility] and Medicare. SUBSTANCE ABUSE HISTORY: Denies drug or alcohol use. Mental Status Examination: This is an 81-year-old female with psychomotor retardation. Mood is depressed. Affect guarded and restricted. Thought process, disorganized and illogical. Denies any current suicidal or homicidal ideations. Insight and judgment is poor. Plan: Plan for this patient is to continue on Risperdal 1 mg b.i.d. Continue Aricept at a dose of 10 mg at bedtime. I am going to add Namenda 5 mg twice a day to augment the cognitive effects of the Aricept. Chart reviewed and discussed with staff. The patient was seen and assessed at the bedside. I would like to thank Dr. Jong Jain for this interesting consultation. Paramjit Avery M.D. DR: ALLISON JOB#: [id number] CC:
--- NOTE | 2017-03-02 22:45 | Consultation ---
DATE OF CONSULTATION: NOTE: INCOMPLETE DICTATION INFECTIOUS DISEASES CONSULTATION REQUESTING PHYSICIAN: Jong Jain D.O. Reason For Consultation: Leukocytosis, rule out sepsis in an 81-year-old female with hip fracture. History of Present Illness: The patient is an 81-year-old female with history of dementia and psychiatric disorder, was brought into [facility] emergency room for left hip pain status post fall. The patient lives [facility] the [facility]. The fall was witnessed by the nurse. She did not lose consciousness. Charis Dominguez M.D. DR: REED JOB#: [id number] CC:
--- NOTE | 2017-03-02 23:00 | Consultation ---
DATE OF CONSULTATION: 03/01/2017 NEPHROLOGY CONSULTATION REFERRING PHYSICIAN: Jong Jain D.O. Reason For Consultation: Acute renal failure, dehydration, and malnutrition. History Of Present Illness: The patient is an unfortunate 81-year-old female, last admission was on 08/13/2016. Apparently, the patient then was admitted with admission of failure to thrive and decreased oral intake. The patient on this admission was brought into [facility] for evaluation of fall. The patient found to have left hip fracture, also found to be dehydrated. INCOMPLETE DICTATION. Luanne Gastelum M.D. DR: JAMAL JOB#: [id number] CC:
--- NOTE | 2017-03-02 23:10 | Infectious Diseases Prog Note ---
Assessment/Plan Problems: (1) Leukocytosis Assessment & Plan: rule out sepsis, await blood culture , monitor WBC. (2) Fracture of left hip Assessment & Plan: needs surgical repair , ortho is following (3) Hematoma of left hip Assessment & Plan: due to left hip fracture, ortho is following, monitor H/H , transfuse blood as needed Subjective ROS Limited/Unobtainable: Yes Allergies: Coded Allergies: No Known Allergies (Unverified , 08/13/16) Objective Vital Signs Last 24 Hour Vital Signs Date Time Temp Pulse Resp B/P (MAP) Pulse Ox O2 Delivery O2 Flow Rate FiO2 03/02/17 21:29 82 142/72 03/02/17 12:00 97.4 70 14 137/61 95 Room Air 03/02/17 09:20 71 149/84 03/02/17 09:20 71 149/84 03/02/17 09:00 97.3 86 15 111/67 95 Room Air 03/02/17 04:00 97.3 71 19 149/84 95 Room Air 03/02/17 00:00 98.1 72 19 118/74 98 Room Air Height (Feet): 5 Height (Inches): 2.00 Weight (Pounds): 100 General Appearance: WD/WN, no acute distress HEENT: normocephalic, atraumatic, anicteric Respiratory/Chest: chest wall non-tender, lungs clear, normal breath sounds, no respiratory distress, no accessory muscle use Cardiovascular: normal peripheral pulses, normal rate, regular rhythm, no gallop/murmur, no JVD Abdomen: normal bowel sounds, soft, non tender, no organomegaly, non distended , no mass Extremities: no cyanosis, no clubbing Skin: no rash, no lesions Laboratory Tests Test 03/02/17 05:25 White Blood Count 8.0 K/UL (4.8-10.8) Red Blood Count 3.20 M/UL (4.20-5.40) L Hemoglobin 9.7 G/DL (12.0-16.0) L Hematocrit 29.8 % (37.0-47.0) L Mean Corpuscular Volume 93 FL (80-99) Mean Corpuscular Hemoglobin 30.3 PG (27.0-31.0) Mean Corpuscular Hemoglobin Concent 32.5 G/DL (32.0-36.0) Red Cell Distribution Width 12.9 % (11.6-14.8) Platelet Count 218 K/UL (150-450) Mean Platelet Volume 6.8 FL (6.5-10.1) Neutrophils (%) (Auto) 81.0 % (45.0-75.0) H Lymphocytes (%) (Auto) 11.8 % (20.0-45.0) L Monocytes (%) (Auto) 6.9 % (1.0-10.0) Eosinophils (%) (Auto) 0.0 % (0.0-3.0) Basophils (%) (Auto) 0.2 % (0.0-2.0) Sodium Level 140 mEQ/L (135-145) Potassium Level 4.3 mEQ/L (3.4-4.9) Chloride Level 100 mEQ/L (98-107) Carbon Dioxide Level 30 mEQ/L (20-30) Anion Gap 10 (5-15) Blood Urea Nitrogen 24 mg/dL (7-23) H Creatinine 1.4 mg/dL (0.5-0.9) H Estimat Glomerular Filtration Rate mL/min (>60) Glucose Level 144 mg/dL (74-106) H Calcium Level 8.6 mg/dL (8.6-10.2) Total Bilirubin 0.5 mg/dL (0.0-1.2) Aspartate Amino Transf (AST/SGOT) 16 U/L (5-40) Alanine Aminotransferase (ALT/SGPT) 7 U/L (3-33) Alkaline Phosphatase 57 U/L (35-104) Total Protein 6.5 g/dL (6.6-8.7) L Albumin 3.4 g/dL (3.5-5.2) L Globulin 3.1 g/dL Albumin/Globulin Ratio 1.0 (1.0-2.7) Thyroid Stimulating Hormone (TSH) 6.610 uIU/mL (0.300-4.500) Current Medications Medications (Trade) Dose Ordered Sig/Brenda Route PRN Reason Start Time Stop Time Status Last Admin Dose Admin Acetaminophen (Tylenol) 650 mg Q4H PRN ORAL fever 03/01/17 14:00 03/31/17 13:59 Al Hydroxide/Mg Hydroxide (Mylanta II) 30 ml Q6H PRN ORAL dyspepsia 03/01/17 14:00 03/31/17 13:59 Amlodipine Besylate (Norvasc) 10 mg DAILY ORAL 03/01/17 15:00 03/31/17 14:59 03/02/17 09:20 Dextrose (Dextrose 50%) STAT PRN IV Hypoglycemia 03/01/17 14:00 03/31/17 13:59 Dextrose/Sodium Chloride 1,000 ml @ 50 mls/hr Q20H IV 03/01/17 13:53 03/31/17 13:52 03/02/17 10:26 Donepezil HCl (Aricept) 10 mg DAILY ORAL 03/02/17 09:00 04/01/17 08:59 03/02/17 09:20 Heparin Sodium (Porcine) (Heparin 5000 units/ml) 5,000 units EVERY 12 HOURS SUBQ 03/01/17 21:00 03/31/17 20:59 03/02/17 21:30 Lidocaine (Lidoderm 5% PATCH) 1 patch DAILY TDERMAL 03/02/17 11:00 04/01/17 10:59 03/02/17 12:48 Lorazepam (Ativan 2mg/ml 1ml) 0.5 mg Q4H PRN IV For Anxiety 03/01/17 14:00 03/08/17 13:59 Memantine (Namenda) 5 mg BID ORAL 03/02/17 09:00 04/01/17 08:59 03/02/17 17:42 Metoprolol Tartrate (Lopressor) 25 mg EVERY 12 HOURS ORAL 03/01/17 21:00 03/31/17 20:59 03/02/17 21:29 Morphine Sulfate (Morphine Sulfate) 2 mg EVERY 4 HOURS PRN IVP For Pain 4-6 03/01/17 14:00 03/08/17 13:59 03/02/17 14:18 Morphine Sulfate (Morphine Sulfate) 4 mg Q4H PRN IVP For Pain 7-10 03/01/17 14:00 03/08/17 13:59 Ondansetron HCl (Zofran) 4 mg Q6H PRN IVP Nausea & Vomiting 03/01/17 14:00 03/31/17 13:59 Polyethylene Glycol (Miralax) 17 gm HSPRN PRN ORAL Constipation 03/01/17 14:00 03/31/17 13:59 Risperidone (RisperDAL) 1 mg BID ORAL 03/01/17 18:00 03/31/17 17:59 03/02/17 17:42 Zolpidem Tartrate (Ambien) 5 mg HSPRN PRN ORAL Insomnia 03/01/17 14:00 03/08/17 13:59 Charis Dominguez M.D. Mar 02, 2017 23:10
[2017-03-03] VITALS (13 sets, daily range): BP systolic 96–155; BP diastolic 47–81
--- NOTE | 2017-03-03 02:30 | Consultation ---
DATE OF CONSULTATION: 03/02/2017 PAIN MANAGEMENT CONSULTATION REFERRING PHYSICIAN: 1. Lolita Knight M.D. 2. Jong Jain D.O. CONSULTING PHYSICIAN: Danna Vasquez M.D. PHYSICIAN FURNITURE DECALS INSPECTOR: Rui Mir CHIEF COMPLAINT: Left hip pain. History of Present Illness: This is an 81-year-old female who is being seen on the medical/surgical floor of [facility] for initial comprehensive pain management consultation. The patient is a poor historian due to dementia and is lying in the bed in no acute distress, nurse at bedside, really showing no signs of pain at this time; however, she was transferred from the retirement after a fall, found to have left hip fracture, seen by orthopedics, and scheduled for surgery tomorrow as per the surgeon. At this time, the patient is on morphine 2 to 4 mg IV every four hours as needed for [id number] pain and is comfortable receiving the morphine as needed. We were consulted so that the patient would have adequate pain control while here in the hospital. PAST MEDICAL HISTORY: Hypertension, dementia, and insomnia. Medications: As per chart, Aricept, Lopressor, heparin, Risperdal, Norvasc, morphine, Ambien, Zofran, and Tylenol. ALLERGIES: No known drug allergies. Social History: As per chart no smoking tobacco, drinking alcohol, or drug abuse. Review Of Systems: Unable to obtain due to the patient's mental status. PHYSICAL EXAMINATION: GENERAL: Alert and awake. Vital Signs: Blood pressure 149/84, heart rate 71, oxygen saturation 97%, respiratory rate 15, and temperature 97.3 degrees Fahrenheit. HEENT: PERRLA. Neck: Range of motion is full in all directions. No tenderness to paracervical muscles. No adenopathy. LUNGS: Lungs are clear. HEART: S1 and S2, regular. ABDOMEN: Benign. Extremities: Upper extremity range of motion is full. Motor is intact. No cyanosis. No clubbing. No edema. Sensory is intact. Reflexes are not obtainable. No adenopathy. Lower extremity motion is reduced due to the patient's pain and condition with tenderness to the left hip. Ecchymosis seen. No cyanosis. No clubbing. Sensory is intact. Reflexes are not obtainable. No adenopathy. Assessment And Plan: This is an 81-year-old female with left hip pain, left hip fracture, and dementia. The patient will be continued on morphine 2 to 4 mg IV every four hours as needed for [id number] pain. We will start the patient on Lidoderm patch applied to the left hip at the site of the pain 12 hours on and 12 hours off. The patient was discussed with Dr. Vasquez and Dr. Vasquez concurred. We will follow the patient. Thank you very much for the courtesy of this consultation. Danna Vasquez M.D. FREYA Mir DR: MARLENE JOB#: [id number] CC:
[2017-03-03] MEDS: D5 1/2NS 1,000 ML IV SCH (05:46)
[2017-03-03] MEDS ORDERED: Duramorph PF 5mg/10ml amp ONE (06:36)
[2017-03-03] MEDS ORDERED: Bacitracin 50000 Units Vial ONE (06:37)
[2017-03-03] MEDS ORDERED: Bupivacaine 0.5% Inj 30 ml vial INJ ONE (06:37)
--- NOTE | 2017-03-03 06:56 | Pre-Procedure Note/Attestation ---
Pre-Procedure Note/Attestation Complete Prior to Procedure Planned Procedure: left Procedure Narrative: left hip ORIF Indications for Procedure Pre-Operative Diagnosis: left hip IT fracture Attestation I attest that I discussed the nature of the procedure; its benefits; risks and complications; and alternatives (and the risks and benefits of such alternatives ), prior to the procedure, with the patient (or the patient's legal community service representative). I attest that, if there was a reasonable possibility of needing a blood transfusion, the patient (or the patient's legal community service representative) was given the [facility] standardized written summary, pursuant to the [place] Blood Safety Act ([place] Health and Safety Code # 1645, as amended). I attest that I re-evaluated the patient just prior to the surgery and that there has been no change in the patient's H&P, except as documented below: NONE VIVEK CLIFFORD Mar 03, 2017 06:56
[2017-03-03] MEDS ORDERED: fentaNYL 100 mcg/2 mL IV ONE (07:30)
[2017-03-03] MEDS ORDERED: Propofol 200mg/20ml IV ONE (07:30)
[2017-03-03] MEDS ORDERED: Midazolam 2mg/2ml Inj ONE (07:30)
[2017-03-03] MEDS ORDERED: LR 1000ml ONE (07:30)
[2017-03-03] MEDS ORDERED: Sterile Water Irrig 1000ml IRRIG ONE (07:30)
[2017-03-03] MEDS ORDERED: NS Irrig 1000ml ONE (07:30)
[2017-03-03] MEDS ORDERED: LR 1000ml 1,000 ML IVLG SCH (07:58)
--- NOTE | 2017-03-03 07:58 | Anethesia Preoperative Eval ---
Anesthesia Pre-op PMH/ROS General Date of Evaluation: Mar 03, 2017 Time of Evaluation: 06:50 Anesthesiologist: Jade ASA Score: ASA 3 Mallampati Score Class I : Soft palate, uvula, fauces, pillars visible Class II: Soft palate, uvula, fauces visible Class III: Soft palate, base of uvula visible Class IV: Only hard plate visible Mallampati Classification: Class III Surgeon: Ector Diagnosis: L femoral Fx Surgical Procedure: ORIF of L femoral Fx Anesthesia History: none Family History: no anesthesia problems Allergies: Coded Allergies: No Known Allergies (Unverified , 08/13/16) Medications: see eMAR Past Medical History Cardiovascular: Reports: HTN, Denies: CAD, MS, valve dz, arrhythmia, other Pulmonary: Denies: asthma, COPD, PO, other Gastrointestinal/Genitourinary: Reports: GERD, CRI, Denies: ESRD, other Neurologic/Psychiatric: Reports: dementia, depression/anxiety, Denies: CVA, TIA, other Endocrine: Reports: hypothyroidism, Denies: DM, steroids, other HEENT: Denies: cataract (L), cataract (R), glaucoma, NELSON [place]OON (L), NELSON [place]OON (R), other Hematology/Immune: Denies: anemia, DVT, bleeding disorder, other Musculoskeletal/Integumentary: Reports: other - mild muscular contraction, Denies: OA, RA, DJD, DDD, edema Other: other - malnourished PMH Narrative: as above admitted for L hip pain after mechanical fall PSxH Narrative: See H&P Anesthesia Pre-op Phys. Exam Physician Exam Last Vital Signs Date Time Temp Pulse Resp B/P (MAP) Pulse Ox O2 Delivery O2 Flow Rate FiO2 03/03/17 04:00 97.7 75 18 146/69 98 Room Air Constitutional: NAD Neurologic: other - unable to obtaine Cardiovascular: RRR, no M/R/G Respiratory: CTA Gastrointestinal: S/NT/ND Airway Exam Mallampati Score: Class III MO: limited Neck: stiff ROM: limited Teeth: missing Dentures: no upper, no lower Anesthesia Pre-op A/P Labs see chart Studies Pre-op Studies: EKG - SR Risk Assessment & Plan Assessment: ASA 3 Plan: SAB vs GA Status Change Before Surgery: No Pre-Antibiotics Drug: Ancef 1gr Given Within 1 Hr of Incision: Yes Time Given: 07:32 SHANNON FREEMAN M.D. Mar 03, 2017 07:58
[2017-03-03] MEDS ORDERED: fentaNYL 100 mcg/2 mL IV PRN (08:00)
[2017-03-03] MEDS ORDERED: DiphenhydrAMINE 50mg/ml Inj IVP PRN (08:00)
--- NOTE | 2017-03-03 08:13 | Brief Operative Note ---
Immediate Post Operative Note Operative Note Chief Complaint: left hip pain Pre-op Diagnosis: left hip IT fracture Procedure: left hip ORIF Post-op Diagnosis: same as pre-op Findings: consistent w/pre-op dx studies Surgeon: md lindsay Software Engineering Manager: evelin taylor Anesthesiologist: md abraham Anesthesia: general Specimen: none Complications: none Condition: stable Fluids: NS Estimated Blood Loss: minimal Drains: none Implant(s) used?: Yes - Rush short gamma nail KM TAYLOR Mar 03, 2017 08:13
--- NOTE | 2017-03-03 08:29 | Immediate Post-Op Evaluation ---
Immediate Post-Op Evalulation Immediate Post-Op Evalulation Procedure: L femoral ORIF Fx Date of Evaluation: Mar 03, 2017 Time of Evaluation: 08:27 IV Fluids: 600 Blood Products: none Estimated Blood Loss: 50 Urinary Output: 100 Blood Pressure Systolic: 144 Blood Pressure Diastolic: 65 Pulse Rate: 64 Respiratory Rate: 20 O2 Sat by Pulse Oximetry: 98 Temperature (Fahrenheit): 97.8 Pain Score (1-10): 2 Nausea: No Vomiting: No Patient Status: reacts, patent, none Hydration Status: adequate SHANNON FREEMAN M.D. Mar 03, 2017 08:29
--- NOTE | 2017-03-03 08:32 | Consultation ---
DATE OF CONSULTATION: 03/01/2017 NEPHROLOGY CONSULTATION CONSULTING PHYSICIAN: Luanne Gastelum M.D. REFERRING PHYSICIAN: Jong Jain D.O. Reason For Consultation: Malnutrition, dehydration, and electrolyte imbalance. History Of Present Illness: The patient is an 81-year-old female with past medical history significant for history of hypertension, history of dementia, history of failure to thrive, was transferred to [facility] for evaluation of fall and trauma. Upon arrival in ER, the patient was found to have a left hip fracture. For that, the patient was got admitted in the hospital. I was called for management of renal disease and electrolyte imbalance. Unfortunately, the patient is unable to provide meaningful history for me. So, most of my history was obtained through reviewing the information from the previous admission, from the emergency room, and from the [facility]. Past Medical History: History of dementia, history of hypertension, history of anemia, and history of failure to thrive. Past Surgical History: The patient is unable to provide any history, but she has a scar in the midline in her abdomen, which most likely for history of cholecystectomy, but I am not aware of the history and the patient is not able to provide history. HOME MEDICATIONS: 1. Amlodipine 10 mg p.o. daily. 2. Ascorbic acid 500 mg p.o. daily. 3. Colace 100 mg p.o. daily. 4. Aricept 10 mg p.o. daily. 5. Ferrous sulfate 325 mg p.o. daily. 6. Lorazepam 1 mg p.o. daily. 7. Magnesium oxide 1 tablet p.o. p.r.n. 8. Metoprolol 50 mg in the morning and 25 mg in the afternoon. 9. MVI 1 tablet p.o. daily. 10. 1 tablet p.o. daily. 11. Zinc sulfate 220 mg p.o. daily. 12. Tylenol 650 mg p.o. q.6 h. p.r.n. pain. SOCIAL HISTORY: Unable to obtain. REVIEW OF SYSTEMS: Unable to obtain. PHYSICAL EXAMINATION: GENERAL: The patient is an 81-year-old female, in no acute distress. Vital Signs: Temperature of 97 degrees, blood pressure of 122/50, pulse rate of 95, and respiratory rate of 18. Head and Neck: Bitemporal wasting. Extraocular movements intact. Sclerae are pale. Dry mucous membranes. LUNGS: Clear to auscultation. Cardiac: Regular rate and rhythm. S1 and S2. Positive murmur. No rub. ABDOMEN: Soft. She has a midline scar. EXTREMITIES: No edema. No clubbing. No cyanosis. NEUROLOGIC: The patient is oriented to name, otherwise, is confused. Laboratory Data: The patient has a WBC count of 14,000 on admission, hemoglobin of 11.9, hematocrit of , and platelet count of 272,000. Chemistry revealed sodium of 140, potassium of 4.3, chloride 100, bicarbonate 30, BUN of 24, and creatinine of , glucose of 134. Calcium of 8.4. AST of 16, ALT of 7, and alkaline phosphatase of 57. TSH is revealed specific gravity of 1.010, protein 2+, WBC 0 to 2, and RBC 0 to 2. ASSESSMENT: 1. Acute renal failure due to elevated with unstable hemodynamics. 2. 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 The other possibility of increasing creatinine for this patient . 3. History of multiple episodes of fall. 4. Dehydration. 5. Malnutrition. 6. Left hip fracture. Plan: Plan for the patient is to obtain random urine protein-creatinine ratio to calculate the proteinuria. Check the urine sodium and creatinine to calculate fractional excretion of sodium. I would start the patient on IV fluids with caloric count and evaluation of falling and monitoring electrolytes closely. I want to thank, Dr. Jong Jain, for allowing me to participate in the care of this patient. Luanne Gastelum M.D. DR: YIFAN JOB#: [id number] CC:
--- NOTE | 2017-03-03 10:00 | Pulmonology Progress Note ---
Assessment/Plan Assessment/Plan ASSESSMENT s/p mechanical fall left hip intertrochanteric fracture s/p ORIF L hip fracture 03/03 left hip pain HTN dementia severe protein calorie malnutrition,. anemia PLAN OF CARE MS floor ortho surgery follows cardiac clearance prior to surgery given ECHO with pEF 70-75% s/p ORIF today pain amangeemtn pain specialist follows DVT prophylaxis after surgery when surgeon recommend to start continue Aricept and Namenda BP management with BB and CCB, optimize as needed nephro follows ARF likely due to dehydration IVF avoid nephrotics, especially NSAID anemia w/up pending case discussed and evaluated by supervising physician Subjective Allergies: Coded Allergies: No Known Allergies (Unverified , 08/13/16) Subjective surgery earlier this am awake, Objective Last 24 Hour Vital Signs Date Time Temp Pulse Resp B/P (MAP) Pulse Ox O2 Delivery O2 Flow Rate FiO2 03/03/17 09:30 74 16 98/60 98 Nasal Cannula 2.0 03/03/17 09:20 98.0 70 20 107/49 96 Nasal Cannula 3.0 03/03/17 09:10 69 21 98/49 96 Nasal Cannula 3.0 03/03/17 08:55 73 18 96/51 100 Nasal Cannula 3.0 03/03/17 08:45 67 14 102/47 100 Nasal Cannula 3.0 03/03/17 08:35 66 15 124/56 100 Simple Mask 6.0 03/03/17 08:30 65 17 143/60 100 Simple Mask 6.0 03/03/17 08:29 64 20 98 03/03/17 08:22 98.4 67 13 147/65 100 Simple Mask 6.0 03/03/17 04:00 97.7 75 18 146/69 98 Room Air 03/03/17 00:00 98.8 68 18 130/81 96 Room Air 03/02/17 21:29 82 142/72 03/02/17 20:00 98.2 82 18 142/72 16 Room Air 03/02/17 12:00 97.4 70 14 137/61 95 Room Air Intake and Output 03/03/17 03/04/17 19:00 07:00 Intake Total 900 ml Output Total 170 ml Balance 730 ml IV Total 900 ml Output Urine Total 150 ml Estimated Blood Loss 20 ml General Appearance: no acute distress, cachetic, other - awake, confused, poorly but resposnive HEENT: anicteric Respiratory/Chest: lungs clear - with moderate air exchange , no accessory muscle use Cardiovascular: normal peripheral pulses, normal rate, regular rhythm, no JVD Abdomen: soft, non tender, non distended Extremities: no edema, pedal pulses normal Skin: other - left hip with dressing C/D/I Neurologic/Psychiatric: abnormal gait, alert, other - awake, alert, confused, Musculoskeletal: atrophy - BLE Microbiology Date/Time Source Procedure Growth Status 03/01/17 19:55 Blood Blood Culture - Preliminary NO GROWTH AFTER 24 HOURS Resulted 03/01/17 19:50 Blood Blood Culture - Preliminary NO GROWTH AFTER 24 HOURS Resulted 03/01/17 17:20 Rectum VRE Culture - Final NO VANCOMYCIN RESISTANT ENTEROCOCCUS ... Complete Current Medications Medications (Trade) Dose Ordered Sig/Brenda Route PRN Reason Start Time Stop Time Status Last Admin Dose Admin Acetaminophen (Tylenol) 650 mg Q4H PRN ORAL fever 03/01/17 14:00 03/31/17 13:59 Acetaminophen (Tylenol) 650 mg Q4H PRN ORAL Mild Pain (Pain Scale 1-3) 03/03/17 07:15 04/02/17 07:14 UNV Acetaminophen/ Hydrocodone Bitart ([place] 7.5/325) 1 ea Q4H PRN ORAL Moderate Pain (Pain Scale 4-6) 03/03/17 07:15 03/10/17 07:14 UNV Al Hydroxide/Mg Hydroxide (Mylanta II) 30 ml Q6H PRN ORAL dyspepsia 03/01/17 14:00 03/31/17 13:59 Amlodipine Besylate (Norvasc) 10 mg DAILY ORAL 03/01/17 15:00 03/31/17 14:59 03/02/17 09:20 Bisacodyl (Dulcolax) 10 mg Q12H PRN RECTAL Constipation 03/03/17 07:15 04/02/17 07:14 UNV Cefazolin Sodium 2 gm/Dextrose 110 ml @ 220 mls/hr EVERY 8 HOURS IV 03/03/17 14:00 03/03/17 22:29 UNV Dextrose (Dextrose 50%) STAT PRN IV Hypoglycemia 03/01/17 14:00 03/31/17 13:59 Dextrose/ Electrolytes 1,000 ml @ 75 mls/hr [id number] IV 03/03/17 07:04 04/02/17 07:03 UNV Dextrose/Sodium Chloride 1,000 ml @ 50 mls/hr Q20H IV 03/01/17 13:53 03/31/17 13:52 03/03/17 05:46 Diphenhydramine HCl (Benadryl) 25 mg Q15M PRN IVP Itching 03/03/17 08:00 03/03/17 13:00 Docusate Sodium (Colace) 100 mg THREE TIMES A DAY ORAL 03/03/17 09:00 04/02/17 08:59 UNV Donepezil HCl (Aricept) 10 mg DAILY ORAL 03/02/17 09:00 04/01/17 08:59 03/02/17 09:20 Enoxaparin Sodium (Lovenox) 30 mg DAILY SUBQ 03/03/17 09:00 03/13/17 08:59 UNV Fentanyl Citrate (Sublimaze 100 mcg/2 mL) 25 mcg Q10M PRN IV Moderate Pain (Pain Scale 4-6) 03/03/17 08:00 03/03/17 13:00 Ferrous Sulfate (Feosol) 325 mg THREE TIMES A DAY ORAL 03/03/17 09:00 04/02/17 08:59 UNV Heparin Sodium (Porcine) (Heparin 5000 units/ml) 5,000 units EVERY 12 HOURS SUBQ 03/01/17 21:00 03/31/17 20:59 03/02/17 21:30 Hydromorphone HCl (Dilaudid) 1 mg Q4H PRN SUBQ Mild Pain (Pain Scale 1-3) 03/03/17 07:15 03/10/17 07:14 UNV Lactated Ringer's 1,000 ml @ 10 mls/hr Q24H IVLG 03/03/17 07:58 03/03/17 13:00 Lidocaine (Lidoderm 5% PATCH) 1 patch DAILY TDERMAL 03/02/17 11:00 04/01/17 10:59 03/02/17 12:48 Lorazepam (Ativan 2mg/ml 1ml) 0.5 mg Q4H PRN IV For Anxiety 03/01/17 14:00 03/08/17 13:59 Memantine (Namenda) 5 mg BID ORAL 03/02/17 09:00 04/01/17 08:59 03/02/17 17:42 Metoprolol Tartrate (Lopressor) 25 mg EVERY 12 HOURS ORAL 03/01/17 21:00 03/31/17 20:59 03/02/17 21:29 Morphine Sulfate (Morphine Sulfate) 2 mg EVERY 4 HOURS PRN IVP For Pain 4-6 03/01/17 14:00 03/08/17 13:59 03/02/17 14:18 Morphine Sulfate (Morphine Sulfate) 4 mg Q4H PRN IVP For Pain 7-10 03/01/17 14:00 03/08/17 13:59 Ondansetron HCl (Zofran) 4 mg Q1H PRN IVP Nausea & Vomiting 03/03/17 08:00 03/03/17 13:00 Ondansetron HCl (Zofran) 4 mg Q6H PRN IVP Nausea & Vomiting 03/01/17 14:00 03/31/17 13:59 Polyethylene Glycol (Miralax) 17 gm HSPRN PRN ORAL Constipation 03/01/17 14:00 03/31/17 13:59 Risperidone (RisperDAL) 1 mg BID ORAL 03/01/17 18:00 03/31/17 17:59 03/02/17 17:42 Zolpidem Tartrate (Ambien) 5 mg HSPRN PRN ORAL Insomnia 03/01/17 14:00 03/08/17 13:59 Mandy Aviles NP (Vanchtein) Mar 03, 2017 10:00
--- NOTE | 2017-03-03 10:07 | Nephrology Progress Note ---
Assessment/Plan Assessment 1. Acute renal failure.resolved 2. left hip fracture 3. Failure to thrive now pt has good appetite 4. Dehydration. 5.HTN Plan Plan continue iv US of kidney monitoring electrolyte avoid NSAID Subjective Constitutional: Reports: no symptoms HEENT: Reports: no symptoms Genitourinary: Reports: no symptoms Neurologic/Psychiatric: Reports: no symptoms Subjective s/p left ORIF Objective Objective Last 24 Hour Vital Signs Date Time Temp Pulse Resp B/P (MAP) Pulse Ox O2 Delivery O2 Flow Rate FiO2 03/03/17 09:30 74 16 98/60 98 Nasal Cannula 2.0 03/03/17 09:20 98.0 70 20 107/49 96 Nasal Cannula 3.0 03/03/17 09:10 69 21 98/49 96 Nasal Cannula 3.0 03/03/17 08:55 73 18 96/51 100 Nasal Cannula 3.0 03/03/17 08:45 67 14 102/47 100 Nasal Cannula 3.0 03/03/17 08:35 66 15 124/56 100 Simple Mask 6.0 03/03/17 08:30 65 17 143/60 100 Simple Mask 6.0 03/03/17 08:29 64 20 98 03/03/17 08:22 98.4 67 13 147/65 100 Simple Mask 6.0 03/03/17 04:00 97.7 75 18 146/69 98 Room Air 03/03/17 00:00 98.8 68 18 130/81 96 Room Air 03/02/17 21:29 82 142/72 03/02/17 20:00 98.2 82 18 142/72 16 Room Air 03/02/17 12:00 97.4 70 14 137/61 95 Room Air Intake and Output 03/03/17 03/04/17 19:00 07:00 Intake Total 900 ml Output Total 170 ml Balance 730 ml IV Total 900 ml Output Urine Total 150 ml Estimated Blood Loss 20 ml Height (Feet): 5 Height (Inches): 0.00 Weight (Pounds): 100 Objective HEAD AND NECK: No JVP. No LAD. Bitemporal wasting. Extraocular movement intact. Pupils are reactive to light and accommodation. LUNGS: Decreased breathing sound on the both sides. CARDIAC: Regular rate and rhythm. S1 and S2. No murmur or rub. ABDOMEN: Soft, nontender, and nondistended. EXTREMITIES: Trace edema. No clubbing. No cyanosis. CARLTON MAYO Mar 03, 2017 10:07
[2017-03-03 10:32] LABS: MEAN CORPUSCULAR HEMOGLOBIN 29.7 PG (27.0-31.0); MEAN CORPUSCULAR HGB CONC 31.5 G/DL (32.0-36.0); MEAN CORPUSCULAR VOLUME 94 FL (80-99); PLATELET COUNT 183 K/UL (150-450); RED BLOOD COUNT 3.11 M/UL (4.20-5.40); RED CELL DISTRIBUTION WIDTH 13.1 % (11.6-14.8); WHITE BLOOD COUNT 11.9 K/UL (4.8-10.8)
[2017-03-03 10:54] LABS: PROTHROMBIN TIME 10.2 SEC (9.30-11.50)
[2017-03-03] MEDS ORDERED: HYDROmorphone 1mg/ml Carpuject SUBQ PRN (11:00)
[2017-03-03 11:17] LABS: BAND NEUTROPHILS % (MANUAL) 2 % (0-8); LYMPHOCYTES % (MANUAL) 12 % (20-45); NEUTROPHILS % (MANUAL) 79 % (45-75); TOTAL CELLS COUNTED 100
[2017-03-03 11:19] LABS: BASOPHILS % (MANUAL) 0 % (0-2); EOSINOPHILS % (MANUAL) 0 % (0-3); MICROCYTES 1+; PLATELET ESTIMATE ADEQUATE; PLATELET MORPHOLOGY NORMAL
[2017-03-03 11:20] LABS: HYPOCHROMASIA 1+
[2017-03-03 11:41] LABS: PATH BLOOD SMEAR/OMC SENT TO PATHOLOGIST; RETICULOCYTE COUNT 1.5 % (0.0-2.0)
[2017-03-03 11:49] LABS: ERYTHROCYTE SEDIMENTATION RATE 74 MM/HR (0-42)
--- NOTE | 2017-03-03 12:14 | Diagnostic Imaging Report ---
Indication: FX left hip fracture, intraoperative Technique: Digital intraoperative images Comparison: 03/01/2017 Findings: Intraoperative images demonstrate surgical reduction of previously demonstrated intertrochanteric fracture with medullary jesus and compression screw Impression: Intraoperative imaging, as described
[2017-03-03] MEDS: D5 1/2NS w/KCl 20mEq 1,000 ML IV SCH (12:21)
--- NOTE | 2017-03-03 12:39 | Diagnostic Imaging Report ---
Indication: POST-OP left hip pain, fracture Technique: One view of the pelvis Comparison: 03/01/2017 Findings: Interim surgical repair of left hip fracture with medullary jesus and compression screw. Hardware fracture appear well aligned. Retained air from the surgical exposure seen within the soft tissues Impression: Postoperative left hip. No unusual features
[2017-03-03] MEDS: Donepezil 10mg tab ORAL SCH (13:24)
[2017-03-03] MEDS: Memantine 5 MG TAB ORAL SCH ×2 (13:24→18:00)
[2017-03-03] MEDS: Docusate 100mg cap ORAL SCH ×2 (13:24→17:59)
[2017-03-03] MEDS: Metoprolol 25mg tab ORAL SCH ×2 (13:24→21:22)
[2017-03-03] MEDS ORDERED: ceFAZolin sod 2 GM in D5W 110 ML IV SCH (15:30)
[2017-03-03] MEDS: ceFAZolin 2gm/50 ML IV SCH ×2 (15:42→22:58)
--- NOTE | 2017-03-03 17:27 | Infectious Diseases Prog Note ---
Assessment/Plan Problems: (1) Leukocytosis Assessment & Plan: rule out sepsis, blood culture is negative , monitor WBC. (2) Fracture of left hip Assessment & Plan: S/P ORIF , ortho is following (3) Hematoma of left hip Assessment & Plan: due to left hip fracture, ortho is following, monitor H/H , transfuse blood as needed Subjective ROS Limited/Unobtainable: Yes Allergies: Coded Allergies: No Known Allergies (Unverified , 08/13/16) Objective Vital Signs Last 24 Hour Vital Signs Date Time Temp Pulse Resp B/P (MAP) Pulse Ox O2 Delivery O2 Flow Rate FiO2 03/03/17 16:00 97.0 71 18 141/60 97 Nasal Cannula 3.0 03/03/17 13:24 67 155/47 03/03/17 13:24 67 155/47 03/03/17 12:00 96.7 67 18 155/47 96 Nasal Cannula 3.0 03/03/17 09:35 97.4 03/03/17 09:30 74 16 98/60 98 Nasal Cannula 2.0 03/03/17 09:20 98.0 70 20 107/49 96 Nasal Cannula 3.0 03/03/17 09:10 69 21 98/49 96 Nasal Cannula 3.0 03/03/17 08:55 73 18 96/51 100 Nasal Cannula 3.0 03/03/17 08:45 67 14 102/47 100 Nasal Cannula 3.0 03/03/17 08:35 66 15 124/56 100 Simple Mask 6.0 03/03/17 08:30 65 17 143/60 100 Simple Mask 6.0 03/03/17 08:29 64 20 98 03/03/17 08:22 98.4 67 13 147/65 100 Simple Mask 6.0 03/03/17 04:00 97.7 75 18 146/69 98 Room Air 03/03/17 00:00 98.8 68 18 130/81 96 Room Air 03/02/17 21:29 82 142/72 03/02/17 20:00 98.2 82 18 142/72 16 Room Air Height (Feet): 5 Height (Inches): 0.00 Weight (Pounds): 100 General Appearance: WD/WN, no acute distress HEENT: normocephalic, atraumatic, anicteric, mucous membranes moist Respiratory/Chest: chest wall non-tender, lungs clear, normal breath sounds, no respiratory distress, no accessory muscle use Cardiovascular: normal peripheral pulses, normal rate, regular rhythm, no gallop/murmur, no JVD Abdomen: normal bowel sounds, soft, non tender, no organomegaly, non distended , no mass, no scars Extremities: no cyanosis, no clubbing Skin: no rash, no lesions, no ulcers Microbiology Date/Time Source Procedure Growth Status 03/01/17 19:55 Blood Blood Culture - Preliminary NO GROWTH AFTER 24 HOURS Resulted 03/01/17 19:50 Blood Blood Culture - Preliminary NO GROWTH AFTER 24 HOURS Resulted 03/01/17 17:20 Nasal Nares MRSA Culture - Final NO METHICILLIN RESISTANT STAPH AUREUS... Complete 03/01/17 17:20 Rectum VRE Culture - Final NO VANCOMYCIN RESISTANT ENTEROCOCCUS ... Complete Laboratory Tests Test 03/03/17 10:10 White Blood Count 11.9 K/UL (4.8-10.8) H Red Blood Count 3.11 M/UL (4.20-5.40) L Hemoglobin 9.2 G/DL (12.0-16.0) L Hematocrit 29.3 % (37.0-47.0) L Mean Corpuscular Volume 94 FL (80-99) Mean Corpuscular Hemoglobin 29.7 PG (27.0-31.0) Mean Corpuscular Hemoglobin Concent 31.5 G/DL (32.0-36.0) L Red Cell Distribution Width 13.1 % (11.6-14.8) Platelet Count 183 K/UL (150-450) Mean Platelet Volume 8.0 FL (6.5-10.1) Neutrophils (%) (Auto) % (45.0-75.0) Lymphocytes (%) (Auto) % (20.0-45.0) Monocytes (%) (Auto) % (1.0-10.0) Eosinophils (%) (Auto) % (0.0-3.0) Basophils (%) (Auto) % (0.0-2.0) Differential Total Cells Counted 100 Neutrophils % (Manual) 79 % (45-75) H Lymphocytes % (Manual) 12 % (20-45) L Monocytes % (Manual) 7 % (1-10) Eosinophils % (Manual) 0 % (0-3) Basophils % (Manual) 0 % (0-2) Band Neutrophils 2 % (0-8) Platelet Estimate Adequate Platelet Morphology Normal Hypochromasia 1+ Microcytosis 1+ Erythrocyte Sedimentation Rate 74 MM/HR (0-42) H Reticulocyte Count 1.5 % (0.0-2.0) Prothrombin Time 10.2 SEC (9.30-11.50) Prothromb Time International Ratio 1.0 (0.9-1.1) Activated Partial Thromboplast Time 26 SEC (23-33) Iron Level 25 ug/dL (37-145) L Total Iron Binding Capacity 214 ug/dL (250-400) L Percent Iron Saturation 12 % (15-50) L Unsaturated Iron Binding 189 ug/dL (112-346) Lactate Dehydrogenase 257 U/L (135-230) H Carcinoembryonic Antigen 2.1 ng/mL Vitamin B12 Level 332 pg/mL (211-946) Folate Pending Current Medications Medications (Trade) Dose Ordered Sig/Brenda Route PRN Reason Start Time Stop Time Status Last Admin Dose Admin Acetaminophen (Tylenol) 650 mg Q4H PRN ORAL fever 03/01/17 14:00 03/31/17 13:59 Acetaminophen (Tylenol) 650 mg Q4H PRN ORAL Mild Pain (Pain Scale 1-3) 03/03/17 11:00 04/02/17 10:59 Acetaminophen/ Hydrocodone Bitart ([place] 7.5/325) 1 ea Q4H PRN ORAL Moderate Pain (Pain Scale 4-6) 03/03/17 11:00 03/10/17 10:59 Al Hydroxide/Mg Hydroxide (Mylanta II) 30 ml Q6H PRN ORAL dyspepsia 03/01/17 14:00 03/31/17 13:59 Amlodipine Besylate (Norvasc) 10 mg DAILY ORAL 03/01/17 15:00 03/31/17 14:59 03/03/17 13:24 Bisacodyl (Dulcolax) 10 mg Q12H PRN RECTAL Constipation 03/03/17 11:00 04/02/17 10:59 Cefazolin Sodium 50 ml @ 100 mls/hr Q8H IV 03/03/17 15:30 03/03/17 23:59 03/03/17 15:42 Dextrose (Dextrose 50%) STAT PRN IV Hypoglycemia 03/01/17 14:00 03/31/17 13:59 Dextrose/ Electrolytes 1,000 ml @ 75 mls/hr [id number] IV 03/03/17 12:00 04/02/17 11:59 03/03/17 12:21 Docusate Sodium (Colace) 100 mg THREE TIMES A DAY ORAL 03/03/17 13:00 04/02/17 12:59 03/03/17 13:24 Donepezil HCl (Aricept) 10 mg DAILY ORAL 03/02/17 09:00 04/01/17 08:59 03/03/17 13:24 Enoxaparin Sodium (Lovenox) 30 mg DAILY SUBQ 03/04/17 09:00 04/03/17 08:59 Ferrous Sulfate (Feosol) 325 mg THREE TIMES A DAY ORAL 03/03/17 13:00 04/02/17 12:59 03/03/17 13:24 Hydromorphone HCl (Dilaudid) 1 mg Q4H PRN SUBQ Severe Pain (Pain Scale 7-10) 03/03/17 11:00 03/10/17 10:59 Lidocaine (Lidoderm 5% PATCH) 1 patch DAILY TDERMAL 03/02/17 11:00 04/01/17 10:59 03/02/17 12:48 Lorazepam (Ativan 2mg/ml 1ml) 0.5 mg Q4H PRN IV For Anxiety 03/01/17 14:00 03/08/17 13:59 Memantine (Namenda) 5 mg BID ORAL 03/02/17 09:00 04/01/17 08:59 03/03/17 13:24 Metoprolol Tartrate (Lopressor) 25 mg EVERY 12 HOURS ORAL 03/01/17 21:00 03/31/17 20:59 03/03/17 13:24 Ondansetron HCl (Zofran) 4 mg Q6H PRN IVP Nausea & Vomiting 03/01/17 14:00 03/31/17 13:59 Polyethylene Glycol (Miralax) 17 gm HSPRN PRN ORAL Constipation 03/01/17 14:00 03/31/17 13:59 Risperidone (RisperDAL) 1 mg BID ORAL 03/01/17 18:00 03/31/17 17:59 03/03/17 13:27 Zolpidem Tartrate (Ambien) 5 mg HSPRN PRN ORAL Insomnia 03/01/17 14:00 03/08/17 13:59 Charis Dominguez M.D. Mar 03, 2017 17:27
--- NOTE | 2017-03-03 20:30 | Operative Note - Dictated ---
DATE OF OPERATION: 03/03/2017 PREOPERATIVE DIAGNOSIS: Left hip intertrochanteric fracture. POSTOPERATIVE DIAGNOSIS: Left hip intertrochanteric fracture. Procedure: Left hip open reduction and internal fixation with short gamma nail with 125-degree angle with 95 mm lag screw. SURGEON: Josiah Barney M.D. [employer] COUNTER MANAGER: Cathleen Holly PA-C. ANESTHESIOLOGIST: Truong Hansen M.D. ANESTHESIA: Spinal anesthesia. ESTIMATED BLOOD LOSS: Less than 100 mL. COMPLICATIONS: None. Brief History: The patient is a pleasant 81-year-old female, who sustained a left hip fracture. She was admitted to the hospital and after full discussion of the risks and benefits of the surgery and complications associated with it including infection, bleeding, neurovascular complication, possible malunion, possible nonunion, possible need for further surgical intervention down the line, and hardware failure as well as inability to walk down the line, the patient and family opted for surgical treatment. Operative Procedure: The patient was brought to the operating table and was placed supine. All pressure points were well padded. Spinal anesthesia was induced and the patient was placed on the fracture table with left leg in traction and right leg in well-leg watters. The left hip was prepped and draped in usual sterile fashion and an incision was made just proximal to the trochanter. The incision was taken through the gluteal fascia. The trochanter could be palpated. Using the image intensifier, the entry point to the trochanter was checked and rechecked and entry was obtained. The entry point was made. Once entry was made into the trochanter, position of the entry was checked on AP and lateral, appeared to be perfect. At this point, a drill was used to open up the proximal trochanter and a short gamma 125-degree nail was placed. The reduction appeared to be excellent. This was both on AP and lateral. At this point using a guide, a guidepin was placed through the lateral into the nail of the neck and into the head. The position was checked on AP and lateral, appeared to be central, and the pin was advanced to subchondral bone of the femoral head. Once this was completed, the position was checked on AP and lateral, appeared to be perfect. The measurements were made and 95 mm measurement appeared to be the right size. Drilling was performed and a 95 mm lag screw was placed without any complication. The lag screw was then locked with a compression screw and the screw was then backed up by half a turn. This provided excellent stability. The guides were removed. Wounds were thoroughly irrigated. All x-rays were obtained on AP and lateral view and the reduction was perfect. Wounds were thoroughly irrigated using copious amount of fluid. Subcutaneous tissue was closed using 2-0 Vicryl sutures. Gluteal muscles were closed using #1 Vicryl suture prior to subcutaneous closure. Skin was closed using 3-0 Monocryl suture. Sterile dressing was applied and Steri-Strips were applied. The patient was taken to recovery room in stable condition. Josiah Barney M.D. DR: DELANEY JOB#: [id number] CC: SOFI
[2017-03-04] VITALS: BP 118/53
[2017-03-04] MEDS: D5 1/2NS w/KCl 20mEq 1,000 ML IV SCH ×2 (02:00→14:08)
[2017-03-04 04:00] VITALS: BP 132/52
[2017-03-04 06:59] LABS: ANION GAP 9 (5-15); CALCIUM 8.1 mg/dL (8.6-10.2); CARBON DIOXIDE 26 mEQ/L (20-30); CHLORIDE 103 mEQ/L (98-107); HEMOLYSIS 1; POTASSIUM 4.2 mEQ/L (3.4-4.9); SODIUM 138 mEQ/L (135-145)
[2017-03-04 08:49] VITALS: BP 115/56
[2017-03-04] MEDS: Docusate 100mg cap ORAL SCH ×3 (09:01→17:35)
[2017-03-04] MEDS: Donepezil 10mg tab ORAL SCH (09:01)
[2017-03-04] MEDS: Memantine 5 MG TAB ORAL SCH ×2 (09:01→17:36)
[2017-03-04] MEDS: Metoprolol 25mg tab ORAL SCH ×2 (09:02→21:29)
[2017-03-04] MEDS: Enoxaparin 30mg Inj SUBQ SCH (09:03)
[2017-03-04] MEDS ORDERED: D5 1/2NS 1000ml IV ONE (10:41)
[2017-03-04] MEDS ORDERED: Tubing IV Secondary IV ONE (10:41)
--- NOTE | 2017-03-04 11:04 | Pulmonology Progress Note ---
Assessment/Plan Assessment/Plan ASSESSMENT s/p mechanical fall left hip intertrochanteric fracture s/p ORIF L hip fracture 03/03 left hip pain HTN dementia severe protein calorie malnutrition,. anemia of chronic disease elevated TSH PLAN OF CARE MS floor ortho surgery follows cardiac clearance prior to surgery given ECHO with pEF 70-75% s/p ORIF 03/03 pain amangeemtn pain specialist follows DVT prophylaxis PT/OT fall precautions continue Aricept and Namenda BP management with BB and CCB, optimize as needed nephro follows ARF likely due to dehydration IVF avoid nephrotics, especially NSAID anemia w/up c/w anemia of chronic disease elevated TSH, check free T4 case discussed and evaluated by supervising physician Subjective Allergies: Coded Allergies: No Known Allergies (Unverified , 08/13/16) Subjective sitting in the chair no c/o pain no signs of distress Objective Last 24 Hour Vital Signs Date Time Temp Pulse Resp B/P (MAP) Pulse Ox O2 Delivery O2 Flow Rate FiO2 03/04/17 09:02 90 115/56 03/04/17 09:02 90 115/56 03/04/17 08:49 98.0 90 18 115/56 93 Room Air 03/04/17 04:00 98.1 86 20 132/52 92 Room Air 03/04/17 00:00 98.2 88 18 118/53 95 Room Air 03/03/17 21:22 84 121/60 03/03/17 20:00 98.5 74 20 116/58 93 Room Air 03/03/17 16:00 97.0 71 18 141/60 97 Nasal Cannula 3.0 03/03/17 13:24 67 155/47 03/03/17 13:24 67 155/47 03/03/17 12:00 96.7 67 18 155/47 96 Nasal Cannula 3.0 Intake and Output 03/04/17 03/05/17 19:00 07:00 Intake Total 255 ml Balance 255 ml Intake Oral 180 ml IV Total 75 ml # Bowel Movements 4 Objective General Appearance: no acute distress, cachetic, other - awake, confused, poorly but resposnive HEENT: anicteric Respiratory/Chest: lungs clear - with moderate air exchange , no accessory muscle use Cardiovascular: normal peripheral pulses, normal rate, regular rhythm, no JVD Abdomen: soft, non tender, non distended Extremities: no edema, pedal pulses normal Skin: left hip with dressing C/D/I Neurologic/Psychiatric: abnormal gait, alert, awake, alert, confused, Musculoskeletal: left hip with dressing, atrophy BLE Microbiology Date/Time Source Procedure Growth Status 03/01/17 19:55 Blood Blood Culture - Preliminary NO GROWTH AFTER 48 HOURS Resulted 03/01/17 19:50 Blood Blood Culture - Preliminary NO GROWTH AFTER 48 HOURS Resulted 03/01/17 17:20 Nasal Nares MRSA Culture - Final NO METHICILLIN RESISTANT STAPH AUREUS... Complete 03/01/17 17:20 Rectum VRE Culture - Final NO VANCOMYCIN RESISTANT ENTEROCOCCUS ... Complete Laboratory Tests 03/04/17 06:05: Sodium Level 138, Potassium Level 4.2, Chloride Level 103, Carbon Dioxide Level 26, Anion Gap 9, Blood Urea Nitrogen 16, Creatinine 1.0H, Estimat Glomerular Filtration Rate , Glucose Level 133H, Calcium Level 8.1L Current Medications Medications (Trade) Dose Ordered Sig/Brenda Route PRN Reason Start Time Stop Time Status Last Admin Dose Admin Acetaminophen (Tylenol) 650 mg Q4H PRN ORAL fever 03/01/17 14:00 03/31/17 13:59 Acetaminophen (Tylenol) 650 mg Q4H PRN ORAL Mild Pain (Pain Scale 1-3) 03/03/17 11:00 04/02/17 10:59 Acetaminophen/ Hydrocodone Bitart ([place] 7.5/325) 1 ea Q4H PRN ORAL Moderate Pain (Pain Scale 4-6) 03/03/17 11:00 03/10/17 10:59 Al Hydroxide/Mg Hydroxide (Mylanta II) 30 ml Q6H PRN ORAL dyspepsia 03/01/17 14:00 03/31/17 13:59 Amlodipine Besylate (Norvasc) 10 mg DAILY ORAL 03/01/17 15:00 03/31/17 14:59 03/04/17 09:02 Bisacodyl (Dulcolax) 10 mg Q12H PRN RECTAL Constipation 03/03/17 11:00 04/02/17 10:59 Dextrose (Dextrose 50%) STAT PRN IV Hypoglycemia 03/01/17 14:00 03/31/17 13:59 Dextrose/ Electrolytes 1,000 ml @ 75 mls/hr [id number] IV 03/03/17 12:00 04/02/17 11:59 03/04/17 02:00 Docusate Sodium (Colace) 100 mg THREE TIMES A DAY ORAL 03/03/17 13:00 04/02/17 12:59 03/04/17 09:01 Donepezil HCl (Aricept) 10 mg DAILY ORAL 03/02/17 09:00 04/01/17 08:59 03/04/17 09:01 Enoxaparin Sodium (Lovenox) 30 mg DAILY SUBQ 03/04/17 09:00 04/03/17 08:59 03/04/17 09:03 Ferrous Sulfate (Feosol) 325 mg THREE TIMES A DAY ORAL 03/03/17 13:00 04/02/17 12:59 03/04/17 09:01 Hydromorphone HCl (Dilaudid) 1 mg Q4H PRN SUBQ Severe Pain (Pain Scale 7-10) 03/03/17 11:00 03/10/17 10:59 Lidocaine (Lidoderm 5% PATCH) 1 patch DAILY TDERMAL 03/02/17 11:00 04/01/17 10:59 03/04/17 09:03 Lorazepam (Ativan 2mg/ml 1ml) 0.5 mg Q4H PRN IV For Anxiety 03/01/17 14:00 03/08/17 13:59 Memantine (Namenda) 5 mg BID ORAL 03/02/17 09:00 04/01/17 08:59 03/04/17 09:01 Metoprolol Tartrate (Lopressor) 25 mg EVERY 12 HOURS ORAL 03/01/17 21:00 03/31/17 20:59 03/04/17 09:02 Ondansetron HCl (Zofran) 4 mg Q6H PRN IVP Nausea & Vomiting 03/01/17 14:00 03/31/17 13:59 Polyethylene Glycol (Miralax) 17 gm HSPRN PRN ORAL Constipation 03/01/17 14:00 03/31/17 13:59 Risperidone (RisperDAL) 1 mg BID ORAL 03/01/17 18:00 03/31/17 17:59 03/04/17 09:02 Zolpidem Tartrate (Ambien) 5 mg HSPRN PRN ORAL Insomnia 03/01/17 14:00 03/08/17 13:59 Aviles (Vanchtein),Mandy HATCH Mar 04, 2017 11:04
[2017-03-04 12:00] VITALS: BP 112/51
--- NOTE | 2017-03-04 13:37 | General Progress Note ---
Assessment/Plan Problem List: (1) ATN (acute tubular necrosis) ICD Codes: N17.0 - Acute kidney failure with tubular necrosis SNOMED: 35524927 (2) Fall ICD Codes: W19.XXXA - Unspecified fall, initial encounter SNOMED: 2410844, 600888864 Qualifiers: Qualified Codes: W19.XXXA - Unspecified fall, initial encounter (3) Fracture, intertrochanteric, left femur ICD Codes: S72.142A - Displaced intertrochanteric fracture of left femur, initial encounter for closed fracture SNOMED: 033721269, 936382041 Qualifiers: Qualified Codes: S72.145A - Nondisplaced intertrochanteric fracture of left femur, initial encounter for closed fracture (4) Encephalopathy ICD Codes: G93.40 - Encephalopathy, unspecified SNOMED: 78684102, 117350692 Status: stable, progressing, tolerating diet Assessment/Plan ot pt diet cbc bmp am dc plan Subjective Constitutional: Reports: weakness Allergies: Coded Allergies: No Known Allergies (Unverified , 08/13/16) All Systems: reviewed and negative except above Subjective sleepy calm s/p hip sx Objective Last 24 Hour Vital Signs Date Time Temp Pulse Resp B/P (MAP) Pulse Ox O2 Delivery O2 Flow Rate FiO2 03/04/17 09:02 90 115/56 03/04/17 09:02 90 115/56 03/04/17 08:49 98.0 90 18 115/56 93 Room Air 03/04/17 04:00 98.1 86 20 132/52 92 Room Air 03/04/17 00:00 98.2 88 18 118/53 95 Room Air 03/03/17 21:22 84 121/60 03/03/17 20:00 98.5 74 20 116/58 93 Room Air 03/03/17 16:00 97.0 71 18 141/60 97 Nasal Cannula 3.0 Intake and Output 03/04/17 03/05/17 19:00 07:00 Intake Total 630 ml Balance 630 ml Intake Oral 180 ml IV Total 450 ml # Bowel Movements 4 Laboratory Tests 03/04/17 06:05: Sodium Level 138, Potassium Level 4.2, Chloride Level 103, Carbon Dioxide Level 26, Anion Gap 9, Blood Urea Nitrogen 16, Creatinine 1.0H, Estimat Glomerular Filtration Rate , Glucose Level 133H, Calcium Level 8.1L Height (Feet): 5 Height (Inches): 0.00 Weight (Pounds): 100 General Appearance: lethargic, confused EENT: normal ENT inspection Neck: normal alignment Cardiovascular: normal peripheral pulses, normal rate, regular rhythm Respiratory/Chest: chest wall non-tender, lungs clear, normal breath sounds Abdomen: normal bowel sounds, non tender, soft Extremities: normal inspection Edema: no edema noted Arm (L), no edema noted Arm (R), no edema noted Leg (L), no edema noted Leg (R), no edema noted Pedal (L), no edema noted Pedal (R), no edema noted Generalized Neurologic: motor weakness Skin: normal pigmentation, warm/dry RAIZA PATINO Mar 04, 2017 13:37
--- NOTE | 2017-03-04 14:12 | Orthopedic Progress Note ---
Orthopedic - Progress Note Subjective Symptoms: c/o post-op hip pain Objective Vital Signs Last 24 Hour Vital Signs Date Time Temp Pulse Resp B/P (MAP) Pulse Ox O2 Delivery O2 Flow Rate FiO2 03/04/17 12:00 98.1 78 18 112/51 96 Room Air 03/04/17 09:02 90 115/56 03/04/17 09:02 90 115/56 03/04/17 08:49 98.0 90 18 115/56 93 Room Air 03/04/17 04:00 98.1 86 20 132/52 92 Room Air 03/04/17 00:00 98.2 88 18 118/53 95 Room Air 03/03/17 21:22 84 121/60 03/03/17 20:00 98.5 74 20 116/58 93 Room Air 03/03/17 16:00 97.0 71 18 141/60 97 Nasal Cannula 3.0 I&O Intake and Output 03/04/17 03/05/17 19:00 07:00 Intake Total 810 ml Balance 810 ml Intake Oral 360 ml IV Total 450 ml # Bowel Movements 4 Wound: clean, dry Drains: none Neuro Status: normal Vascular Status: normal Assessment Post-op Diagnosis doing well s/p Left hip ORIf with gamma nail Plan Plan: PT, discharge plan Additional Comments Monitor Hgb Ok to d/c to rehab one medically stable. Follow up with me in 3 weeks Dressing changes DVT prophylaxis per medicine VIVEK CLIFFORD Mar 04, 2017 14:12
[2017-03-04 16:45] VITALS: BP 117/71
--- NOTE | 2017-03-04 17:42 | Infectious Diseases Prog Note ---
Assessment/Plan Problems: (1) Leukocytosis Assessment & Plan: rule out sepsis, blood culture is negative , monitor WBC. (2) Fracture of left hip Assessment & Plan: S/P surgical repair , ortho is following (3) Hematoma of left hip Assessment & Plan: due to left hip fracture, ortho is following, monitor H/H , transfuse blood as needed Subjective ROS Limited/Unobtainable: Yes Allergies: Coded Allergies: No Known Allergies (Unverified , 08/13/16) Objective Vital Signs Last 24 Hour Vital Signs Date Time Temp Pulse Resp B/P (MAP) Pulse Ox O2 Delivery O2 Flow Rate FiO2 03/04/17 16:45 98.5 82 17 117/71 96 Room Air 03/04/17 12:00 98.1 78 18 112/51 96 Room Air 03/04/17 09:02 90 115/56 03/04/17 09:02 90 115/56 03/04/17 08:49 98.0 90 18 115/56 93 Room Air 03/04/17 04:00 98.1 86 20 132/52 92 Room Air 03/04/17 00:00 98.2 88 18 118/53 95 Room Air 03/03/17 21:22 84 121/60 03/03/17 20:00 98.5 74 20 116/58 93 Room Air Height (Feet): 5 Height (Inches): 0.00 Weight (Pounds): 100 General Appearance: WD/WN, no acute distress, cachetic HEENT: normocephalic, atraumatic, anicteric, mucous membranes moist Respiratory/Chest: chest wall non-tender, lungs clear, normal breath sounds Cardiovascular: normal peripheral pulses, normal rate, regular rhythm Abdomen: normal bowel sounds, soft, non tender, no organomegaly, non distended , no mass Extremities: no cyanosis, no clubbing Microbiology Date/Time Source Procedure Growth Status 03/01/17 19:55 Blood Blood Culture - Preliminary NO GROWTH AFTER 48 HOURS Resulted 03/01/17 19:50 Blood Blood Culture - Preliminary NO GROWTH AFTER 48 HOURS Resulted Laboratory Tests Test 03/04/17 06:05 Sodium Level 138 mEQ/L (135-145) Potassium Level 4.2 mEQ/L (3.4-4.9) Chloride Level 103 mEQ/L (98-107) Carbon Dioxide Level 26 mEQ/L (20-30) Anion Gap 9 (5-15) Blood Urea Nitrogen 16 mg/dL (7-23) Creatinine 1.0 mg/dL (0.5-0.9) H Estimat Glomerular Filtration Rate mL/min (>60) Glucose Level 133 mg/dL (74-106) H Calcium Level 8.1 mg/dL (8.6-10.2) L Current Medications Medications (Trade) Dose Ordered Sig/Brenda Route PRN Reason Start Time Stop Time Status Last Admin Dose Admin Acetaminophen (Tylenol) 650 mg Q4H PRN ORAL fever 03/01/17 14:00 03/31/17 13:59 Acetaminophen (Tylenol) 650 mg Q4H PRN ORAL Mild Pain (Pain Scale 1-3) 03/03/17 11:00 04/02/17 10:59 Acetaminophen/ Hydrocodone Bitart ([place] 7.5/325) 1 ea Q4H PRN ORAL Moderate Pain (Pain Scale 4-6) 03/03/17 11:00 03/10/17 10:59 Al Hydroxide/Mg Hydroxide (Mylanta II) 30 ml Q6H PRN ORAL dyspepsia 03/01/17 14:00 03/31/17 13:59 Amlodipine Besylate (Norvasc) 10 mg DAILY ORAL 03/01/17 15:00 03/31/17 14:59 03/04/17 09:02 Bisacodyl (Dulcolax) 10 mg Q12H PRN RECTAL Constipation 03/03/17 11:00 04/02/17 10:59 Dextrose (Dextrose 50%) STAT PRN IV Hypoglycemia 03/01/17 14:00 03/31/17 13:59 Dextrose/ Electrolytes 1,000 ml @ 75 mls/hr [id number] IV 03/03/17 12:00 04/02/17 11:59 03/04/17 14:08 Docusate Sodium (Colace) 100 mg THREE TIMES A DAY ORAL 03/03/17 13:00 04/02/17 12:59 03/04/17 17:35 Donepezil HCl (Aricept) 10 mg DAILY ORAL 03/02/17 09:00 04/01/17 08:59 03/04/17 09:01 Enoxaparin Sodium (Lovenox) 30 mg DAILY SUBQ 03/04/17 09:00 04/03/17 08:59 03/04/17 09:03 Ferrous Sulfate (Feosol) 325 mg THREE TIMES A DAY ORAL 03/03/17 13:00 04/02/17 12:59 03/04/17 17:36 Hydromorphone HCl (Dilaudid) 1 mg Q4H PRN SUBQ Severe Pain (Pain Scale 7-10) 03/03/17 11:00 03/10/17 10:59 Lidocaine (Lidoderm 5% PATCH) 1 patch DAILY TDERMAL 03/02/17 11:00 04/01/17 10:59 03/04/17 09:03 Lorazepam (Ativan 2mg/ml 1ml) 0.5 mg Q4H PRN IV For Anxiety 03/01/17 14:00 03/08/17 13:59 Memantine (Namenda) 5 mg BID ORAL 03/02/17 09:00 04/01/17 08:59 03/04/17 17:36 Metoprolol Tartrate (Lopressor) 25 mg EVERY 12 HOURS ORAL 03/01/17 21:00 03/31/17 20:59 03/04/17 09:02 Ondansetron HCl (Zofran) 4 mg Q6H PRN IVP Nausea & Vomiting 03/01/17 14:00 03/31/17 13:59 Polyethylene Glycol (Miralax) 17 gm HSPRN PRN ORAL Constipation 03/01/17 14:00 03/31/17 13:59 Risperidone (RisperDAL) 1 mg BID ORAL 03/01/17 18:00 03/31/17 17:59 03/04/17 17:36 Zolpidem Tartrate (Ambien) 5 mg HSPRN PRN ORAL Insomnia 03/01/17 14:00 03/08/17 13:59 Charis Dominguez M.D. Mar 04, 2017 17:42
--- NOTE | 2017-03-04 18:02 | 48 Hour Post Anesthesia Eval ---
Post Anesthesia Evaluation Procedure: L femoral ORIF Fx Date of Evaluation: Mar 04, 2017 Time of Evaluation: 18:01 Blood Pressure Systolic: 116 0: 52 Pulse Rate: 74 Respiratory Rate: 20 Temperature (Fahrenheit): 97.6 O2 Sat by Pulse Oximetry: 98 Airway: patent Nausea: No Vomiting: No Pain Intensity: 2 Hydration Status: adequate Cardiopulmonary Status: stable Mental Status/LOC: patient returned to baseline Follow-up Care/Observations: n/a Post-Anesthesia Complications: none Follow-up care needed: N/A SHANNON FREEMAN M.D. Mar 04, 2017 18:02
[2017-03-04 20:00] VITALS: BP 141/58
[2017-03-05] VITALS (8 sets, daily range): BP systolic 114–142; BP diastolic 56–70
--- NOTE | 2017-03-05 02:15 | Consultation ---
DATE OF CONSULTATION: INFECTIOUS DISEASES CONSULTATION CONSULTING PHYSICIAN: Charis Dominguez M.D. REQUESTING PHYSICIAN: Jong Jain D.O. Reason For Consultation: Leukocytosis, rule out sepsis in an 81-year-old female with hip fracture. History Of Present Illness: The patient is an 81-year-old female with history of dementia and psychiatric disorder, who was brought into [facility] emergency room for left hip pain status [facility] The patient's fall was witnessed by the nurse. She did not lose her consciousness completely. She developed left-sided hip pain after the fall, was 10/10, throbbing, and non-radiating. She was unable to bear weight or stand up. So, she was brought into the hospital for evaluation. CT scan of the pelvis showed a hematoma and intertrochanteric fracture of the left hip. So, she was admitted to the hospital. Her laboratory showed evidence of leukocytosis, so I was consulted by the primary provider for antibiotics treatment and further management. As of note, the patient is a poor historian and cannot provide any history. History was mainly obtained from medical record. Past Medical History: Significant for hypertension, anxiety, schizophrenia, major depression, encephalopathy, muscle weakness, and dementia. PAST SURGICAL HISTORY: Negative. Medications: The patient is on Tylenol, MiraLAX, Zofran, lorazepam, Ambien, Mylanta, Norvasc, Risperdal, Lopressor, Namenda, Aricept, and Lidoderm. ALLERGIES: No known drug allergy. Social History: [facility]. No recent drugs, tobacco, or alcohol. FAMILY HISTORY: Unable to obtain. PHYSICAL EXAMINATION: Vital Signs: Temperature 97.5 degrees, pulse 93, respirations 18, blood pressure 161/79, and saturation 95% on room air. General: An elderly female, Welsh speaker, demented, lying in bed, complaining of left hip pain. HEENT: Normocephalic and atraumatic. Pupils are reactive to light. Moist oral mucosa. No exudate. NECK: Supple. No lymphadenopathy. CARDIOVASCULAR: Regular rate and rhythm. No murmur or gallop. Lungs: Clear bilaterally. Diminished breathing sounds at the bases. No wheezing or rhonchi. Abdomen: Soft, nontender, and nondistended. Positive bowel sounds. No hepatosplenomegaly or ascites. Extremities: Left leg inverted outward and left hip tenderness, pain, and swelling with decreased range of motion. Laboratory Data: White count 14.3, hemoglobin 11.9, and platelet count 272,000. BUN of 16 and creatinine of 1.1. Urinalysis was negative for urine infection. Microbiology: Vancomycin-resistant enterococcus and methicillin-resistant Staphylococcus aureus screening pending. Imaging: Pelvis CT scan showed left hip intertrochanteric fracture, overlying small hematoma, the subcutaneous fat, and generalized thickening of the abductor musculature, probably indicates contusion and possibly subtle hematoma. Femur x-ray showed the same findings with positive left hip intertrochanteric fracture. ASSESSMENT AND RECOMMENDATION: 1. Leukocytosis, rule out sepsis. We will send blood culture. Monitor WBC. Hold off antibiotics for now. 2. Fracture of the hip, need surgical repair. Ortho is consulted. Continue pain management as per primary. 3. Hematoma of the hip due to the left hip fracture. Ortho is following. Monitor hemoglobin and hematocrit. Transfuse blood as needed. Thank you for the consult. Charis Dominguez M.D. DR: JHON JOB#: [id number] CC:
[2017-03-05 06:55] LABS: MEAN CORPUSCULAR HEMOGLOBIN 31.4 PG (27.0-31.0); MEAN CORPUSCULAR HGB CONC 33.6 G/DL (32.0-36.0); MEAN CORPUSCULAR VOLUME 93 FL (80-99); MEAN PLATELET VOLUME 7.8 FL (6.5-10.1); PLATELET COUNT 199 K/UL (150-450); RED CELL DISTRIBUTION WIDTH 13.4 % (11.6-14.8); WHITE BLOOD COUNT 8.4 K/UL (4.8-10.8)
[2017-03-05 07:06] LABS: ANION GAP 7 (5-15); CALCIUM 8.1 mg/dL (8.6-10.2); CARBON DIOXIDE 28 mEQ/L (20-30); CHLORIDE 105 mEQ/L (98-107); CREATININE 0.9 mg/dL (0.5-0.9); HEMOLYSIS 4; POTASSIUM 4.2 mEQ/L (3.4-4.9); SODIUM 140 mEQ/L (135-145)
--- NOTE | 2017-03-05 07:19 | Pulmonology Progress Note ---
Assessment/Plan Assessment/Plan ASSESSMENT s/p mechanical fall left hip intertrochanteric fracture s/p ORIF L hip fracture 03/03 left hip pain HTN dementia severe protein calorie malnutrition,. anemia of chronic disease, requiring blood transfusion elevated TSH, subclinical hypothyroidism PLAN OF CARE MS floor ortho surgery follows cardiac clearance prior to surgery given ECHO with pEF 70-75% s/p ORIF 03/03 pain management pain specialist follows DVT prophylaxis PT/OT fall precautions continue Aricept and Namenda BP management with BB and CCB, optimize as needed nephro follows ARF likely due to dehydration IVF avoid nephrotics, especially NSAID anemia w/up c/w anemia of chronic disease transfuse 1 u PRBC today check stool OB elevated TSH, check free T4 -OK, subclinical hypothyroidism, check thyroid panel in 1-2 months dc plan per PMD case discussed and evaluated by supervising physician Subjective Allergies: Coded Allergies: No Known Allergies (Unverified , 08/13/16) Subjective no c/o pain no signs of distress no leukocytosis, afebrile, renal parameter stable HH trending down Objective Last 24 Hour Vital Signs Date Time Temp Pulse Resp B/P (MAP) Pulse Ox O2 Delivery O2 Flow Rate FiO2 03/05/17 04:00 97.0 85 18 114/64 96 Room Air 03/05/17 00:00 97.5 74 17 125/66 98 Room Air 03/04/17 21:29 93 119/58 03/04/17 20:00 97.8 78 18 141/58 100 Room Air 03/04/17 18:02 74 20 98 03/04/17 16:45 98.5 82 17 117/71 96 Room Air 03/04/17 12:00 98.1 78 18 112/51 96 Room Air 03/04/17 09:02 90 115/56 03/04/17 09:02 90 115/56 03/04/17 08:49 98.0 90 18 115/56 93 Room Air Objective General Appearance: no acute distress, cachetic, other - awake, confused, poorly but resposnive HEENT: anicteric Respiratory/Chest: lungs clear - with moderate air exchange , no accessory muscle use Cardiovascular: normal peripheral pulses, normal rate, regular rhythm, no JVD Abdomen: soft, non tender, non distended Extremities: no edema, pedal pulses normal Skin: left hip with dressing C/D/I Neurologic/Psychiatric: abnormal gait, alert, awake, alert, confused, Musculoskeletal: left hip with dressing, atrophy BLE Laboratory Tests 03/05/17 04:55: White Blood Count 8.4, Red Blood Count 2.50L, Hemoglobin 7.8L, Hematocrit 23.3L , Mean Corpuscular Volume 93, Mean Corpuscular Hemoglobin 31.4H, Mean Corpuscular Hemoglobin Concent 33.6, Red Cell Distribution Width 13.4, Platelet Count 199, Mean Platelet Volume 7.8, Neutrophils (%) (Auto) , Lymphocytes (%) ( Auto) , Monocytes (%) (Auto) , Eosinophils (%) (Auto) , Basophils (%) (Auto) , Neutrophils % (Manual) [Pending], Lymphocytes % (Manual) [Pending], Platelet Estimate [Pending], Platelet Morphology [Pending], Sodium Level 140, Potassium Level 4.2, Chloride Level 105, Carbon Dioxide Level 28, Anion Gap 7, Blood Urea Nitrogen 20, Creatinine 0.9, Estimat Glomerular Filtration Rate , Glucose Level 102, Calcium Level 8.1L, Free Thyroxine 1.20 Current Medications Medications (Trade) Dose Ordered Sig/Brenda Route PRN Reason Start Time Stop Time Status Last Admin Dose Admin Acetaminophen (Tylenol) 650 mg Q4H PRN ORAL fever 03/01/17 14:00 03/31/17 13:59 Acetaminophen (Tylenol) 650 mg Q4H PRN ORAL Mild Pain (Pain Scale 1-3) 03/03/17 11:00 04/02/17 10:59 Acetaminophen/ Hydrocodone Bitart ([place] 7.5/325) 1 ea Q4H PRN ORAL Moderate Pain (Pain Scale 4-6) 03/03/17 11:00 03/10/17 10:59 Al Hydroxide/Mg Hydroxide (Mylanta II) 30 ml Q6H PRN ORAL dyspepsia 03/01/17 14:00 03/31/17 13:59 Amlodipine Besylate (Norvasc) 10 mg DAILY ORAL 03/01/17 15:00 03/31/17 14:59 03/04/17 09:02 Bisacodyl (Dulcolax) 10 mg Q12H PRN RECTAL Constipation 03/03/17 11:00 04/02/17 10:59 Dextrose (Dextrose 50%) STAT PRN IV Hypoglycemia 03/01/17 14:00 03/31/17 13:59 Docusate Sodium (Colace) 100 mg THREE TIMES A DAY ORAL 03/03/17 13:00 04/02/17 12:59 03/04/17 17:35 Donepezil HCl (Aricept) 10 mg DAILY ORAL 03/02/17 09:00 04/01/17 08:59 03/04/17 09:01 Enoxaparin Sodium (Lovenox) 30 mg DAILY SUBQ 03/04/17 09:00 04/03/17 08:59 03/04/17 09:03 Ferrous Sulfate (Feosol) 325 mg THREE TIMES A DAY ORAL 03/03/17 13:00 04/02/17 12:59 03/04/17 17:36 Hydromorphone HCl (Dilaudid) 1 mg Q4H PRN SUBQ Severe Pain (Pain Scale 7-10) 03/03/17 11:00 03/10/17 10:59 Lidocaine (Lidoderm 5% PATCH) 1 patch DAILY TDERMAL 03/02/17 11:00 04/01/17 10:59 03/04/17 09:03 Lorazepam (Ativan 2mg/ml 1ml) 0.5 mg Q4H PRN IV For Anxiety 03/01/17 14:00 03/08/17 13:59 Memantine (Namenda) 5 mg BID ORAL 03/02/17 09:00 04/01/17 08:59 03/04/17 17:36 Metoprolol Tartrate (Lopressor) 25 mg EVERY 12 HOURS ORAL 03/01/17 21:00 03/31/17 20:59 03/04/17 21:29 Ondansetron HCl (Zofran) 4 mg Q6H PRN IVP Nausea & Vomiting 03/01/17 14:00 03/31/17 13:59 Polyethylene Glycol (Miralax) 17 gm HSPRN PRN ORAL Constipation 03/01/17 14:00 03/31/17 13:59 Risperidone (RisperDAL) 1 mg BID ORAL 03/01/17 18:00 03/31/17 17:59 03/04/17 17:36 Zolpidem Tartrate (Ambien) 5 mg HSPRN PRN ORAL Insomnia 03/01/17 14:00 03/08/17 13:59 Stefan ([facility])Mandy NP Mar 05, 2017 07:19
[2017-03-05] MEDS: Enoxaparin 30mg Inj SUBQ SCH (08:49)
[2017-03-05] MEDS: Memantine 5 MG TAB ORAL SCH ×2 (08:50→18:00)
[2017-03-05] MEDS: Docusate 100mg cap ORAL SCH ×3 (08:51→18:00)
[2017-03-05] MEDS: Metoprolol 25mg tab ORAL SCH ×2 (08:51→20:32)
[2017-03-05] MEDS: Donepezil 10mg tab ORAL SCH (08:51)
[2017-03-05 09:27] LABS: BAND NEUTROPHILS % (MANUAL) 0 % (0-8); BASOPHILS % (MANUAL) 0 % (0-2); EOSINOPHILS % (MANUAL) 1 % (0-3); LYMPHOCYTES % (MANUAL) 11 % (20-45); NEUTROPHILS % (MANUAL) 81 % (45-75); PLATELET ESTIMATE ADEQUATE; PLATELET MORPHOLOGY NORMAL; TOTAL CELLS COUNTED 100
--- NOTE | 2017-03-05 14:40 | General Progress Note ---
Assessment/Plan Problem List: (1) ATN (acute tubular necrosis) ICD Codes: N17.0 - Acute kidney failure with tubular necrosis SNOMED: 79156033 (2) Fall ICD Codes: W19.XXXA - Unspecified fall, initial encounter SNOMED: 9218395, 388648174 Qualifiers: Qualified Codes: W19.XXXA - Unspecified fall, initial encounter (3) Fracture, intertrochanteric, left femur ICD Codes: S72.142A - Displaced intertrochanteric fracture of left femur, initial encounter for closed fracture SNOMED: 901079285, 128374393 Qualifiers: Qualified Codes: S72.145A - Nondisplaced intertrochanteric fracture of left femur, initial encounter for closed fracture (4) Encephalopathy ICD Codes: G93.40 - Encephalopathy, unspecified SNOMED: 39897535, 440462417 Status: stable, progressing, tolerating diet Assessment/Plan ot pt diet cbc bmp am heme eval transfuse prn ltach eval Subjective Constitutional: Reports: weakness Allergies: Coded Allergies: No Known Allergies (Unverified , 08/13/16) All Systems: reviewed and negative except above Subjective sleepy calm s/p hip sx Objective Last 24 Hour Vital Signs Date Time Temp Pulse Resp B/P (MAP) Pulse Ox O2 Delivery O2 Flow Rate FiO2 03/05/17 12:00 96.4 62 19 96 Room Air 03/05/17 08:51 94 114/64 03/05/17 08:51 94 114/64 03/05/17 08:00 96.2 94 19 114/64 95 Room Air 03/05/17 04:00 97.0 85 18 114/64 96 Room Air 03/05/17 00:00 97.5 74 17 125/66 98 Room Air 03/04/17 21:29 93 119/58 03/04/17 20:00 97.8 78 18 141/58 100 Room Air 03/04/17 18:02 74 20 98 03/04/17 16:45 98.5 82 17 117/71 96 Room Air Intake and Output 03/05/17 03/06/17 19:00 07:00 Intake Total 200 ml Balance 200 ml Intake Oral 200 ml Laboratory Tests 03/05/17 04:55: White Blood Count 8.4, Red Blood Count 2.50L, Hemoglobin 7.8L, Hematocrit 23.3L , Mean Corpuscular Volume 93, Mean Corpuscular Hemoglobin 31.4H, Mean Corpuscular Hemoglobin Concent 33.6, Red Cell Distribution Width 13.4, Platelet Count 199, Mean Platelet Volume 7.8, Neutrophils (%) (Auto) , Lymphocytes (%) ( Auto) , Monocytes (%) (Auto) , Eosinophils (%) (Auto) , Basophils (%) (Auto) , Differential Total Cells Counted 100, Neutrophils % (Manual) 81H, Lymphocytes % (Manual) 11L, Monocytes % (Manual) 7, Eosinophils % (Manual) 1, Basophils % ( Manual) 0, Band Neutrophils 0, Platelet Estimate Adequate, Platelet Morphology Normal, Sodium Level 140, Potassium Level 4.2, Chloride Level 105, Carbon Dioxide Level 28, Anion Gap 7, Blood Urea Nitrogen 20, Creatinine 0.9, Estimat Glomerular Filtration Rate , Glucose Level 102, Calcium Level 8.1L, Free Thyroxine 1.20 Height (Feet): 5 Height (Inches): 0.00 Weight (Pounds): 100 General Appearance: lethargic EENT: normal ENT inspection Neck: normal alignment Cardiovascular: normal peripheral pulses, normal rate, regular rhythm Respiratory/Chest: chest wall non-tender, lungs clear, normal breath sounds Abdomen: normal bowel sounds, non tender, soft Extremities: normal inspection Edema: no edema noted Arm (L), no edema noted Arm (R), no edema noted Leg (L), no edema noted Leg (R), no edema noted Pedal (L), no edema noted Pedal (R), no edema noted Generalized Neurologic: motor weakness Skin: normal pigmentation, warm/dry RAIZA PATINO Mar 05, 2017 14:40
[2017-03-05] MEDS: Norco 7.5mg/325mg tab ORAL PRN (16:37)
--- NOTE | 2017-03-05 17:38 | Infectious Diseases Prog Note ---
Assessment/Plan Problems: (1) Leukocytosis Assessment & Plan: suspect dehydration and stress related from hip fracture , no evidence of sepsis, blood culture is negative , monitor WBC. (2) Fracture of left hip Assessment & Plan: S/P surgical repair , ortho is following (3) Hematoma of left hip Assessment & Plan: due to left hip fracture, ortho is following, monitor H/H , transfuse blood as needed Subjective ROS Limited/Unobtainable: Yes Allergies: Coded Allergies: No Known Allergies (Unverified , 08/13/16) Objective Vital Signs Last 24 Hour Vital Signs Date Time Temp Pulse Resp B/P (MAP) Pulse Ox O2 Delivery O2 Flow Rate FiO2 03/05/17 16:00 96.6 85 18 115/60 98 Room Air 03/05/17 14:20 97.4 83 18 122/56 96 03/05/17 14:15 99.0 80 18 131/66 99 Room Air 03/05/17 12:00 96.4 62 19 96 Room Air 03/05/17 08:51 94 114/64 03/05/17 08:51 94 114/64 03/05/17 08:00 96.2 94 19 114/64 95 Room Air 03/05/17 04:00 97.0 85 18 114/64 96 Room Air 03/05/17 00:00 97.5 74 17 125/66 98 Room Air 03/04/17 21:29 93 119/58 03/04/17 20:00 97.8 78 18 141/58 100 Room Air 03/04/17 18:02 74 20 98 Height (Feet): 5 Height (Inches): 0.00 Weight (Pounds): 100 General Appearance: WD/WN, no acute distress HEENT: normocephalic, atraumatic, anicteric, mucous membranes moist Respiratory/Chest: chest wall non-tender, lungs clear, normal breath sounds, no respiratory distress, no accessory muscle use Cardiovascular: normal peripheral pulses, normal rate, regular rhythm, no gallop/murmur, no JVD Abdomen: normal bowel sounds, soft, non tender, no organomegaly, non distended , no mass Extremities: no cyanosis, no clubbing Skin: no rash, no lesions, no ulcers Laboratory Tests Test 03/05/17 04:55 White Blood Count 8.4 K/UL (4.8-10.8) Red Blood Count 2.50 M/UL (4.20-5.40) L Hemoglobin 7.8 G/DL (12.0-16.0) L Hematocrit 23.3 % (37.0-47.0) L Mean Corpuscular Volume 93 FL (80-99) Mean Corpuscular Hemoglobin 31.4 PG (27.0-31.0) H Mean Corpuscular Hemoglobin Concent 33.6 G/DL (32.0-36.0) Red Cell Distribution Width 13.4 % (11.6-14.8) Platelet Count 199 K/UL (150-450) Mean Platelet Volume 7.8 FL (6.5-10.1) Neutrophils (%) (Auto) % (45.0-75.0) Lymphocytes (%) (Auto) % (20.0-45.0) Monocytes (%) (Auto) % (1.0-10.0) Eosinophils (%) (Auto) % (0.0-3.0) Basophils (%) (Auto) % (0.0-2.0) Differential Total Cells Counted 100 Neutrophils % (Manual) 81 % (45-75) H Lymphocytes % (Manual) 11 % (20-45) L Monocytes % (Manual) 7 % (1-10) Eosinophils % (Manual) 1 % (0-3) Basophils % (Manual) 0 % (0-2) Band Neutrophils 0 % (0-8) Platelet Estimate Adequate Platelet Morphology Normal Sodium Level 140 mEQ/L (135-145) Potassium Level 4.2 mEQ/L (3.4-4.9) Chloride Level 105 mEQ/L (98-107) Carbon Dioxide Level 28 mEQ/L (20-30) Anion Gap 7 (5-15) Blood Urea Nitrogen 20 mg/dL (7-23) Creatinine 0.9 mg/dL (0.5-0.9) Estimat Glomerular Filtration Rate mL/min (>60) Glucose Level 102 mg/dL (74-106) Calcium Level 8.1 mg/dL (8.6-10.2) L Free Thyroxine 1.20 ng/dL (0.86-1.85) Current Medications Medications (Trade) Dose Ordered Sig/Brenda Route PRN Reason Start Time Stop Time Status Last Admin Dose Admin Acetaminophen (Tylenol) 650 mg Q4H PRN ORAL fever 9/19/17 14:00 03/31/17 13:59 Acetaminophen (Tylenol) 650 mg Q4H PRN ORAL Mild Pain (Pain Scale 1-3) 03/03/17 11:00 04/02/17 10:59 Acetaminophen/ Hydrocodone Bitart ([place] 7.5/325) 1 ea Q4H PRN ORAL Moderate Pain (Pain Scale 4-6) 03/03/17 11:00 03/10/17 10:59 03/05/17 16:37 Al Hydroxide/Mg Hydroxide (Mylanta II) 30 ml Q6H PRN ORAL dyspepsia 03/01/17 14:00 03/31/17 13:59 Amlodipine Besylate (Norvasc) 10 mg DAILY ORAL 03/01/17 15:00 03/31/17 14:59 03/05/17 08:51 Bisacodyl (Dulcolax) 10 mg Q12H PRN RECTAL Constipation 03/03/17 11:00 04/02/17 10:59 Dextrose (Dextrose 50%) STAT PRN IV Hypoglycemia 03/01/17 14:00 03/31/17 13:59 Docusate Sodium (Colace) 100 mg THREE TIMES A DAY ORAL 03/03/17 13:00 04/02/17 12:59 03/05/17 13:17 Donepezil HCl (Aricept) 10 mg DAILY ORAL 03/02/17 09:00 04/01/17 08:59 03/05/17 08:51 Enoxaparin Sodium (Lovenox) 30 mg DAILY SUBQ 03/04/17 09:00 04/03/17 08:59 03/05/17 08:49 Ferrous Sulfate (Feosol) 325 mg THREE TIMES A DAY ORAL 03/03/17 13:00 04/02/17 12:59 03/05/17 13:18 Hydromorphone HCl (Dilaudid) 1 mg Q4H PRN SUBQ Severe Pain (Pain Scale 7-10) 03/03/17 11:00 03/10/17 10:59 Lidocaine (Lidoderm 5% PATCH) 1 patch DAILY TDERMAL 03/02/17 11:00 04/01/17 10:59 03/05/17 09:48 Lorazepam (Ativan 2mg/ml 1ml) 0.5 mg Q4H PRN IV For Anxiety 03/01/17 14:00 03/08/17 13:59 Memantine (Namenda) 5 mg BID ORAL 03/02/17 09:00 04/01/17 08:59 03/05/17 08:50 Metoprolol Tartrate (Lopressor) 25 mg EVERY 12 HOURS ORAL 03/01/17 21:00 03/31/17 20:59 03/05/17 08:51 Ondansetron HCl (Zofran) 4 mg Q6H PRN IVP Nausea & Vomiting 03/01/17 14:00 03/31/17 13:59 Polyethylene Glycol (Miralax) 17 gm HSPRN PRN ORAL Constipation 03/01/17 14:00 03/31/17 13:59 Risperidone (RisperDAL) 1 mg BID ORAL 03/01/17 18:00 03/31/17 17:59 03/05/17 08:51 Zolpidem Tartrate (Ambien) 5 mg HSPRN PRN ORAL Insomnia 03/01/17 14:00 03/08/17 13:59 Charis Dominguez M.D. Mar 05, 2017 17:38
[2017-03-05] MEDS ORDERED: NS 275ml ONE (17:42)
[2017-03-05] MEDS ORDERED: Tubing IV Blood Pump IV ONE (17:42)
[2017-03-06] VITALS: BP 133/67
[2017-03-06] MEDS: Norco 7.5mg/325mg tab ORAL PRN (01:04)
[2017-03-06 04:00] VITALS: BP 111/56
[2017-03-06 06:57] LABS: BASOPHILS % (AUTO) 0.5 % (0.0-2.0); EOSINOPHILS % (AUTO) 3.2 % (0.0-3.0); LYMPHOCYTES % (AUTO) 14.1 % (20.0-45.0); MEAN CORPUSCULAR HEMOGLOBIN 31.5 PG (27.0-31.0); MEAN CORPUSCULAR VOLUME 93 FL (80-99); MEAN PLATELET VOLUME 7.8 FL (6.5-10.1); MONOCYTES % (AUTO) 6.4 % (1.0-10.0); NEUTROPHILS % (AUTO) 75.7 % (45.0-75.0); PLATELET COUNT 209 K/UL (150-450); RED BLOOD COUNT 2.81 M/UL (4.20-5.40); RED CELL DISTRIBUTION WIDTH 12.9 % (11.6-14.8); WHITE BLOOD COUNT 9.1 K/UL (4.8-10.8)
[2017-03-06 06:58] LABS: ANION GAP 7 (5-15); CALCIUM 7.7 mg/dL (8.6-10.2); CARBON DIOXIDE 28 mEQ/L (20-30); CHLORIDE 106 mEQ/L (98-107); HEMOLYSIS 2; POTASSIUM 4.7 mEQ/L (3.4-4.9); SODIUM 141 mEQ/L (135-145)
[2017-03-06 08:00] VITALS: BP 123/63
--- NOTE | 2017-03-06 08:28 | Pulmonology Progress Note ---
Assessment/Plan Assessment/Plan ASSESSMENT s/p mechanical fall left hip intertrochanteric fracture s/p ORIF L hip fracture 03/03 left hip pain HTN dementia severe protein calorie malnutrition,. anemia of chronic disease, requiring blood transfusion elevated TSH, subclinical hypothyroidism PLAN OF CARE MS floor ortho surgery follows cardiac clearance prior to surgery given ECHO with pEF 70-75% s/p ORIF 03/03 pain management pain specialist follows DVT prophylaxis PT/OT fall precautions continue Aricept and Namenda BP management with BB and CCB, optimize as needed nephro follows ARF likely due to dehydration IVF avoid nephrotics, especially NSAID anemia w/up c/w anemia of chronic disease , s/p 1 u PRBC 03/05 HH better stool OB pending give 500 cc NS bolus to improve azotemia push po fluids leukocytosis was x 1 only, resolved, likely postoperative, reactive ID follows UA negative, blood cx preliminary negative, off abx, observe, afebrile, no clinical signs fo infection, wound clean, no respiratory symptoms elevated TSH, check free T4 -OK, subclinical hypothyroidism, check thyroid panel in 1-2 months dc plan per PMD case discussed and evaluated by supervising physician Subjective Allergies: Coded Allergies: No Known Allergies (Unverified , 08/13/16) Subjective no c/o pain no signs of distress no leukocytosis, afebrile, renal parameter stable HH up after blood transfusion BUN trending up Objective Last 24 Hour Vital Signs Date Time Temp Pulse Resp B/P (MAP) Pulse Ox O2 Delivery O2 Flow Rate FiO2 03/06/17 04:00 97.3 68 20 111/56 96 Room Air 03/06/17 00:00 97.4 77 20 133/67 93 Room Air 03/05/17 20:32 94 137/57 03/05/17 20:00 97.0 79 20 137/59 94 Room Air 03/05/17 17:40 98.2 18 142/70 96 Room Air 03/05/17 17:36 98.2 03/05/17 16:00 96.6 85 18 115/60 98 Room Air 03/05/17 14:20 97.4 83 18 122/56 96 03/05/17 14:15 99.0 80 18 131/66 99 Room Air 03/05/17 12:00 96.4 62 19 96 Room Air 03/05/17 08:51 94 114/64 03/05/17 08:51 94 114/64 Objective General Appearance: no acute distress, cachetic, other - awake, confused, poorly but resposnive HEENT: anicteric Respiratory/Chest: lungs clear - with moderate air exchange , no accessory muscle use Cardiovascular: normal peripheral pulses, normal rate, regular rhythm, no JVD Abdomen: soft, non tender, non distended Extremities: no edema, pedal pulses normal Skin: left hip with dressing C/D/I Neurologic/Psychiatric: abnormal gait, alert, awake, alert, confused, Musculoskeletal: left hip with dressing, atrophy BLE Laboratory Tests 03/05/17 10:20: Stool Occult Blood [Pending] 03/06/17 05:10: White Blood Count 9.1, Red Blood Count 2.81L, Hemoglobin 8.9L, Hematocrit 26.0L , Mean Corpuscular Volume 93, Mean Corpuscular Hemoglobin 31.5H, Mean Corpuscular Hemoglobin Concent 34.0, Red Cell Distribution Width 12.9, Platelet Count 209, Mean Platelet Volume 7.8, Neutrophils (%) (Auto) 75.7H, Lymphocytes ( %) (Auto) 14.1L, Monocytes (%) (Auto) 6.4, Eosinophils (%) (Auto) 3.2H, Basophils (%) (Auto) 0.5, Sodium Level 141, Potassium Level 4.7, Chloride Level 106, Carbon Dioxide Level 28, Anion Gap 7, Blood Urea Nitrogen 30H, Creatinine 1.0H, Estimat Glomerular Filtration Rate , Glucose Level 98, Calcium Level 7.7L Current Medications Medications (Trade) Dose Ordered Sig/Brenda Route PRN Reason Start Time Stop Time Status Last Admin Dose Admin Acetaminophen (Tylenol) 650 mg Q4H PRN ORAL fever 03/01/17 14:00 03/31/17 13:59 Acetaminophen (Tylenol) 650 mg Q4H PRN ORAL Mild Pain (Pain Scale 1-3) 03/03/17 11:00 04/02/17 10:59 Acetaminophen/ Hydrocodone Bitart ([place] 7.5/325) 1 ea Q4H PRN ORAL Moderate Pain (Pain Scale 4-6) 03/03/17 11:00 03/10/17 10:59 03/06/17 01:04 Al Hydroxide/Mg Hydroxide (Mylanta II) 30 ml Q6H PRN ORAL dyspepsia 03/01/17 14:00 03/31/17 13:59 Amlodipine Besylate (Norvasc) 10 mg DAILY ORAL 03/01/17 15:00 03/31/17 14:59 03/05/17 08:51 Bisacodyl (Dulcolax) 10 mg Q12H PRN RECTAL Constipation 03/03/17 11:00 04/02/17 10:59 Dextrose (Dextrose 50%) STAT PRN IV Hypoglycemia 03/01/17 14:00 03/31/17 13:59 Docusate Sodium (Colace) 100 mg THREE TIMES A DAY ORAL 03/03/17 13:00 04/02/17 12:59 03/05/17 13:17 Donepezil HCl (Aricept) 10 mg DAILY ORAL 03/02/17 09:00 04/01/17 08:59 03/05/17 08:51 Enoxaparin Sodium (Lovenox) 30 mg DAILY SUBQ 03/04/17 09:00 04/03/17 08:59 03/05/17 08:49 Ferrous Sulfate (Feosol) 325 mg THREE TIMES A DAY ORAL 03/03/17 13:00 04/02/17 12:59 03/05/17 13:18 Hydromorphone HCl (Dilaudid) 1 mg Q4H PRN SUBQ Severe Pain (Pain Scale 7-10) 03/03/17 11:00 03/10/17 10:59 Lidocaine (Lidoderm 5% PATCH) 1 patch DAILY TDERMAL 03/02/17 11:00 04/01/17 10:59 03/05/17 09:48 Lorazepam (Ativan 2mg/ml 1ml) 0.5 mg Q4H PRN IV For Anxiety 03/01/17 14:00 03/08/17 13:59 Memantine (Namenda) 5 mg BID ORAL 03/02/17 09:00 04/01/17 08:59 03/05/17 08:50 Metoprolol Tartrate (Lopressor) 25 mg EVERY 12 HOURS ORAL 03/01/17 21:00 03/31/17 20:59 03/05/17 20:32 Ondansetron HCl (Zofran) 4 mg Q6H PRN IVP Nausea & Vomiting 03/01/17 14:00 03/31/17 13:59 Polyethylene Glycol (Miralax) 17 gm HSPRN PRN ORAL Constipation 03/01/17 14:00 03/31/17 13:59 Risperidone (RisperDAL) 1 mg BID ORAL 03/01/17 18:00 03/31/17 17:59 03/05/17 08:51 Zolpidem Tartrate (Ambien) 5 mg HSPRN PRN ORAL Insomnia 03/01/17 14:00 03/08/17 13:59 [facility]St[facility] ShoreMandy gonzales NP Mar 06, 2017 08:28
[2017-03-06] MEDS ORDERED: Sodium Chloride 500ML 550 ML IV ONE (08:30)
[2017-03-06] MEDS: Enoxaparin 30mg Inj SUBQ SCH (08:38)
[2017-03-06] MEDS: Metoprolol 25mg tab ORAL SCH (09:00)
[2017-03-06] MEDS: Docusate 100mg cap ORAL SCH ×3 (09:00→17:32)
[2017-03-06] MEDS: Memantine 5 MG TAB ORAL SCH ×2 (09:00→18:00)
[2017-03-06] MEDS: Donepezil 10mg tab ORAL SCH (09:00)
--- NOTE | 2017-03-06 09:07 | General Progress Note ---
Assessment/Plan Problem List: (1) ATN (acute tubular necrosis) ICD Codes: N17.0 - Acute kidney failure with tubular necrosis SNOMED: 40689114 (2) Fall ICD Codes: W19.XXXA - Unspecified fall, initial encounter SNOMED: 5841123, 871605832 Qualifiers: Qualified Codes: W19.XXXA - Unspecified fall, initial encounter (3) Fracture, intertrochanteric, left femur ICD Codes: S72.142A - Displaced intertrochanteric fracture of left femur, initial encounter for closed fracture SNOMED: 806024159, 721750693 Qualifiers: Qualified Codes: S72.145A - Nondisplaced intertrochanteric fracture of left femur, initial encounter for closed fracture (4) Encephalopathy ICD Codes: G93.40 - Encephalopathy, unspecified SNOMED: 44984811, 213465353 Status: stable, progressing, tolerating diet Assessment/Plan ot pt diet cbc bmp am heme eval transfuse prn ltach eval Subjective Constitutional: Reports: weakness Allergies: Coded Allergies: No Known Allergies (Unverified , 08/13/16) All Systems: reviewed and negative except above Subjective sleepy calm s/p hip sx Objective Last 24 Hour Vital Signs Date Time Temp Pulse Resp B/P (MAP) Pulse Ox O2 Delivery O2 Flow Rate FiO2 03/06/17 04:00 97.3 68 20 111/56 96 Room Air 03/06/17 00:00 97.4 77 20 133/67 93 Room Air 03/05/17 20:32 94 137/57 03/05/17 20:00 97.0 79 20 137/59 94 Room Air 03/05/17 17:40 98.2 18 142/70 96 Room Air 03/05/17 17:36 98.2 03/05/17 16:00 96.6 85 18 115/60 98 Room Air 03/05/17 14:20 97.4 83 18 122/56 96 03/05/17 14:15 99.0 80 18 131/66 99 Room Air 03/05/17 12:00 96.4 62 19 96 Room Air Laboratory Tests 03/05/17 10:20: Stool Occult Blood [Pending] 03/06/17 05:10: White Blood Count 9.1, Red Blood Count 2.81L, Hemoglobin 8.9L, Hematocrit 26.0L , Mean Corpuscular Volume 93, Mean Corpuscular Hemoglobin 31.5H, Mean Corpuscular Hemoglobin Concent 34.0, Red Cell Distribution Width 12.9, Platelet Count 209, Mean Platelet Volume 7.8, Neutrophils (%) (Auto) 75.7H, Lymphocytes ( %) (Auto) 14.1L, Monocytes (%) (Auto) 6.4, Eosinophils (%) (Auto) 3.2H, Basophils (%) (Auto) 0.5, Sodium Level 141, Potassium Level 4.7, Chloride Level 106, Carbon Dioxide Level 28, Anion Gap 7, Blood Urea Nitrogen 30H, Creatinine 1.0H, Estimat Glomerular Filtration Rate , Glucose Level 98, Calcium Level 7.7L Height (Feet): 5 Height (Inches): 0.00 Weight (Pounds): 100 General Appearance: lethargic EENT: normal ENT inspection Neck: normal alignment Cardiovascular: normal peripheral pulses, normal rate, regular rhythm Respiratory/Chest: chest wall non-tender, lungs clear, normal breath sounds Abdomen: normal bowel sounds, non tender, soft Extremities: normal inspection Edema: no edema noted Arm (L), no edema noted Arm (R), no edema noted Leg (L), no edema noted Leg (R), no edema noted Pedal (L), no edema noted Pedal (R), no edema noted Generalized Neurologic: motor weakness Skin: normal pigmentation, warm/dry RAIZA PATINO Mar 06, 2017 09:07
[2017-03-06 12:00] VITALS: BP 118/62
--- NOTE | 2017-03-06 12:00 | General Progress Note ---
Assessment/Plan Assessment/Plan (1) Left hip pain (2) Left hip fracture (3) S/p ORIF (4) Dementia Pt will be continued on [place] and Dilaudid D/w Dr. Vasquez and he concurred. Subjective Date patient seen: Mar 06, 2017 Time patient seen: 11:15 - am ROS Limited/Unobtainable: Yes Allergies: Coded Allergies: No Known Allergies (Unverified , 08/13/16) Subjective Patient is laying in bed no signs of pain or distress noted. She is s/p ORIF and was started on [place] 5/325mg PO 1 tab Q4H PRN and Dilaudid 1mg SubQ Q4H PRN severe pain. The pain is at a mild level. Objective Last 24 Hour Vital Signs Date Time Temp Pulse Resp B/P (MAP) Pulse Ox O2 Delivery O2 Flow Rate FiO2 03/06/17 09:10 97.3 03/06/17 09:00 71 123/63 03/06/17 09:00 71 123/63 03/06/17 08:00 98.1 71 20 123/63 95 Room Air 03/06/17 04:00 97.3 68 20 111/56 96 Room Air 03/06/17 00:00 97.4 77 20 133/67 93 Room Air 03/05/17 20:32 94 137/57 03/05/17 20:00 97.0 79 20 137/59 94 Room Air 03/05/17 17:40 98.2 18 142/70 96 Room Air 03/05/17 17:36 98.2 03/05/17 16:00 96.6 85 18 115/60 98 Room Air 03/05/17 14:20 97.4 83 18 122/56 96 03/05/17 14:15 99.0 80 18 131/66 99 Room Air 03/05/17 12:00 96.4 62 19 96 Room Air Intake and Output 03/06/17 03/07/17 19:00 07:00 Intake Total 550 ml Balance 550 ml IV Total 550 ml Laboratory Tests 03/06/17 05:10: White Blood Count 9.1, Red Blood Count 2.81L, Hemoglobin 8.9L, Hematocrit 26.0L , Mean Corpuscular Volume 93, Mean Corpuscular Hemoglobin 31.5H, Mean Corpuscular Hemoglobin Concent 34.0, Red Cell Distribution Width 12.9, Platelet Count 209, Mean Platelet Volume 7.8, Neutrophils (%) (Auto) 75.7H, Lymphocytes ( %) (Auto) 14.1L, Monocytes (%) (Auto) 6.4, Eosinophils (%) (Auto) 3.2H, Basophils (%) (Auto) 0.5, Sodium Level 141, Potassium Level 4.7, Chloride Level 106, Carbon Dioxide Level 28, Anion Gap 7, Blood Urea Nitrogen 30H, Creatinine 1.0H, Estimat Glomerular Filtration Rate , Glucose Level 98, Calcium Level 7.7L Height (Feet): 5 Height (Inches): 0.00 Weight (Pounds): 100 General Appearance: no apparent distress, alert EENT: PERRL/EOMI, normal ENT inspection Neck: non-tender, normal alignment Cardiovascular: normal rate, regular rhythm Respiratory/Chest: lungs clear, normal breath sounds Abdomen: non tender, soft Extremities: other - bandages noted on left hip Neurologic: responsive Skin: warm/dry GABRIELA GALVAN Mar 06, 2017 12:00
--- NOTE | 2017-03-06 14:53 | Infectious Diseases Prog Note ---
Assessment/Plan Problems: (1) Leukocytosis Assessment & Plan: suspect dehydration and stress related from hip fracture , no evidence of sepsis, blood culture is negative , monitor WBC. (2) Fracture of left hip Assessment & Plan: S/P surgical repair , ortho is following (3) Hematoma of left hip Assessment & Plan: due to left hip fracture, ortho is following, monitor H/H , transfuse blood as needed Subjective ROS Limited/Unobtainable: Yes Allergies: Coded Allergies: No Known Allergies (Unverified , 08/13/16) Objective Vital Signs Last 24 Hour Vital Signs Date Time Temp Pulse Resp B/P (MAP) Pulse Ox O2 Delivery O2 Flow Rate FiO2 03/06/17 12:00 97.8 68 20 118/62 94 Room Air 03/06/17 09:10 97.3 03/06/17 09:00 71 123/63 03/06/17 09:00 71 123/63 03/06/17 08:00 98.1 71 20 123/63 95 Room Air 03/06/17 04:00 97.3 68 20 111/56 96 Room Air 03/06/17 00:00 97.4 77 20 133/67 93 Room Air 03/05/17 20:32 94 137/57 03/05/17 20:00 97.0 79 20 137/59 94 Room Air 03/05/17 17:40 98.2 18 142/70 96 Room Air 03/05/17 17:36 98.2 03/05/17 16:00 96.6 85 18 115/60 98 Room Air Height (Feet): 5 Height (Inches): 0.00 Weight (Pounds): 100 General Appearance: WD/WN, no acute distress HEENT: normocephalic, atraumatic, anicteric, mucous membranes moist Respiratory/Chest: chest wall non-tender, lungs clear, normal breath sounds, no respiratory distress Cardiovascular: normal peripheral pulses, normal rate, regular rhythm, no gallop/murmur Abdomen: normal bowel sounds, soft, non tender, no organomegaly, non distended , no mass Extremities: no cyanosis, no clubbing Laboratory Tests Test 03/06/17 05:10 White Blood Count 9.1 K/UL (4.8-10.8) Red Blood Count 2.81 M/UL (4.20-5.40) L Hemoglobin 8.9 G/DL (12.0-16.0) L Hematocrit 26.0 % (37.0-47.0) L Mean Corpuscular Volume 93 FL (80-99) Mean Corpuscular Hemoglobin 31.5 PG (27.0-31.0) H Mean Corpuscular Hemoglobin Concent 34.0 G/DL (32.0-36.0) Red Cell Distribution Width 12.9 % (11.6-14.8) Platelet Count 209 K/UL (150-450) Mean Platelet Volume 7.8 FL (6.5-10.1) Neutrophils (%) (Auto) 75.7 % (45.0-75.0) H Lymphocytes (%) (Auto) 14.1 % (20.0-45.0) L Monocytes (%) (Auto) 6.4 % (1.0-10.0) Eosinophils (%) (Auto) 3.2 % (0.0-3.0) H Basophils (%) (Auto) 0.5 % (0.0-2.0) Sodium Level 141 mEQ/L (135-145) Potassium Level 4.7 mEQ/L (3.4-4.9) Chloride Level 106 mEQ/L (98-107) Carbon Dioxide Level 28 mEQ/L (20-30) Anion Gap 7 (5-15) Blood Urea Nitrogen 30 mg/dL (7-23) H Creatinine 1.0 mg/dL (0.5-0.9) H Estimat Glomerular Filtration Rate mL/min (>60) Glucose Level 98 mg/dL (74-106) Calcium Level 7.7 mg/dL (8.6-10.2) L Current Medications Medications (Trade) Dose Ordered Sig/Brenda Route PRN Reason Start Time Stop Time Status Last Admin Dose Admin Acetaminophen (Tylenol) 650 mg Q4H PRN ORAL fever 03/01/17 14:00 03/31/17 13:59 03/06/17 08:11 Acetaminophen (Tylenol) 650 mg Q4H PRN ORAL Mild Pain (Pain Scale 1-3) 03/03/17 11:00 04/02/17 10:59 Acetaminophen/ Hydrocodone Bitart ([place] 7.5/325) 1 ea Q4H PRN ORAL Moderate Pain (Pain Scale 4-6) 03/03/17 11:00 9/28/17 10:59 03/06/17 01:04 Al Hydroxide/Mg Hydroxide (Mylanta II) 30 ml Q6H PRN ORAL dyspepsia 03/01/17 14:00 03/31/17 13:59 Amlodipine Besylate (Norvasc) 10 mg DAILY ORAL 03/01/17 15:00 03/31/17 14:59 03/05/17 08:51 Bisacodyl (Dulcolax) 10 mg Q12H PRN RECTAL Constipation 03/03/17 11:00 04/02/17 10:59 Dextrose (Dextrose 50%) STAT PRN IV Hypoglycemia 03/01/17 14:00 03/31/17 13:59 Docusate Sodium (Colace) 100 mg THREE TIMES A DAY ORAL 03/03/17 13:00 04/02/17 12:59 03/05/17 13:17 Donepezil HCl (Aricept) 10 mg DAILY ORAL 03/02/17 09:00 04/01/17 08:59 03/05/17 08:51 Enoxaparin Sodium (Lovenox) 30 mg DAILY SUBQ 03/04/17 09:00 04/03/17 08:59 03/06/17 08:38 Ferrous Sulfate (Feosol) 325 mg THREE TIMES A DAY ORAL 03/03/17 13:00 04/02/17 12:59 03/06/17 12:38 Hydromorphone HCl (Dilaudid) 1 mg Q4H PRN SUBQ Severe Pain (Pain Scale 7-10) 03/03/17 11:00 03/10/17 10:59 Lidocaine (Lidoderm 5% PATCH) 1 patch DAILY TDERMAL 03/02/17 11:00 04/01/17 10:59 03/06/17 08:39 Lorazepam (Ativan 2mg/ml 1ml) 0.5 mg Q4H PRN IV For Anxiety 03/01/17 14:00 03/08/17 13:59 Memantine (Namenda) 5 mg BID ORAL 03/02/17 09:00 04/01/17 08:59 03/05/17 08:50 Metoprolol Tartrate (Lopressor) 25 mg EVERY 12 HOURS ORAL 03/01/17 21:00 03/31/17 20:59 03/05/17 20:32 Ondansetron HCl (Zofran) 4 mg Q6H PRN IVP Nausea & Vomiting 03/01/17 14:00 03/31/17 13:59 Polyethylene Glycol (Miralax) 17 gm HSPRN PRN ORAL Constipation 03/01/17 14:00 03/31/17 13:59 Risperidone (RisperDAL) 1 mg BID ORAL 03/01/17 18:00 03/31/17 17:59 03/05/17 08:51 Zolpidem Tartrate (Ambien) 5 mg HSPRN PRN ORAL Insomnia 03/01/17 14:00 03/08/17 13:59 Charis Dominguez M.D. Mar 06, 2017 14:53
[2017-03-06 16:00] VITALS: BP 128/70
[2017-03-06] MEDS ORDERED: TYLENOL650 MG/20. ORAL (17:56)
[2017-03-06] MEDS ORDERED: BISACODYL10 MG/30 M RC (18:06)
[2017-03-06] MEDS ORDERED: COLACE100 MG ORAL (18:07)
[2017-03-06] MEDS ORDERED: LOVENOX10 MG SUBQ (18:08)
[2017-03-06] MEDS ORDERED: FEOSOL325 MG PO (18:10)
[2017-03-06] MEDS ORDERED: LIDODERM700 M1 TOPIC (18:10)
[2017-03-06] MEDS ORDERED: NAMENDA5 MG ORAL (18:11)
[2017-03-06] MEDS ORDERED: MIRALAX17 G2 ORAL (18:13)
[2017-03-06] MEDS ORDERED: AMBIEN5 MG ORAL (18:14)
[2017-03-06] MEDS ORDERED: NORCO 7.5-3251 EACH ORAL (18:16)
[2017-03-06] MEDS ORDERED: DILAUDID1 MG/1 ML SUBQ (18:18)
[2017-03-06] MEDS ORDERED: MYLANTA30 M1 PO (18:24)
[2017-03-06] MEDS ORDERED: BISACODYL5 MG RECTAL (18:28)
[2017-03-06 19:39] VITALS: BP 134/90
--- NOTE | 2017-03-06 19:46 | Nephrology Progress Note ---
Assessment/Plan Assessment 1. Acute renal failure.resolved 2. left hip fracture 3. Failure to thrive now pt has good appetite 4. Dehydration. 5.HTN Plan Plan continue iv US of kidney monitoring electrolyte avoid NSAID Subjective Constitutional: Reports: no symptoms HEENT: Reports: no symptoms Genitourinary: Reports: no symptoms Neurologic/Psychiatric: Reports: no symptoms Subjective s/p left ORIF Objective Objective Last 24 Hour Vital Signs Date Time Temp Pulse Resp B/P (MAP) Pulse Ox O2 Delivery O2 Flow Rate FiO2 03/06/17 19:39 97.3 90 18 134/90 95 Room Air 03/06/17 17:19 97.8 03/06/17 16:00 97.8 87 18 128/70 96 Room Air 03/06/17 12:00 97.8 68 20 118/62 94 Room Air 03/06/17 09:00 71 123/63 03/06/17 09:00 71 123/63 03/06/17 08:00 98.1 71 20 123/63 95 Room Air 03/06/17 04:00 97.3 68 20 111/56 96 Room Air 03/06/17 00:00 97.4 77 20 133/67 93 Room Air 03/05/17 20:32 94 137/57 03/05/17 20:00 97.0 79 20 137/59 94 Room Air Intake and Output 03/06/17 03/07/17 19:00 07:00 Intake Total 1500 ml Output Total 620 ml Balance 880 ml Intake Oral 350 ml IV Total 900 ml Blood Product 250 ml Output Urine Total 600 ml Estimated Blood Loss 20 ml # Voids 23 # Bowel Movements 1 Laboratory Tests 03/06/17 05:10: White Blood Count 9.1, Red Blood Count 2.81L, Hemoglobin 8.9L, Hematocrit 26.0L , Mean Corpuscular Volume 93, Mean Corpuscular Hemoglobin 31.5H, Mean Corpuscular Hemoglobin Concent 34.0, Red Cell Distribution Width 12.9, Platelet Count 209, Mean Platelet Volume 7.8, Neutrophils (%) (Auto) 75.7H, Lymphocytes ( %) (Auto) 14.1L, Monocytes (%) (Auto) 6.4, Eosinophils (%) (Auto) 3.2H, Basophils (%) (Auto) 0.5, Sodium Level 141, Potassium Level 4.7, Chloride Level 106, Carbon Dioxide Level 28, Anion Gap 7, Blood Urea Nitrogen 30H, Creatinine 1.0H, Estimat Glomerular Filtration Rate , Glucose Level 98, Calcium Level 7.7L Height (Feet): 5 Height (Inches): 0.00 Weight (Pounds): 100 Objective HEAD AND NECK: No JVP. No LAD. Bitemporal wasting. Extraocular movement intact. Pupils are reactive to light and accommodation. LUNGS: Decreased breathing sound on the both sides. CARDIAC: Regular rate and rhythm. S1 and S2. No murmur or rub. ABDOMEN: Soft, nontender, and nondistended. EXTREMITIES: Trace edema. No clubbing. No cyanosis. CARLTON MAYO Mar 06, 2017 19:46
[2017-03-06] MEDS ORDERED: D5 1/2NS 1000ml IV ONE (19:54)
[2017-03-06] MEDS ORDERED: NS 275ml ONE (19:54)
--- NOTE | 2017-03-07 11:00 | Consultation ---
DATE OF CONSULTATION: 03/05/2017 HEMATOLOGY/ONCOLOGY CONSULTATION REQUESTING PHYSICIAN: Jong Jain D.O. REASON FOR CONSULTATION: Evaluation of anemia. HISTORY OF PRESENT ILLNESS: Dear Dr. Jong Jain, The patient is an 81-year-old female with past medical history significant for dementia, psychiatric disorder, left hip pain, status post fall, lives in a care home with fall risk . She sustained a left hip fracture, seen by Orthopedics, scheduled for surgery, given morphine. Pain Management was consulted. The patient was having some anemia, therefore, Hematology service was consulted for further evaluation and treatment. PAST MEDICAL HISTORY: Significant for insomnia, hypertension. Medications: Aricept, Lopressor, heparin, Risperdal, morphine, Ambien, sulfa and Tylenol. ALLERGIES: No known drug allergies. Social History: As per chart. No alcohol, tobacco, or illicit drug use. REVIEW OF SYSTEMS: . PHYSICAL EXAMINATION: Vital Signs: Blood pressure 130/62, pulse 80, respiratory rate 12, and O2 saturation 97% on room air. GENERAL: No acute distress. LUNGS: Decreased breath sounds. CARDIOVASCULAR: Regular rate. No S3 or S4. ABDOMEN: Soft, nontender and nondistended. EXTREMITIES: There is 1+ edema. Laboratory And Diagnostic Data: BUN of 20 and creatinine 0.9. INR 1. WBC 8.4, hemoglobin 10.9, hematocrit 3, . Imaging, hip x-ray shows postoperative hip pain. ASSESSMENT AND PLAN: 1. Anemia secondary to chronic disease. 2. Anemia secondary to orthopedic procedure. 3. At this time, Epogen anemia worsens, at that time may consider one dose; however, hemoglobin currently 7.8. We will transfuse to hemoglobin above 8. 4. surgical procedure. . 5. Fracture of left hip, status post open reduction and internal fixation. I appreciate the consultation. Navarro Callahan M.D. DR: CAROLINE JOB#: [id number] CC:
--- NOTE | 2017-03-08 10:04 | Discharge Summary ---
Discharge Summary Hospital Course Date of Admission Mar 01, 2017 at 12:28 Date of Discharge Mar 06, 2017 at 19:55 Admitting Diagnosis LEFT HIP FRACTURE HPI Zully Hoff is a 81 year old female who was admitted on Mar 01, 2017 at 12:28 for Left Hip Fracture Hospital Course dc summary #[id number] Discharge Medications Continued Medications: Acetaminophen (Acetaminophen) 650 Mg/20.3 Ml Solution 650 MG ORAL Q6H PRN for Prn Headache/Temp > 101, ML 0 Refills Acetaminophen* (Acetaminophen 325MG Tablet*) 325 Mg Tablet 650 MG ORAL Q4H PRN for For Pain, TAB Acetaminophen (Acetaminophen) 650 Mg/20.3 Ml Solution 650 MG ORAL Q6H PRN for Prn Headache/Temp > 101, ML 0 Refills Al Hydroxide/mg Hydroxide (Mag-Al Liquid) 30 Ml Oral.susp 30 ML PO Q6HR for DYSPEPSIA, ML Amlodipine Besylate* (Amlodipine Besylate*) 10 Mg Tablet 10 MG ORAL DAILY, TAB Ascorbic Acid* (Vitamin C*) 500 Mg Tablet 500 MG ORAL DAILY, #30 TAB 0 Refills Bisacodyl* (Dulcolax*) 5 Mg Tablet.dr 10 MG RECTAL Q12HR for Constipation, #10 TAB 0 Refills Docusate Sodium* (Docusate Sodium*) 100 Mg Capsule 100 MG ORAL TWICE A DAY, CAP Donepezil Hcl* (Aricept*) 10 Mg Tablet 10 MG ORAL DAILY, TAB Enoxaparin* (Lovenox*) 30 Mg/0.3 Ml Inj 30 MG SUBQ DAILY, #30 EA 0 Refills Ferrous Sulfate (Feosol) 325 Mg Tablet 325 MG PO TID, TAB Hydrocodone Bit/Acetaminophen 7.5-325* (Frederick 7.5-325*) 1 Each Tablet 1 TAB ORAL Q4H PRN for Moderate Pain (Pain Scale 4-6), #30 TAB 0 Refills Hydromorphone Hcl (Dilaudid) 1 Mg/1 Ml Liquid 1 MG SUBQ Q4HR for Severe Pain (Pain Scale 7-10), ML Lidocaine (Lidoderm) 1 Each Adh..patch 1 PATCH TOPIC DAILY, #7 PATCH 0 Refills Patch(es) may remain in place for up to 12 hours in any 24-hour period. Lorazepam* (Ativan*) 0.5 Mg Tablet 0.5 MG ORAL BID PRN for For Anxiety, TAB Memantine Hcl* (Namenda*) 5 Mg Tablet 5 MG ORAL TWICE A DAY, TAB Metoprolol Tartrate* (Metoprolol Tartrate*) 25 Mg Tablet 25 MG ORAL EVERY 12 HOURS, TAB Polyethylene Glycol 3350* (Miralax*) 17 Gm Powd.pack 17 GM ORAL HS for Constipation, PACKET Risperidone (Risperidone) 0.25 Mg Tablet 1 MG PO BID, TAB Zolpidem Tartrate* (Ambien*) 5 Mg Tablet 5 MG ORAL BEDTIME PRN for Insomnia, TAB Discontinued Medications: Bisacodyl (Bisacodyl) 10 Mg/30 Ml Enema 10 MG RC EVERY 12 HOURS for Constipation, EA Docusate Sodium* (Colace*) 100 Mg Capsule 100 MG ORAL THREE TIMES A DAY, CAP Lorazepam* (Lorazepam*) 1 Mg Tablet 1 MG ORAL Q6HR, TAB Magnesium Hydroxide* (Milk Of Magnesia*) 2,400 Mg/10 Ml Oral.susp 30 ML ORAL DAILY, ML Magnesium Hydroxide* (Milk Of Magnesia*) 400 Mg/5 Ml Oral.susp 30 ML ORAL DAILY PRN for Constipation, ML Metoprolol Tartrate* (Metoprolol Tartrate*) 50 Mg Tablet 50 MG ORAL EVERY 12 HOURS, TAB Multivitamins* (Multivitamins*) 1 Each Tablet 1 TAB ORAL DAILY, TAB 0 Refills Zinc Sulfate (Zinc Sulfate*) 220 Mg Capsule 220 MG ORAL DAILY, CAP 0 Refills Discharge Condition Upon Discharge: stable Discharge Disposition Patient was discharged to [facility] Discharge Diagnoses: Stefan (Mandy Bo NP Mar 08, 2017 10:04
--- NOTE | 2017-03-08 19:15 | Progress Note ---
DATE: 03/03/2017 Subjective: The patient is an 81-year-old female patient, confused and disorganized. Plan: Risperdal 1 mg twice day, Aricept 10 mg at bedtime, and Namenda 5 mg twice a day to augment the Aricept to prevent any decline in cognition. Chart reviewed and discussed with staff. Seen and assessed at the bedside. Paramjit Avery M.D. DR: PHUONG JOB#: [id number] CC:
--- NOTE | 2017-03-09 05:45 | Discharge Summary 2 SIG ---
DATE OF ADMISSION: 03/01/2017 DATE OF DISCHARGE: 03/06/2017 Reason For Admission: 81-year-old female with history of hypertension, dementia, and psychiatric history, presented to emergency department with left hip pain after a fall. The patient resides at the nursing home facility. Fall was witnessed by nurses. No reported head injury. No loss of consciousness. No blackouts. The patient presented with left-sided hip pain, described as throbbing, and nonradiating. The patient was unable to bear weight. She denied any other injury. She was afebrile. Vital signs were stable. Femur x-ray revealed left intertrochanteric hip fracture. CT of the pelvis also revealed left intertrochanteric hip fracture. Laboratory workup revealed leukocytosis -14.3 , anemia and evidence of renal insufficiency. The patient was admitted for further management. ADMITTING DIAGNOSES: 1. Status post mechanical fall. 2. Left hip fracture. 3. Encephalopathy 4. Hypertension. 5. Anemia. 6. Renal insufficiency. Hospital Stay: The patient was admitted. Orthopedic consult along with ID and Cardiology and pain specialist consults were requested. Die Repair Machinist saw the patient and cleared the patient for surgery. The patient had undergone echocardiogram prior to surgery, which revealed preserved ejection fraction of 60% to 65% and significant left ventricular hypertrophy. Die Repair Machinist cleared the patient for surgery and stressed importance of DVT prophylaxis after surgery. On the next day, on 03/02/2017, the patient had a BUN - 24 and creatinine -1.4. Nephrology consult was requested. The patient was on the IV fluids. Per cattle dealer, acute renal failure was likely secondary to dehydration. Orthopedic surgeon saw and evaluated the patient. The patient subsequently had undergone on 03/03/2017 open reduction and internal fixation of left hip fracture with short Gamma nail. Pain management was provided. Pain specialist closely followed. DVT prophylaxis started when the surgeon cleared postoperatively. Fall precaution were maintained. The patient was working with physical and occupational therapists. Psychiatrist had seen and evaluated the patient due to psychiatric issues and optimized psychiatric medication regimen. The patient was on Risperdal, Aricept , and Namenda. Behavior was controlled. Mood was stable. Blood pressure was managed with beta-chelly and calcium channel chelly, and was stable. Patient initially with IV fluids to correct dehydration. IV fluids stopped after patient was able to tolerate diet. Pipe Insulator Helper recommended to avoid nephrotoxics, especially nonsteroidal anti-inflammatory drugs. Acute renal failure resolved, which was likely secondary to dehydration. Anemia workup revealed evidence of anemia of chronic disease. However, the patient also exhibited postoperative anemia, requiring blood transfusion. The patient received one unit of packed red blood cells. Waste Water Or Water Plant Operator closely followed. The patient was on Epogen. Counts were closely monitored. ID followed for leukocytosis. Leukocytosis was only for one day and resolved, likely postoperative and reactive. Urinalysis was negative. Blood culture were negative. The patient was off antibiotic and was closely observed. The patient was afebrile. No clinical signs of infection. Wound clean. No respiratory symptoms. Dietary recommendations were implemented. Noted elevated TSH. Free T4 was within normal limits. The patient likely had a subclinical hypothyroidism. Recommended to check thyroid panel in one to two months. The patient was subsequently cleared for transfer to [facility]. FINAL DIAGNOSES: 1. Status post mechanical fall. 2. Left hip intertrochanteric fracture. 3. Status post open reduction and internal fixation of left hip fracture on 03/03/2017. 4. Left hip pain. 5. Hypertension. 6. Dementia. 7. Severe protein-calorie malnutrition. 8. Anemia of chronic disease. 9. Acute anemia postoperatively requiring blood transfusion. 10. Acute renal failure, likely due to dehydration -resolved 10. Elevated thyroid stimulating hormone, subclinical hypothyroidism. DISCHARGE MEDICATIONS: See medication reconciliation list. Discharge Instructions: [place] [facility] [place] medical doctor at the hospital. Jong Jain D.O. Mandy Aviles (Vanchtein) NVanessa DR: SANA JOB#: [id number] CC: SOFI
== END 2017-03-06 19:55 | DRG 480 ==
LOC: EDBD 10:50 → EMR 11:20 → 3E 12:28 → EDBEDREQ 13:36
PROC: 0QS704Z Reposition Left Upper Femur with Internal Fixation Device, Open Approach (ICD-10-PCS; principal; 2017-03-03 07:00)
PROC: 30233N1 Transfusion of Nonautologous Red Blood Cells into Peripheral Vein, Percutaneous Approach (ICD-10-PCS; 2017-03-05)
DX: S72.145A Nondisplaced intertrochanteric fracture of left femur, initial encounter for closed fracture (principal); E43 Unspecified severe protein-calorie malnutrition; N17.0 Acute kidney failure with tubular necrosis; G93.40 Encephalopathy, unspecified; F03.90 Unspecified dementia, unspecified severity, without behavioral disturbance, psychotic disturbance, mood disturbance, and anxiety; E86.0 Dehydration; E11.22 Type 2 diabetes mellitus with diabetic chronic kidney disease; D50.0 Iron deficiency anemia secondary to blood loss (chronic); Z68.1 Body mass index [BMI] 19.9 or less, adult; D72.829 Elevated white blood cell count, unspecified; R62.7 Adult failure to thrive; G47.00 Insomnia, unspecified; I12.9 Hypertensive chronic kidney disease with stage 1 through stage 4 chronic kidney disease, or unspecified chronic kidney disease; N18.9 Chronic kidney disease, unspecified; F20.9 Schizophrenia, unspecified; E02 Subclinical iodine-deficiency hypothyroidism; Z91.81 History of falling; W19.XXXA Unspecified fall, initial encounter; Y92.129 Unspecified place in nursing home as the place of occurrence of the external cause
CPT/HCPCS: 36415; 72170; 72192; 80048; 80053; 81001; 82043; 82044; 82270; 82378; 82570; 82607; 82746; 83540; 83550; 83615; 84300; 84439; 84443; 85007; 85025; 85044; 85060; 85610; 85651; 85730; 86850; 86900; 86901; 86920; 87040; 87081; 93306; 94003; 94150; 97803; 99285; J2250